=== PATIENT | female | born 1975 | race Caucasian/White ===

== ENCOUNTER 2018-01-08 13:53 | Emergency (ER) | payer BC, SELFPAY ==
[2018-01-08 14:02] VITALS: BP 127/80; PULSE 74; RESP 20; TEMP 36.6; O2SAT 96; BMI 38.2
--- NOTE | 2018-01-08 14:25 | HMH.EDUTC ---
[facility] [place] Impression: Migraine headache without aura Qualifiers: Status migrainosus presence: without status migrainosus Intractability: intractable Qualified Code(s): G43.019 - Migraine without aura, intractable, without status migrainosus Disposition: Home, Self-Care Condition on Discharge: Good Instructions: Migraine -- Adult, DI for Migraine, DI for Chronic Pain -- Adult Additional Instructions: Take over the counter Motrin or Tylenol as needed for pain Go home and lay down and alow medication to help with pain FOllow up with family doctor in 24-48 hours if no improvement or any worsening of symptoms, Straight to ER if any worsening of symptoms or vision disturbances Return if needed Referrals: Romulo Hudson [Primary Care Provider] - Time of Disposition: 14:48 Medical Decision Making - Medical Records Medical records reviewed: Yes: I reviewed the patient's medical records. - Rodríguez Inquiry Pt receiving controlled substance: No Rodríguez was queried for this patient: No Vital Signs: 01/08/18 14:02 01/08/18 15:25 Temperature 98 F 98 F Temperature Source Temporal Artery Scan Pulse Rate 74 Pulse Rate [Right] 74 Respiratory Rate 20 20 Blood Pressure 127/80 Blood Pressure [Right Arm] 127/80 Blood Pressure Mean [Right Arm] 95 Blood Pressure Source [Right Arm] Automatic Cuff Blood Pressure Position [Right Arm] Sitting 02 Sat by Pulse Oximetry 96 Oxygen Delivery Method Room Air Orders (Tests/Meds): ED MEDICATIONS Discontinued Medications Generic Name Dose Route Start Last Admin Trade Name Freq PRN Reason Stop Dose Admin Ketorolac Tromethamine 60 mg 01/08/18 14:38 01/08/18 15:09 Toradol 60mg/2ml Vial IM 01/08/18 14:39 60 mg ONCE ONE Administration Metoclopramide HCl 10 mg 01/08/18 14:38 01/08/18 15:09 Metoclopramide 10mg Tablet PO 01/08/18 14:39 10 mg ONCE ONE Administration [facility] [place] - General Stated complaint: Bad Johnston, Abd Pain Time Seen by Provider: 01/08/18 14:35 Mode of Arrival: Ambulatory Source of Information: Patient Limitations: No Limitations Description of Symptoms (Recalled from Triage Doc. by RN): HEADACHE, NAUSAE TODAY HEENT Symptoms (Recalled from RN notes): Yes Resp Symptoms (Recalled from RN notes): No Skin Symptoms (Recalled from RN notes): No MS Symptoms (Recalled from RN notes): No Functional Status (Recalled from RN notes): N - History of Present Illness Provider Complaint: States that she has a history of migraine headaches State that she hasn't had one since she had her ear piercing done to help control them State that she is having pain behind her eyes and hasn't taken anything for it States that she came in hoping to get an injection that would help with pain - Related Data Home Medications Medication Instructions Recorded Confirmed Lisinopril/Hydrochlorothiazide 20 mg PO DAILY 01/08/18 01/08/18 [Lisinopril-Hctz 20-12.5 mg Tab] Allergies Allergy/AdvReac Type Severity Reaction Status Date / Time medroxyprogesterone Allergy Intermediate I-RASH Verified 01/08/18 14:05 [From PROVERA] [employer] Allergy Mild RASH, Uncoded 10/10/17 14:27 ITCHING - Worker's Comp Is this a Worker's Comp case?: No [facility] History I have reviewed the patient's past medical history: Yes Other Surgeries: Yes: Diagnostic Lap, Hysterectomy-Total, Tubal Ligation Comment: gallbladder, 01/2009 - Social History Smoking Status: Never smoker Alcohol Intake: never - Psychiatric History Expresses thoughts of harming self/others: None Suicide Plan Description: No Plan Family Hx:: Heart Attack, Diabetes, Hypertension ROS Obtained: Yes All systems reviewed & no additional complaints - Constitutional Constitutional: Reports headache(s) Physical Exam - General General appearance: alert, in no apparent distress - Eye Eye exam: Present: normal appearance, PERRL, EOMI - ENT ENT exam: Present: other (De
[2018-01-08 15:25] VITALS: BP 127/80; PULSE 74; RESP 20; TEMP 36.6
== END 2018-01-08 15:38 | disposition home or self-care (01) ==
PROVIDERS: Emergency Provider Nurse Practitioner; Family Provider Internal Medicine; PCP Internal Medicine
DX: G43.019 Migraine without aura, intractable, without status migrainosus (principal); I10 Essential (primary) hypertension
CPT/HCPCS: 96372; 99201

== ENCOUNTER → 2019-03-15 08:57 | Outpatient (CLI) | payer BC, SELFPAY ==
--- NOTE | 2019-03-15 09:01 | MM_ITS ---
MM Dig screening mamm BI w/CAD ORDERING PHYSICIAN : Eyad Cross MD PATIENT AGE: 43 years GENDER: Female COMPARISON: March 22, 2017 bilateral mammogram INDICATION: . Patient takes estradiol 2 mg...: Routine Screening Mammogram no new complaints Family history. Maternal cousin and maternal aunt with breast cancer. TECHNIQUE: Standard CC and MLO images were obtained. R2 CAD reviewed. Additional right axillary cc view included FINDINGS: Low-density breast with generalized fatty replacement. Minimal residual fibroglandular elements. No suspicious nor dominant mass. No suspicious calcifications either breast. No interval change since prior study. There are 2 Small less than 1 cm intramammary nodes at the deep axillary right breast again observed and stable. IMPRESSION: ...... Stable bilateral mammogram. No areas of significant concern. No interval change. Low-density breast Bilateral follow-up in one year. BI-RADS Category: 1 Negative RECOMMENDED FOLLOW-UP: 1YR 1 YEAR FOLLOW-UP (A letter has been sent to the patient regarding results of the study.)
--- NOTE | 2019-03-15 09:01 | US_ITS ---
US transvaginal Ordering Physician: Eyad Cross MD Patient Age: 43 years: Female HISTORY: ITS.REASON: US T/V- F/U on Ovarian Cystfollow-up ovarian cyst MW TECHNIQUE: Transvaginal pelvic ultrasound COMPARISON :Pelvic ultrasound 12/05/2018 FINDINGS Uterus and left ovary have been previously removed. Surgically absent. Overall right ovary appears significantly decreased in size and more normal than previous study. The right ovary appears more normal today:. It measures 2.2 cm maximum length x 1.5 centimeters x 1.3 cm. .(In November it measured over 4 cm length) There is a 1.1 cm hypoechoic area which appears likely residual of previously noted hemorrhagic cyst, debris-filled cyst most likely. .. Significant regression in interval . & At this point not of significant concern. Only One or 2 other small less than 5 mm follicles may be present in the right ovary otherwise . No fluid in cul-de-sac. IMPRESSION Uterus & left ovary have been surgically removed.. . The right ovary has more normal appearance today with marked decrease in overall size since November .. Right ovary now measuring up to 2.2 cm maximally (previously in November over 4 cm size) The previously complex cyst noted in November has decreased significantly size. Only a small residual 1.1 cm debris-filled cyst remains at its inferior pole right ovary seen today.
== END ==
PROVIDERS: PCP Internal Medicine; Visit Provider Nurse Practitioner Obstetrics & Gynecology
DX: Z12.31 Encounter for screening mammogram for malignant neoplasm of breast (principal); N83.209 Unspecified ovarian cyst, unspecified side
CPT/HCPCS: 76830; 77067

== ENCOUNTER → 2020-06-05 17:22 | Outpatient (CLI) | payer BC, SELFPAY | PROVIDERS: PCP Internal Medicine; Visit Provider Internal Medicine | DX: G47.33 Obstructive sleep apnea (adult) (pediatric) (principal); G47.10 Hypersomnia, unspecified; R53.83 Other fatigue; E66.9 Obesity, unspecified; I10 Essential (primary) hypertension | CPT/HCPCS: G0399 ==

== ENCOUNTER 2020-07-26 11:05 | Emergency (ER) | payer BC, SELFPAY ==
[2020-07-26 11:38] VITALS: BP 163/98; PULSE 81; RESP 19; TEMP 37; O2SAT 98; BMI 35.2
--- NOTE | 2020-07-26 11:42 | HMH.EDUTC ---
[facility] [place] Disposition Clinical Impression: URI (upper respiratory infection) Qualifiers: URI type: unspecified URI Qualified Code(s): J06.9 - Acute upper respiratory infection, unspecified Disposition: Home, Self-Care Condition on Discharge: Good Instructions: Sore Throat, DI for Nasal Congestion Additional Instructions: *Monitor Temp, Over the counter Motrin or Tylenol as directed/as needed Tylenol every 4 hours and Motrin every 6 hours (as long as your family doctor has told you that you can take it) for fever or pain. and straight to ER if unable to lower temp less than 101.0 after medication given *Warm salt water gargles may help to soothe the throat *Throat Lozenges *Warm fluids like tea with honey may help to soothe the throat *Sleep elevated *Humidifier/Vaporizer *Flonase 2 sprays in each nostril daily but be aware that it may take 2-3 days before you notice improvement Your throat swab was sent for culture. Those results are typically sent to your primary care. Be sure to follow up in 2-3 days with your family doctor/primary care physician if no improvement so they can review those result and treat if necessary. If you don?t have a primary care doctor, I recommend you get one but in the mean time, you will have to return to a walk in clinic Follow up IMMEDIATELY for new or worsening symptoms or no Noticeable improvement over the next 48-72 hours. 911 for difficulty breathing or swallowing Prescriptions: Fluticasone Propionate [Flonase 50mcg nasal spray 16gm] 1 - 2 spr NS DAILY #1 bottle Transmission Status: Received by [facility] #[id number] Referrals: Romulo Hudson [Primary Care Provider] - As needed Time of Disposition: 11:48 Medical Decision Making - Rodríguez Inquiry Pt receiving controlled substance: No Rodríguez was queried for this patient: No Vital Signs: 07/26/20 11:38 Temperature 98.6 F Temperature Source Oral Pulse Rate [Radial] 81 Respiratory Rate 19 Blood Pressure [Right Arm] 163/98 H Blood Pressure Mean [Right Arm] 119 Blood Pressure Source [Right Arm] Automatic Cuff Blood Pressure Position [Right Arm] Sitting 02 Sat by Pulse Oximetry 98 Oxygen Delivery Method Room Air - Lab Data Lab results reviewed: Yes: I reviewed the patient's lab results. Lab Results 07/26/20 11:20: Strep Scn Rapid Clinic Negative Orders (Tests/Meds): ED MEDICATIONS Discontinued Medications Generic Name Dose Route Start Last Admin Trade Name Heidi VILLEGAS Reason Stop Dose Admin Ceftriaxone Sodium 1 gm 07/26/20 11:45 07/26/20 11:57 Ceftriaxone 1gm Vial IM 07/26/20 11:46 1 gm ONCE ONE Administration Protocol Lidocaine HCl 0 ml 07/26/20 11:45 07/26/20 11:57 Lidocaine 1% 5ml Pf Vial IM 07/26/20 11:46 2.1 ml ONCE ONE Administration Methylprednisolone Sodium Succinate 125 mg 07/26/20 11:45 07/26/20 11:57 Methylprednisolone Sod Succ 125mg Vial IM 07/26/20 11:46 125 mg ONCE ONE Administration ORDERS Category Date Time Status Strep Screen Confirmation Stat Micro 07/26/20 11:20 Received Medical Decision Narrative: Patient reports that she has taken Rocephin and SoluMedrol before without complications and reactions [facility] [place] HPI - General Stated complaint: drainage sinus Time Seen by Provider: 07/26/20 11:15 Mode of Arrival: Ambulatory Source of Information: Patient Limitations: No Limitations Description of Symptoms (Recalled from Triage Doc. by RN): runny nose, sinus pressure, sneezing x 3 days HEENT Symptoms (Recalled from RN notes): Yes Resp Symptoms (Recalled from RN notes): No Skin Symptoms (Recalled from RN notes): No MS Symptoms (Recalled from RN notes): No Functional Status (Recalled from RN notes): wnl - History of Present Illness Provider Complaint: Patient states that she has been having sinus pressure, sneezing and sore throat for several days States that today it was worse and she was worried that she may have strep States that she has been lane
[2020-07-26 11:55] LABS: UTC Strep Screen (Rapid) Negative (Negative)
[2020-07-26 12:15] VITALS: BP 163/98; PULSE 81; RESP 19; TEMP 37; O2SAT 98
== END 2020-07-26 12:16 | disposition home or self-care (01) ==
PROVIDERS: Emergency Provider Nurse Practitioner; PCP Internal Medicine
DX: J06.9 Acute upper respiratory infection, unspecified (principal); E11.9 Type 2 diabetes mellitus without complications; E78.5 Hyperlipidemia, unspecified; I10 Essential (primary) hypertension; Z79.899 Other long term (current) drug therapy; Z88.8 Allergy status to other drugs, medicaments and biological substances; Z90.49 Acquired absence of other specified parts of digestive tract; Z90.710 Acquired absence of both cervix and uterus
CPT/HCPCS: 87880; 96372; 99201

== ENCOUNTER 2020-09-11 11:39 | Emergency (ER) | payer BC, SELFPAY ==
[2020-09-11 12:55] VITALS: BP 133/92; PULSE 84; RESP 18; TEMP 37.1; O2SAT 98; BMI 36.3
--- NOTE | 2020-09-11 13:17 | HMH.EDUTC ---
[facility] [place] Clinical Impression: Viral syndrome, Exposure to COVID-19 virus Disposition: Home, Self-Care Condition on Discharge: Good Instructions: Preventing the Spread of Coronavirus Discharge Instructions Additional Instructions: Drink plenty of fluids. Take tylenol for pain or fever. Return if you begin to have difficulty breathing. Follow up with your regular doctor. GO TO THE ER FOR ANY WORSENING SYMPTOMS Prescriptions: Ondansetron [Zofran 4mg ODT] 4 mg PO Q8HP PRN #12 tab.rapdis PRN Reason: Nausea Transmission Status: Received by [facility] Azithromycin [Z-John 250mg Tab*] 250 mg PO UD DOSE PK #6 tab Transmission Status: Received by [facility] Referrals: Romulo Hudson [Primary Care Provider] - Time of Disposition: 13:21 Medical Decision Making - Medical Records Medical records reviewed: No: I reviewed the patient's medical records. - Rodríguez Inquiry Pt receiving controlled substance: No Vital Signs: 09/11/20 12:55 09/11/20 13:22 Temperature 98.7 F 98.7 F Temperature Source Oral Pulse Rate 84 Pulse Rate [Right Brachial] 84 Respiratory Rate 18 18 Blood Pressure 133/92 H Blood Pressure [Right Arm] 133/92 H Blood Pressure Mean [Right Arm] 105 Blood Pressure Source [Right Arm] Automatic Cuff Blood Pressure Position [Right Arm] Sitting 02 Sat by Pulse Oximetry 98 Oxygen Delivery Method Room Air Orders (Tests/Meds): ORDERS Category Date Time Status Covid-19 Nasal PCR ([facility]) Routine Lab 09/11/20 12:53 Ordered Covid-19 Nasal PCR ([facility]) Routine Lab 09/11/20 12:55 Received [facility] [place]PI - General Stated complaint: Weakness, cough, headache Time Seen by Provider: 09/11/20 13:17 Mode of Arrival: Ambulatory Source of Information: Patient Limitations: No Limitations Description of Symptoms (Recalled from Triage Doc. by RN): PATIENT REQUESTING COVID TEST. C/O COUGH, CONGESTION, AND HEADACHE X 1 WEEK HEENT Symptoms (Recalled from RN notes): Yes Resp Symptoms (Recalled from RN notes): Yes Skin Symptoms (Recalled from RN notes): No MS Symptoms (Recalled from RN notes): No Functional Status (Recalled from RN notes): WNL - History of Present Illness Provider Complaint: She states that she was exposed to covid 19 last week. Over the past 4 days she has had body aches, sore throat, cough, chest congestion. - Related Data Home Medications Medication Instructions Recorded Confirmed atorvastatin 20 mg tablet PO #30 tab 03/30/19 04/09/19 lisinopril 20 PO #30 tab 03/30/19 04/09/19 mg-hydrochlorothiazide 12.5 mg tablet Previous Rx's Medication Instructions Recorded estradiol 2 mg tablet 2 mg PO DAILY #30 tab 02/19/19 Nitrofurantoin Monohyd/M-Cryst 100 mg PO BID 10 Days #20 cap 11/03/19 [Macrobid 100 mg Capsule] Phenazopyridine HCl [Pyridium 200 pow PO TID #6 tab 11/03/19 200mg Tablet] phentermine 37.5 mg tablet 37.5 mg PO DAILY #30 tab 03/04/20 Fluticasone Propionate [Flonase 1 - 2 spr NS DAILY #1 bottle 07/26/20 50mcg nasal spray 16gm] Azithromycin [Z-John 250mg Tab*] 250 mg PO UD DOSE PK #6 tab 09/11/20 Ondansetron [Zofran 4mg ODT] 4 mg PO Q8HP PRN #12 tab.rapdis 09/11/20 Allergies Allergy/AdvReac Type Severity Reaction Status Date / Time medroxyprogesterone Allergy Intermediate I-RASH Verified 04/09/19 17:07 [From PROVERA] hydrocodone Allergy Verified 04/09/19 17:07 [employer] Allergy Mild RASH, Uncoded 04/09/19 17:07 ITCHING - Worker's Comp Is this a Worker's Comp case?: No H History - Hepatitis A Screen Drug use history?: No High risk sexual behaviors?: No History of sexually transmitted infection?: No Currently employed?: No Childcare worker?: No Do you have indoor plumbing?: Yes Do you have electricity?: Yes Attestation statement:: This patient has been screened for Hepatitis A risk factors. I have reviewed the patient's past medical history: Yes Medical His
[2020-09-11 13:22] VITALS: BP 133/92; PULSE 84; RESP 18; TEMP 37.1; O2SAT 98
== END 2020-09-11 13:28 | disposition home or self-care (01) ==
PROVIDERS: Emergency Provider Nurse Practitioner Family; PCP Internal Medicine
DX: Z20.828 Contact with and (suspected) exposure to other viral communicable diseases (principal); B34.9 Viral infection, unspecified; I10 Essential (primary) hypertension; E11.9 Type 2 diabetes mellitus without complications; E78.5 Hyperlipidemia, unspecified; Z79.899 Other long term (current) drug therapy
CPT/HCPCS: 99201; U0003

== ENCOUNTER 2020-09-23 15:08 | Emergency (ER) | payer BC, SELFPAY ==
[2020-09-23 15:35] VITALS: BP 140/89; PULSE 88; RESP 18; TEMP 36.7; O2SAT 95; BMI 36.0
--- NOTE | 2020-09-23 15:45 | HMH.EDUTC ---
[facility] [place] Dis[place] Clinical Impression: Viral upper respiratory infection, Exposure to COVID-19 virus Disposition: Home, Self-Care Condition on Discharge: Good Instructions: Preventing the Spread of Coronavirus Discharge Instructions, Sore Throat, Cough Additional Instructions: *Monitor Temp, Over the counter Motrin or Tylenol as directed/as needed Tylenol every 4 hours and Motrin every 6 hours (as long as your family doctor has told you that you can take it) for fever or pain. and straight to ER if unable to lower temp less than 101.0 after medication given *Warm salt water gargles may help to soothe the throat *Throat Lozenges *Warm fluids like tea with honey may help to soothe the throat *Sleep elevated *Humidifier/Vaporizer Follow up IMMEDIATELY for new or worsening symptoms or no Noticeable improvement over the next 48-72 hours. 911 for difficulty breathing or swallowing You was tested for today for COVID19 your test result should be back in the next 24-48 hours, you may call to the [facility] tomorrow to see if your test results are back however could take up to 48 hours before results are back [phone] [facility] hours are 9am-9pm You was given a handout with instructions for Self Quarantine and Self isolation for while you wait on test results and what to do if they are positive If you are positive the Health Dept will be contacting you also Referrals: Romulo Hudson [Primary Care Provider] - As needed Forms: Work/School Release Time of Disposition: 15:49 Medical Decision Making - Rodríguez Inquiry Pt receiving controlled substance: No Rodríguez was queried for this patient: No Vital Signs: 09/23/20 15:35 Temperature 98.1 F Temperature Source Oral Pulse Rate [Left] 88 Respiratory Rate 18 Blood Pressure [Right Arm] 140/89 Blood Pressure Mean [Right Arm] 106 Blood Pressure Source [Right Arm] Automatic Cuff Blood Pressure Position [Right Arm] Sitting 02 Sat by Pulse Oximetry 95 Oxygen Delivery Method Room Air [facility] [place] HPI - General Stated complaint: Headache, cough, has COVID Time Seen by Provider: 09/23/20 15:45 Mode of Arrival: Ambulatory Source of Information: Patient Limitations: No Limitations Description of Symptoms (Recalled from Triage Doc. by RN): Covid test-symptomatic headache, cough, sore throat x1 week HEENT Symptoms (Recalled from RN notes): Yes Resp Symptoms (Recalled from RN notes): Yes Skin Symptoms (Recalled from RN notes): No MS Symptoms (Recalled from RN notes): No Functional Status (Recalled from RN notes): WNL - History of Present Illness Provider Complaint: Patient state that her recently tested positive for COVID States that for the last week she has been having sore throat, low grade fever, and body aches and worried that she may have it now too States that several other family members recently tested positive also - Related Data Home Medications Medication Instructions Recorded Confirmed atorvastatin 20 mg tablet PO #30 tab 03/30/19 04/09/19 lisinopril 20 PO #30 tab 03/30/19 04/09/19 mg-hydrochlorothiazide 12.5 mg tablet Previous Rx's Medication Instructions Recorded estradiol 2 mg tablet 2 mg PO DAILY #30 tab 02/19/19 Nitrofurantoin Monohyd/M-Cryst 100 mg PO BID 10 Days #20 cap 11/03/19 [Macrobid 100 mg Capsule] Phenazopyridine HCl [Pyridium 200 pow PO TID #6 tab 11/03/19 200mg Tablet] phentermine 37.5 mg tablet 37.5 mg PO DAILY #30 tab 03/04/20 Fluticasone Propionate [Flonase 1 - 2 spr NS DAILY #1 bottle 07/26/20 50mcg nasal spray 16gm] Azithromycin [Z-John 250mg Tab*] 250 mg PO UD DOSE PK #6 tab 09/11/20 Ondansetron [Zofran 4mg ODT] 4 mg PO Q8HP PRN #12 tab.rapdis 09/11/20 Allergies Allergy/AdvReac Type Severity Reaction Status Date / Time medroxyprogesterone Allergy Intermediate I-RASH Verified 04/09/19 17:07 [From PROVERA] hydrocodone Allergy Verified 04/09/19 17:07 [employer] Allergy Mild RASH, Uncoded
[2020-09-23 16:14] VITALS: BP 140/89; PULSE 88; RESP 18; TEMP 36.7; O2SAT 95
[2020-09-25 13:30] LABS: Covid-19 Nasal PCR Sendout Lex NOT DETECTED
== END 2020-09-23 16:18 | disposition home or self-care (01) ==
PROVIDERS: Emergency Provider Nurse Practitioner; PCP Internal Medicine
DX: Z20.828 Contact with and (suspected) exposure to other viral communicable diseases (principal); J06.9 Acute upper respiratory infection, unspecified; I10 Essential (primary) hypertension; E78.5 Hyperlipidemia, unspecified; E11.9 Type 2 diabetes mellitus without complications; Z79.899 Other long term (current) drug therapy
CPT/HCPCS: 99201; U0004

== ENCOUNTER 2020-09-28 15:14 | Emergency (ER) | payer BC, SELFPAY ==
[2020-09-28 15:36] VITALS: BP 140/94; PULSE 98; RESP 19; TEMP 37.1; O2SAT 98; BMI 36.0
--- NOTE | 2020-09-28 15:36 | XR_ITS ---
PROCEDURE: XR CHEST 2V CLINICAL HISTORY: COUGH Fever and cough COMPARISON: No exams were available for comparison FINDINGS: The cardiomediastinal silhouette and pulmonary vascularity are within normal limits. The lungs are clear without infiltrates, suspicious nodules, or pleural effusions. There is a mild lower thoracic curvature convex left. IMPRESSION: No acute findings. Dictated by: Bernardo Harris MD 09/28/2020 16:42 Bernardo Harris MD in [place] 09/28/2020 16:42
[2020-09-28 15:42] VITALS: BP 140/64; PULSE 98; RESP 19; TEMP 37.1; O2SAT 98
--- NOTE | 2020-09-28 15:56 | HMH.EDUTC ---
[facility] [place] Clinical Impression: Bronchitis Sinusitis Qualifiers: Sinusitis location: unspecified location Chronicity: unspecified Qualified Code(s): J32.9 - Chronic sinusitis, unspecified Disposition: Home, Self-Care Condition on Discharge: Good Instructions: Sinusitis, DI for Cough -- Adult, Guaifenesin Additional Instructions: ? Start antibiotic today. Be sure to complete entire prescription even if feeling better ? Monitor temp. Tylenol every 4 hours as needed and / or ibuprofen every 6 hours as needed ( As long as your primary care physician has told you that it ok to take both. For fever/aches/pains ER if no less than 101 despite Tylenol or Motrin ? Humidifier/vaporizer or hot steamy shower ? Inhaler every 4-6 hours as needed like we discussed. If unsure how to use it, ask pharmacist to demonstrate how. Should help open airways and improve cough, wheezing, and shortness of breath ? Mucinex during the day for your cough and cough suppressant only at night. Be sure to drink lots of water. Insurance may not cover a prescriptions for mucinex. Might be cheaper to get 400mg tablets and take 2 tablet in the morning, mid-day and evening with lots of water. *Tessalon Perles will not cause drowsiness but use at bedtime to help stop cough so that you may get some rest. *Start steroid today. Helps with inflammation therefore, cough and wheezing. Follow directions on the package. Reviewed side effects. Patient reports taking them before. Follow up IMMEDIATELY for new or worsening of symptoms OR no noticeable improvement over the next 48-72 hours. 911 immediately for any life threatening symptoms such as chest pain or difficulty breathing Prescriptions: Albuterol Sulfate [Proventil-HFA 90mcg/puff Inh] 1 - 2 puffs IH Q4HP PRN #1 inh PRN Reason: Shortness Of Breath Transmission Status: [facility] Amoxicillin/Potassium Clav [Augmentin 875-125 Tablet] 1 tab PO Q12H 10 Days #20 tab Transmission Status: Re[facility] by [facility] Referrals: Romulo Hudson [Primary Care Provider] - As needed Forms: Work/School Release Time of Disposition: 16:26 Medical Decision Making - Rodríguez Inquiry Pt receiving controlled substance: No Rodríguez was queried for this patient: No Vital Signs: 09/28/20 15:36 09/28/20 15:42 Temperature 98.7 F 98.7 F Temperature Source Oral Pulse Rate 98 H Pulse Rate [Left] 98 H Respiratory Rate 19 19 Blood Pressure 140/64 Blood Pressure [Right Arm] 140/94 H Blood Pressure Mean [Right Arm] 109 Blood Pressure Source [Right Arm] Automatic Cuff Blood Pressure Position [Right Arm] Sitting 02 Sat by Pulse Oximetry 98 Oxygen Delivery Method Room Air Room Air Orders (Tests/Meds): ORDERS Category Date Time Status Covid-19 Nasal PCR [facility] 09/28/20 15:30 Received - Radiology Data #1 Image(s): Chest Image Reviewed: Yes I reviewed the patient's radiology image Preliminary Findings: Normal/NAD Medical Decision Narrative: Patient state that she has taken augmentin before without reactions or complications [facility] [place] - General Stated complaint: wants Covid test,treated for systoms Time Seen by Provider: 09/28/20 15:56 Mode of Arrival: Ambulatory Source of Information: Patient Limitations: No Limitations Description of Symptoms (Recalled from Triage Doc. by RN): Covid test-cough, sore throat, headache, chest discomfort when coughing HEENT Symptoms (Recalled from RN notes): Yes Resp Symptoms (Recalled from RN notes): Yes Skin Symptoms (Recalled from RN notes): No MS Symptoms (Recalled from RN notes): No Functional Status (Recalled from RN notes): wnl - History of Present Illness Provider Complaint: Patient state that her was positive for COVID and she was having symptoms last week and was tested and was negative States that she still isn[t feeling any better and wanted to get a chest xray State that she has pain in her left upper lung
[2020-09-30 14:00] LABS: Covid-19 Nasal PCR Sendout Lex NOT DETECTED
== END 2020-09-28 16:45 | disposition home or self-care (01) ==
PROVIDERS: Emergency Provider Nurse Practitioner; PCP Internal Medicine
DX: Z20.828 Contact with and (suspected) exposure to other viral communicable diseases (principal); J20.9 Acute bronchitis, unspecified; J32.9 Chronic sinusitis, unspecified; I10 Essential (primary) hypertension; Z79.899 Other long term (current) drug therapy
CPT/HCPCS: 71046; 99202; U0004

== ENCOUNTER 2021-01-29 12:59 | Emergency (ER) | payer BC, SELFPAY ==
[2021-01-29 13:10] VITALS: BP 138/116; PULSE 105; RESP 14; TEMP 37.3; O2SAT 96; BMI 36.0
[2021-01-29 13:38] LABS: UTC Influenza A Antigen Negative (Negative)
[2021-01-29 13:39] LABS: UTC Influenza B Antigen Negative (Negative)
--- NOTE | 2021-01-29 13:47 | HMH.EDUTC ---
[facility] [place] Disposition Clinical Impression: Viral syndrome Disposition: Home, Self-Care Condition on Discharge: Good Instructions: DI for Viral Syndrome Additional Instructions: Drink plenty of fluids. Take tylenol for pain or fever. Return if you begin to have difficulty breathing. Follow up with your regular doctor. GO TO THE ER FOR ANY WORSENING SYMPTOMS Take the zofran (ondesetron) for nausea. If your diarrhea continues, please return a sample to the lab for evaluation. Prescriptions: ondansetron HCL [Zofran 4mg Tab*] 4 mg PO Q8HP PRN #20 tab PRN Reason: Nausea Transmission Status: Received by [facility] Referrals: Romulo Hudson [Primary Care Provider] - Time of Disposition: 14:15 Medical Decision Making - Medical Records Medical records reviewed: No: I reviewed the patient's medical records. - Rodríguez Inquiry Pt receiving controlled substance: No Vital Signs: 01/29/21 13:10 01/29/21 14:20 Temperature 99.1 F 99.1 F Temperature Source Oral Oral Pulse Rate 102 H Pulse Rate [Right] 105 H Respiratory Rate 14 18 Blood Pressure 138/116 H Blood Pressure [Right Arm] 138/116 H Blood Pressure Mean [Right Arm] 123 Blood Pressure Source [Right Arm] Automatic Cuff Blood Pressure Position Sitting Blood Pressure Position [Right Arm] Sitting 02 Sat by Pulse Oximetry 96 Oxygen Delivery Method Room Air Room Air - Lab Data Lab results reviewed: Yes: I reviewed the patient's lab results. Lab Results 01/29/21 13:17: Influenza Type A Ag Negative, Influenza Type B Ag Negative [facility] [place] HPI - General Stated complaint: Weakness; diarhea Time Seen by Provider: 01/29/21 13:47 Mode of Arrival: Ambulatory Limitations: No Limitations Description of Symptoms (Recalled from Triage Doc. by RN): pt states she has been feeling bad for a couple of days. she has watery diarhea and states she passed out Wed. pt was exposed directly to the flu. HEENT Symptoms (Recalled from RN notes): No Resp Symptoms (Recalled from RN notes): No Skin Symptoms (Recalled from RN notes): No MS Symptoms (Recalled from RN notes): No Functional Status (Recalled from RN notes): na - History of Present Illness Provider Complaint: She states that for the past 2 days she has felt bad and had a diarrhea. She has not vomited, but she has had nausea. - Related Data Home Medications Medication Instructions Recorded Confirmed atorvastatin 20 mg tablet PO #30 tab 03/30/19 04/09/19 lisinopril 20 PO #30 tab 03/30/19 04/09/19 mg-hydrochlorothiazide 12.5 mg tablet Previous Rx's Medication Instructions Recorded estradiol 2 mg tablet 2 mg PO DAILY #30 tab 02/19/19 Nitrofurantoin Monohyd/M-Cryst 100 mg PO BID 10 Days #20 cap 11/03/19 [Macrobid 100 mg Capsule] Phenazopyridine HCl [Pyridium 200 pow PO TID #6 tab 11/03/19 200mg Tablet] phentermine 37.5 mg tablet 37.5 mg PO DAILY #30 tab 03/04/20 Fluticasone Propionate [Flonase 1 - 2 spr NS DAILY #1 bottle 07/26/20 50mcg nasal spray 16gm] Azithromycin [Z-John 250mg Tab*] 250 mg PO UD DOSE PK #6 tab 09/11/20 Ondansetron [Zofran 4mg ODT] 4 mg PO Q8HP PRN #12 tab.rapdis 09/11/20 Albuterol Sulfate [Proventil-HFA 1 - 2 puffs IH Q4HP PRN #1 inh 09/28/20 90mcg/puff Inh] Amoxicillin/Potassium Clav 1 tab PO Q12H 10 Days #20 tab 09/28/20 [Augmentin 875-125 Tablet] ondansetron HCL [Zofran 4mg Tab*] 4 mg PO Q8HP PRN #20 tab 01/29/21 Allergies Allergy/AdvReac Type Severity Reaction Status Date / Time medroxyprogesterone Allergy Intermediate I-RASH Verified 01/29/21 13:10 [From PROVERA] hydrocodone Allergy Verified 01/29/21 13:10 [employer] SWE[employer]ERS Allergy Mild RASH, Uncoded 04/09/19 17:07 ITCHING - Worker's Comp Is this a Worker's Comp case?: No H History - Hepatitis A Screen Drug use history?: No High risk sexual behaviors?: No History of sexually transmitted infection?: No Currently employed?: No [employer]
[2021-01-29 14:20] VITALS: BP 138/116; PULSE 102; RESP 18; TEMP 37.3; O2SAT 98
== END 2021-01-29 14:22 | disposition home or self-care (01) ==
PROVIDERS: Emergency Provider Nurse Practitioner Family; PCP Internal Medicine
DX: B34.9 Viral infection, unspecified (principal); I10 Essential (primary) hypertension; E78.5 Hyperlipidemia, unspecified; Z79.899 Other long term (current) drug therapy
CPT/HCPCS: 87804; 99202; G0463

== ENCOUNTER → 2021-06-11 10:46 | Outpatient (CLI) | payer BC, SELFPAY | PROVIDERS: PCP Internal Medicine; Visit Provider Internal Medicine | DX: Z20.822 Contact with and (suspected) exposure to COVID-19 (principal) | CPT/HCPCS: U0003 ==

== ENCOUNTER → 2021-08-30 10:48 | Outpatient (CLI) | payer BC, SELFPAY | PROVIDERS: PCP Internal Medicine; Visit Provider Nurse Practitioner | DX: Z20.822 Contact with and (suspected) exposure to COVID-19 (principal) | CPT/HCPCS: C9803; U0003; U0005 ==

== ENCOUNTER 2021-09-03 10:57 | Emergency (ER) | payer BC, SELFPAY ==
[2021-09-03 11:00] VITALS: BP 148/99; PULSE 87; RESP 22; TEMP 36.5; O2SAT 96; BMI 34.9
--- NOTE | 2021-09-03 11:24 | HMH.EDUTC ---
[facility] [place] Clinical Impression: URI (upper respiratory infection) Qualifiers: URI type: unspecified URI Qualified Code(s): J06.9 - Acute upper respiratory infection, unspecified Disposition: Home, Self-Care Condition on Discharge: Good Instructions: DI for Cough -- Adult, Benzonatate Additional Instructions: Continue taking medication as prescribed Follow up with your Family Doctor if no improvement or any worsening of symptoms Return if needed Humidifier/Vaporizer may help with cough and throat irritation Straight to ER if any life threatening symptoms Prescriptions: Benzonatate [Benzonatate 100mg cap] 100 mg PO TID PRN #15 cap PRN Reason: Cough Transmission Status: Received by [facility] Referrals: Romulo Hudson [Primary Care Provider] - As needed Forms: Work/School Release Time of Disposition: 12:10 Medical Decision Making - Rodríguez Inquiry Pt receiving controlled substance: No Rodríguez was queried for this patient: No Vital Signs: 09/03/21 11:00 09/03/21 12:21 Temperature 97.7 F 97.7 F Temperature Source Oral Pulse Rate 87 Pulse Rate [Right Brachial] 87 Respiratory Rate 22 22 Blood Pressure 148/99 H Blood Pressure [Right Arm] 148/99 H Blood Pressure Mean [Right Arm] 115 Blood Pressure Source [Right Arm] Automatic Cuff Blood Pressure Position [Right Arm] Sitting 02 Sat by Pulse Oximetry 96 Oxygen Delivery Method Room Air - Lab Data Lab results reviewed: Yes: I reviewed the patient's lab results. Orders (Tests/Meds): ED MEDICATIONS Discontinued Medications Generic Name Dose Route Start Last Admin Trade Name Freq PRN Reason Stop Dose Admin Ceftriaxone Sodium 1 gm 09/03/21 12:16 09/03/21 12:10 Ceftriaxone 1gm Vial IM 09/03/21 12:17 1 gm ONCE ONE Administration Lidocaine HCl 0 ml 09/03/21 12:16 09/03/21 12:10 Lidocaine 1% 5ml Pf Vial IM 09/03/21 12:17 2.1 ml ONCE ONE Administration - Radiology Data #1 Image(s): Chest Image Reviewed: Yes I have reviewed radiologist's interpretation No acute findings. [facility] [place] - General Stated complaint: possible bronchitis Time Seen by Provider: 09/03/21 11:24 Mode of Arrival: Ambulatory Source of Information: Patient Limitations: No Limitations Description of Symptoms (Recalled from Triage Doc. by RN): PATIENT C/O PRODUCTIVE COUGH WITH GREEN/BROWN SPUTUM, WEAKNESS, AND PAIN TO CHEST AND BACK WITH COUGH. WAS TREATED LAST WEEK WITH PO ANTIBIOTIC AND STEROID SHOT. DOES NOT FEEL BETTER HEENT Symptoms (Recalled from RN notes): No Resp Symptoms (Recalled from RN notes): Yes Skin Symptoms (Recalled from RN notes): No MS Symptoms (Recalled from RN notes): Yes Functional Status (Recalled from RN notes): WNL - History of Present Illness Provider Complaint: Patient states that seen PCP last week and was given a shot in the office States that it was not getting any better so she went back and was tested for COVID on Monday and it was negative and she was still having symptoms and saw him again and he give her another shot of something , cough tablets and a zpack States that she has been taking it but still not feeling like it is working so she came in to get checked again - Related Data Home Medications Medication Instructions Recorded Confirmed Liraglutide [Victoza 2-John] 1.8 mg SQ DAILY 09/03/21 09/03/21 Omeprazole [Omeprazole 40mg 40 mg PO DAILY 09/03/21 09/03/21 Capsule] estradioL [Estradiol] 2 mg PO DAILY 09/03/21 09/03/21 lisinopriL [Lisinopril] 20 mg PO DAILY 09/03/21 09/03/21 Previous Rx's Medication Instructions Recorded Benzonatate [Benzonatate 100mg 100 mg PO TID PRN #15 cap 09/03/21 cap] Allergies Allergy/AdvReac Type Severity Reaction Status Date / Time medroxyprogesterone Allergy Intermediate I-RASH Verified 01/29/21 13:10 [From PROVERA] hydrocodone Allergy Verified 01/29/21 13:10 [employer] SWEET[employer]ERS Allergy Mild RASH, Uncoded 04/09/19 17:07
--- NOTE | 2021-09-03 11:26 | XR_ITS ---
PROCEDURE: XR CHEST 2V CLINICAL HISTORY: cough COMPARISON: CR XR CHEST 2V from 09/28/2020 FINDINGS: The cardiomediastinal silhouette and pulmonary vascularity are within normal limits considering a slightly poor inspiration. The lungs are clear without infiltrates, suspicious nodules, or pleural effusions. No acute bony abnormalities. There is minor serpentine scoliotic curvature of the thoracic and lumbar spine. IMPRESSION: No acute findings. Dictated by: Dr. Bandar Helton MD 09/03/2021 11:49 Dr. Bandar Helton MD in [place] 09/03/2021 11:49
[2021-09-03 12:21] VITALS: BP 148/99; PULSE 87; RESP 22; TEMP 36.5; O2SAT 96
== END 2021-09-03 12:35 | disposition home or self-care (01) ==
PROVIDERS: Emergency Provider Nurse Practitioner; PCP Internal Medicine
DX: J06.9 Acute upper respiratory infection, unspecified (principal); E78.5 Hyperlipidemia, unspecified; I10 Essential (primary) hypertension; Z20.822 Contact with and (suspected) exposure to COVID-19
CPT/HCPCS: 71046; 96372; 99202; C9803; G0463; U0003; U0005

== ENCOUNTER → 2021-11-21 12:01 | Outpatient (CLI) | payer OTHER, SELFPAY | PROVIDERS: Visit Provider Nurse Practitioner | DX: Z20.822 Contact with and (suspected) exposure to COVID-19 (principal) | CPT/HCPCS: C9803; U0003; U0005 ==

== ENCOUNTER 2021-12-12 09:01 | Emergency (ER) | payer BC, SELFPAY ==
[2021-12-12 09:20] VITALS: BP 148/100; PULSE 91; RESP 19; TEMP 37; O2SAT 97; BMI 34.2
[2021-12-12 09:49] LABS: UTC Strep Screen (Rapid) Positive (Negative)
--- NOTE | 2021-12-12 10:01 | HMH.EDUTC ---
[facility] [place] Disposition Clinical Impression: Strep throat Conjunctivitis Qualifiers: Conjunctivitis type: unspecified Laterality: right Qualified Code(s): H10.9 - Unspecified conjunctivitis Disposition: Home, Self-Care Condition on Discharge: Good Instructions: Strep Throat, DI for Strep Throat Additional Instructions: *Monitor Temp, Over the counter Motrin or Tylenol as directed/as needed Tylenol every 4 hours and Motrin every 6 hours (as long as your family doctor has told you that you can take it) for fever or pain. and straight to ER if unable to lower temp less than 101.0 after medication given *Warm salt water gargles may help to soothe the throat *Throat Lozenges *Warm fluids like tea with honey may help to soothe the throat *Sleep elevated *Humidifier/Vaporizer *If you did not take Penicillin shot or was unable to, start taking antibiotic immediately and make sure that you take it for the FULL length of time although you should start to feel better in 24-48 hours *change toothbrush and toothpaste 24-48 hours after starting to take antibiotics so you do not reinfect yourself Monitor Temp. Tylenol and/or Ibuprofen as needed. ER if fever is no less than 101 despite alternating Tylenol and Ibuprofen * Encourage fluids, water, Gatorade, powerade, pedialyte if infant/toddler/or child *Cold fluids, popsicles and ice cream may feel good on his throat Follow up IMMEDIATELY for new or worsening symptoms or no Noticeable improvement over the next 48-72 hours. 911 for difficulty breathing or swallowing Prescriptions: Amoxicillin [Amoxicillin 875MG Tab] 875 mg PO Q12H #20 tab Transmission Status: Sent to [facility] Fluticasone Propionate [Flonase 50mcg nasal spray 16gm] 1 spr NS DAILY #1 each Transmission Status: Sent to [facility] Polymyxin B Sulf/Trimethoprim [Polytrim Ophth Soln 10mL Bottle] 2 drops EYE-RIGHT Q6H 7 Days #10 ml Transmission Status: Sent to [facility] Referrals: Romulo Hudson [Primary Care Provider] - As needed Time of Disposition: 10:10 Medical Decision Making - Rodríguez Inquiry Pt receiving controlled substance: No Rodríguez was queried for this patient: No Vital Signs: 12/12/21 09:20 12/12/21 10:23 Temperature 98.6 F 98.6 F Temperature Source Oral Pulse Rate 91 H Pulse Rate [Right Brachial] 91 H Respiratory Rate 19 19 Blood Pressure 148/100 H Blood Pressure [Right Arm] 148/100 H Blood Pressure Mean [Right Arm] 116 Blood Pressure Source [Right Arm] Automatic Cuff Blood Pressure Position [Right Arm] Sitting 02 Sat by Pulse Oximetry 97 Oxygen Delivery Method Room Air - Lab Data Lab results reviewed: Yes: I reviewed the patient's lab results. Lab Results 12/12/21 09:39: Strep Scn Rapid Clinic Positive A Orders (Tests/Meds): ED MEDICATIONS Discontinued Medications Generic Name Dose Route Start Last Admin Trade Name Freq PRN Reason Stop Dose Admin Methylprednisolone Sodium Succinate 125 mg 12/12/21 10:08 12/12/21 10:15 Methylprednisolone Sod Succ 125mg Vial IM 12/12/21 10:09 125 mg ONCE ONE Administration [facility] [place] HPI - General Stated complaint: fluid on ear,pain,cough Time Seen by Provider: 12/12/21 10:01 Mode of Arrival: Ambulatory Source of Information: Patient Limitations: No Limitations Description of Symptoms (Recalled from Triage Doc. by RN): PATIENT C/O FLUID ON EAR, INFECTED RIGHT EYE, SORE THROAT AND CONGESTION X 3 DAYS HEENT Symptoms (Recalled from RN notes): Yes Resp Symptoms (Recalled from RN notes): No Skin Symptoms (Recalled from RN notes): No MS Symptoms (Recalled from RN notes): No Functional Status (Recalled from RN notes): WNL - History of Present Illness Provider Complaint: Patient state that she has been having pain in her left ear and feeling of fullness like there is fluid in there, States that she has also had matting, redness and drainage in her right eye and sore throat so today she came in to get checke
[2021-12-12 10:23] VITALS: BP 148/100; PULSE 91; RESP 19; TEMP 37; O2SAT 97
== END 2021-12-12 10:30 | disposition home or self-care (01) ==
PROVIDERS: Emergency Provider Nurse Practitioner; PCP Internal Medicine
DX: J02.0 Streptococcal pharyngitis (principal); H10.31 Unspecified acute conjunctivitis, right eye; I10 Essential (primary) hypertension
CPT/HCPCS: 87880; 96372; 99202; 99212; 99213; G0463

== ENCOUNTER → 2021-12-14 10:30 | Outpatient (CLI) | payer BC, SELFPAY ==
--- NOTE | 2021-12-14 10:40 | XR_ITS ---
FINAL REPORT TECHNIQUE: Chest PA & Lateral CLINICAL HISTORY: HTN,TYPE II DIABETIES , upcoming bariatric sx COMPARISON: September 03, 2021 FINDINGS: 2 views of the chest were performed. The heart size is normal. The mediastinum is within normal limits. There is no acute cardiopulmonary process. There are no pleural effusions. There is no pneumothorax. The bony thorax appears intact. IMPRESSION: No acute cardiopulmonary process. Reviewed, Interpreted and Dictated by Keon Goins MD Transcribed by Pablo Vigil Authenticated by Keon Goins MD on 12/14/2021 12:44:53 PM [facility]
--- NOTE | 2021-12-14 10:59 | ECG_ITS ---
APPROVED REPORT Exam: Resting ECG HR:71 bpm ECG Measurements Heart Rate 71 AXES NM 155 P 46 QRSd 106 QRS 44 QT 393 T 14 QTc 416 Conclusion SINUS RHYTHM NORMAL ECG UNCONFIRMED REPORT Electronically signed by : Romulo Hudson MD 12/28/2021 17:17:46
[2021-12-14 12:03] LABS: Basophils # 0.1 K/mm3 (0-0.2); Basophils % 0.8 % (0.1-2.0); Eosinophils # 0.7 K/mm3 (0.0-0.4); Eosinophils % 4.6 % (0.1-12.0); Hematocrit 42.3 % (37.0-47.0); Hemoglobin 14.2 g/dL (12.2-16.2); Lymphocytes # 2.8 K/mm3 (0.7-4.5); Lymphocytes % 17.7 % (10-50); Mean Corpuscular HGB Conc 33.5 g/dL (31.8-35.4); Mean Corpuscular Hemoglobin 32.8 pg (27.0-31.2); Mean Platelet Volume 7.9 fl (7.4-10.4); Monocytes # 0.6 K/mm3 (0.1-1.0); Monocytes % 3.8 % (1.7-9.3); Neutrophils # 11.5 K/mm3 (1.8-7.8); Neutrophils % 73.1 % (37.0-80.0); Platelet Count 386 K/mm3 (142-424); Red Blood Count 4.32 M/mm3 (4.20-5.40); Red Cell Distribution Width 13.6 % (11.5-17.5); White Blood Count 15.7 K/mm3 (4.8-10.8)
[2021-12-14 12:10] LABS: MANUAL DIFFERENTIAL MANUAL DIFFERENTIAL (MANUAL DIFF)
[2021-12-14 12:54] LABS: Chloride 99 mmol/L (98-107); Potassium 3.8 mmoL/L (3.5-5.1); Sodium 135 mmol/L (136-145)
[2021-12-14 12:56] LABS: Alanine Aminotransferase 21 U/L (12-78); Alkaline Phosphatase 78 U/L (38-126); Aspartate Amino Transferase 31 U/L (14-36); Bilirubin,Total 0.5 mg/dl (0.2-1.3); Blood Urea Nitrogen 19 mg/dl (7-17); Estimated Glomerular Filt Rate 77 ml/min (>60); GFR (African American) 93 ML/MIN (>60)
[2021-12-14 12:57] LABS: Albumin Level 3.8 g/dl (3.5-5.0); Anion Gap 10.8 mEq/L (5-15); Calcium 8.4 mg/dl (8.4-10.2); Carbon Dioxide 29 mmol/L (22.0-30.0); Chol/HDL Ratio 2.7 (1-3.5); Cholesterol 142 mg/dl (140-200); Globulin 3.7 g/dL (1.3-3.2); Glucose 78 mg/dl (74-100); HDL Cholesterol 52 mg/dl (40-60); Iron 108 ug/dL (37-170); Magnesium 1.8 mg/dl (1.6-2.3); Phosphorous 4.2 mg/dl (2.5-4.5); Total Protein,Serum 7.5 g/dl (6.3-8.2); Triglycerides 197 mg/dl (30-150); VLDL Cholesterol 39 mg/dL (0-40)
[2021-12-14 13:03] LABS: 25-OH Vitamin D, Total 39.4 ng/mL (30-100)
[2021-12-14 13:07] LABS: Total Iron Binding Capacity 326 ug/dL (265-497)
[2021-12-14 13:08] LABS: Direct LDL Cholesterol 65.97 mg/dL (100-129)
[2021-12-14 13:10] LABS: Hemoglobin A1C 5.2 % (4.0-6.0)
[2021-12-14 13:28] LABS: Thyroid Stimulating Hormone 6.02 uIU/mL (0.465-4.68)
[2021-12-14 13:32] LABS: Ferritin 75.9 ng/ml (6.24-137)
[2021-12-14 13:44] LABS: Intact Parathyroid Hormone 33.2 pg/mL (7.5-53.5)
[2021-12-14 14:42] LABS: Folate 5.92 ng/mL
[2021-12-14 15:37] LABS: Eosinophils % 3 % (0-3); Lymphocytes % 15 % (10-50); Monocytes % 6 % (2-9); Neutrophils % 76 % (42-76); Platelet Estimate Normal; Total Cells Counted 100
[2021-12-15 08:29] LABS: Prealbumin 25 mg/dL (12-34)
[2021-12-21 00:07] LABS: Vitamin B1 175.2 nmol/L (66.5-200.0)
[2021-12-22 13:24] LABS: Vitamin A 59.8 ug/dL (20.1-62.0)
[2021-12-22 13:24] LABS: Vitamin E Alpha Tocopherol 8.3 mg/L (7.0-25.1); Vitamin E Gamma Tocopherol 3.5 mg/L (0.5-5.5)
[2021-12-23 12:19] LABS: Methylmalonic Acid 1582 nmol/L (0-378)
== END ==
LOC: LAB 10:34 → RAD 10:35
PROVIDERS: Physician Assistant; PCP Internal Medicine; Visit Provider Internal Medicine
DX: Z01.810 Encounter for preprocedural cardiovascular examination (principal); Z01.811 Encounter for preprocedural respiratory examination; E11.9 Type 2 diabetes mellitus without complications; I10 Essential (primary) hypertension; E66.01 Morbid (severe) obesity due to excess calories; Z71.3 Dietary counseling and surveillance
CPT/HCPCS: 36415; 71046; 80053; 80061; 82131; 82306; 82728; 82746; 83036; 83540; 83550; 83735; 83970; 84100; 84134; 84425; 84443; 84446; 84590; 85007; 85025; 93005

== ENCOUNTER → 2022-01-31 07:55 | Outpatient (CLI) | payer BC, SELFPAY ==
[2022-01-31 08:35] VITALS: PULSE 92; PULSE 96
== END ==
PROVIDERS: PCP Internal Medicine; Visit Provider Internal Medicine Pulmonary Disease
DX: R06.00 Dyspnea, unspecified (principal)
CPT/HCPCS: 94060; 94618; 94640; 94727; 94729

== ENCOUNTER → 2022-02-01 07:57 | Outpatient (CLI) | payer BC, SELFPAY ==
--- NOTE | 2022-02-01 | CA_ITS ---
APPROVED REPORT Exam: Exercise Treadmill Technologist: Kelin Quick, Ht: 5 ft 4 in Wt: 213 lbs BSA: 2.01 m2 HR: 66 bpm BP: 119/74 mmHg Rhythm: NSR, T wave abn in leads 3 and a VF Medical History Medical History: HTN, Hyperlipidemia Medications: Lisinopril,,,,, Omeprazole,,,,, Levothyroxine,,,,, Estradiol,,,,, AtorvaASTATIN,,,,, Liraglutide,,,,, Cardiac Risk Factors: HTN, Hyperlipidemia, FHX of CAD Stress Test Details Test: Jack HR Resting HR: 94 bpm Max Heart Rate (APMHR): 174.881292 bpm Max HR Achieved: 164 bpm Target HR (85% APMHR): 147.155487 bpm % of APMHR: 94.25 Recovery HR: 144 bpm BP Resting BP: 100/72 mmHg Max BP: 188/80 mmHg Recovery BP: 142.0/78.0 mmHg ECG Resting ECG: NSR, T wave abn in lead 3 and aVF Clinical Exercise duration: 07:01 min Highest Stage Achieved: Exercise capacity: 10.1 METs Stress ECG Conclusion Pt exercised total of 7:00 on jack protocol. No CP noted. Rare PVC noted. No significant changes compared to baseline. Probably normal GXT but with decreased sensitivity due to baseline EKG abns. Myoview images reported separately. Test Summary RECOVERY 05:17 0.0 0.0 112 . 118/ 83 . . REST . . . . . . . Standing REST 04:17 0.0 0.0 94 . 100/ 72 . . Stage 1 01:00 10.0 1.7 120 . . . . Stage 1 02:00 10.0 1.7 136 . . . . Stage 1 03:00 10.0 1.7 140 . 168/ 80 . . Stage 2 01:00 12.0 2.5 142 . . . . Stage 2 02:00 12.0 2.5 153 . . . . Stage 2 03:00 12.0 2.5 157 . 188/ 80 . . Stage 3 01:00 14.0 3.4 164 . . . . Stage 3 01:01 14.0 3.4 164 . . . Stop exercise at 07:01 RECOVERY 01:00 0.0 0.0 145 . 142/ 78 . . RECOVERY 02:00 0.0 0.0 124 . 142/ 78 . . RECOVERY 03:00 0.0 0.0 118 . 122/ 65 . . RECOVERY 04:00 0.0 0.0 110 . 122/ 65 . . RECOVERY 05:00 0.0 0.0 106 . 118/ 83 . . RECOVERY 05:17 0.0 0.0 112 . 118/ 83 . . Electronically signed by : Lei Tejeda MD 02/01/2022 18:32:10
--- NOTE | 2022-02-01 07:58 | CA_ITS ---
APPROVED REPORT EXAM: Comprehensive 2D, Doppler, and color-flow Echocardiogram Construction Engineer: Erin Desir CRT Ht: 5 ft 6 in Wt: 214lbs BSA: 2.06 BP: 112/78 mmHg Indications: Abnormal ECG, Hyperlipidemia, Hypertension/HDD, pre-op gastric bypass 2D Dimensions LVOT 1.82 cm (M/F) 1.5-2.5 LA Volume 26.70 mL LA Volume Index 13.00 mL/m2 (M/F) 16-34 M-Mode Dimensions RVDd 3.29 cm (0.9-2.6) LA Diam 3.63 cm (1.9-4.0) LVDd 4.86 cm (3.5-5.7) Ao Diam 3.83 cm (2.0-3.7) LVDs 2.54 cm (3.5-5.7) IVSd 0.66 cm (0.6-1.1) PWd 0.94 cm (0.6-1.1) EF (Teich) 79.00% FS 47.70% EDV (Teich) 110.70 mL ESV (Teich) 23.20 mL LV Diastology E Decel Time 170.00 (160-240 msec) E/A Ratio 0.86 MED E' 4.90 (< 7 cm/sec) MED A' 7.20 cm/s E'/MED E' Ratio 12.43 (>14) LAT E' 12.40 (<10 cm/sec) LAT A' 10.20 cm/s E/LAT E' Ratio 4.91 (>14) Aortic Valve AO Peak GR. 7.20 mmHg Mitral Valve MV E Max Christofer. 61.00 (40-130 cm/s) MV A Velocity 71.00 (40-130 cm/s) E/A Ratio 0.86 MV Decel. Time 170.00 (160-240 ms) MV PHT 50.00 ms Pulmonary Valve PV Peak Velocity 88.00 (50-150 cm/s) Tricuspid Valve TR P. Velocity 215.00 cm/s RAP Estimate 10.00 mmHg RVSP 28.50 mmHg Left Ventricle Left atrium is mildly enlarged, left ventricle is normal size, mild concentric left ventricular hypertrophy, estimated ejection fraction 55% with no regional wall motion abnormality, grade 1 diastolic dysfunction seen without tissue Doppler evidence of raise left atrial pressure. Right Ventricle Right atrium and right ventricle are mildly noted with normal contractility. Aortic Valve Aortic valve is minimally thickened and fibrosed there is no aortic stenosis or aortic insufficiency. Mitral Valve Mitral valve grossly normal, there is trace mitral regurgitation. Tricuspid Valve Tricuspid grossly normal, there is trace tricuspid regurgitation, tricuspid regurgitation jet velocity is inadequate for calculation of the right ventricular systolic pressure. Pulmonic Valve Pulmonic valve is poorly visualized. Great Vessels Aortic root is normal size. Inferior vena cava is poorly visualized. Pericardium No significant pericardial effusion noted. Conclusion 1. Mild biatrial enlargement, normal left ventricular size, mild concentric left ventricular hypertrophy, estimated ejection fraction 55% with no regional wall motion abnormality, grade 1 diastolic dysfunction seen without tissue Doppler evidence of raise left atrial pressure. 2. Mildly enlarged right ventricle with normal contractility. 3. Trace mitral and tricuspid regurgitation. 4. No significant pericardial effusion noted. 5. Inferior vena cava is poorly visualized. Electronically signed by : Lei Tejeda MD 02/01/2022 20:11:30
--- NOTE | 2022-02-01 08:04 | NM_ITS ---
APPROVED REPORT Exam: Nuclear Stress Test Indication: Abnormal EKG, HTN, DM, High cholesterol, Family history Patient Location: Outpatient Stress Tech: Kelin SCHMIDT Tech:Ya Easley, ARRT, RT (R)(N) Ht: 5 ft 4 in Wt: 213 lbs Bra Size: 42C HR: 94 bpm BP: 100/72 mmHg BSA: 2.01 m2 BMI: 36.5 History: Abnormal EKG, HTN, DM, High cholesterol, Family history Procedure: Patient exercised on Jake protocol 7:01 minutes and sec, resting heart rate 94 bpm, resting blood pressure 100/72 mmHg, with exercise maximum heart rate achived was 164 bpm which is 94 % of the maximum predicted heart rate and blood pressure was 188/80 mmHg. Test was stopped due to SOA. Patient denied any complaint of chest pain. Patient has good exercise capacity, achieved 10.1 METs of workload on treadmill, the blood pressure response to exercise was Adequate. Electrocardiogram Resting electrocardiogram shows sinus rhythm, with exercise there is less than 1.[address] segment depression noted from the baseline EKG. The EKG portion of the exercise Myoview is negative for ischemia. Cardiac Stress and Resting SPECT Images: Gated SPECT for analysis of segmental wall motion and calculation of the ejection fraction also done. Cardiac stress and resting SPECT images show uniform myocardial activity without segmental perfusion abnormality, computer derived ejection fraction is 50% with no regional wall motion abnormality, right ventricle is normal size and contractility. Conclusion: 1. The EKG portion of the exercise Myoview is negative for ischemia, patient has good exercise capacity achieved 10.1 METs of workload on treadmill, the blood pressure response to exercise was adequate, there was no exercise-induced chest discomfort. 2. No scintigraphic evidence of reversible ischemia seen, computer derived ejection fraction is 50% with no regional wall motion abnormality, right ventricle is normal size and contractility. 3. Normal exercise Myoview study. Electronically signed by : Lei Tejeda MD 02/01/2022 19:02:48
--- NOTE | 2022-02-01 09:21 | HMH.ITSHM ---
Current Home Medications as stated by this patient Marti Hutson or field service representative. []LISINOPRIL LIRAGLUTIDE LEVOTHYROXINE ESTRADIOL BUDESONIDE ATORVASTATIN OMEPRAZOLE
== END ==
PROVIDERS: PCP Internal Medicine; Visit Provider Physician Assistant
DX: Z01.810 Encounter for preprocedural cardiovascular examination (principal); R94.31 Abnormal electrocardiogram [ECG] [EKG]
CPT/HCPCS: 78452; 93017; 93306; A9502

== ENCOUNTER 2022-05-12 12:13 | Emergency (ER) | payer BC, SELFPAY ==
[2022-05-12 12:14] VITALS: BP 110/78; PULSE 83; RESP 18; TEMP 36.6; O2SAT 98; BMI 29.2
--- NOTE | 2022-05-12 12:34 | HMH.EDUTC ---
[facility] [place] Disposition Clinical Impression: Viral syndrome, Status post gastric bypass for obesity, Exposure to COVID-19 virus Disposition: Home, Self-Care Condition on Discharge: Good Instructions: Viral Gastroenteritis, DI for Viral Gastroenteritis -- Adult, DI for Viral Syndrome Additional Instructions: Drink plenty of fluids. Take tylenol or ibuprofen for pain or fever. Take the medications as directed. Follow up with your regular doctor. GO TO THE ER FOR ANY WORSENING SYMPTOMS Quarantine until you know the results of your covid-19 test. Notify your school or workplace of your results and follow their instructions regarding return to work/school. Prescriptions: Promethazine HCl [Phenergan 25mg tab] 25 mg PO Q6H PRN #20 tab PRN Reason: Nausea And Vomiting Transmission Status: Pending to [facility] Referrals: Romulo Hudson MD [Primary Care Provider] - Time of Disposition: 13:38 Medical Decision Making - Medical Records Medical records reviewed: No: I reviewed the patient's medical records. - Rodríguez Inquiry Pt receiving controlled substance: No Vital Signs: 05/12/22 12:14 Temperature 97.9 F Temperature Source Oral Pulse Rate [Radial] 83 Respiratory Rate 18 Blood Pressure [Right Arm] 110/78 Blood Pressure Mean [Right Arm] 88 Blood Pressure Source [Right Arm] Automatic Cuff Blood Pressure Position [Right Arm] Sitting 02 Sat by Pulse Oximetry 98 - Lab Data Lab Results 05/12/22 12:50: WBC 11.3 H, RBC 4.66, Hgb 14.7, Hct 43.5, MCV 93.4, MCH 31.6 H, MCHC 33.9, RDW 13.2, Plt Count 267, MPV 7.7, Neut % (Auto) 83.4 H, Lymph % (Auto) 11.9, Kimball % (Auto) 3.4, Eos % (Auto) 0.7, Baso % (Auto) 0.7, Neut # (Auto) 9.4 H, Lymph # (Auto) 1.3, Kimball # (Auto) 0.4, Eos # (Auto) 0.1, Baso # (Auto) 0.1 05/12/22 12:50: Sodium 136, Potassium 3.7, Chloride 98, Carbon Dioxide 28, Anion Gap 13.7, BUN 14, Creatinine 0.80, Estimated Creat Clear 106, Estimated GFR 77, Est GFR ( Amer) 93, Glucose 137 H, Calcium 10.1 Result diagrams: 05/12/22 12:50 05/12/22 12:50 Orders (Tests/Meds): ED MEDICATIONS Generic Name Dose Route Start Last Admin Trade Name Freq PRN Reason Stop Dose Admin Sodium Chloride 500 mls @ 999 mls/hr 05/12/22 12:45 05/12/22 13:02 Sod Chlor 0.9% 1000ml Bag IV 05/12/22 13:15 999 mls/hr .Q31M STUART Administration ORDERS Category Date Time Status Covid-19 Nasal PCR ([facility]) Routine Lab 05/12/22 12:25 Received [facility] [place] HPI - General Stated complaint: GUEVARA, nausea, diarrhea Time Seen by Provider: 05/12/22 12:36 Mode of Arrival: Ambulatory Source of Information: Patient Limitations: No Limitations Description of Symptoms (Recalled from Triage Doc. by RN): pt with headache, n/d since monday HEENT Symptoms (Recalled from RN notes): Yes Resp Symptoms (Recalled from RN notes): No Skin Symptoms (Recalled from RN notes): No MS Symptoms (Recalled from RN notes): No Functional Status (Recalled from RN notes): n/a - History of Present Illness Provider Complaint: She states that for the past 3 days she has had diarrhea, nausea, chills, chest congestion. - Related Data Home Medications Medication Instructions Recorded Confirmed Omeprazole [Omeprazole 40mg 40 mg PO DAILY 09/03/21 02/04/22 Capsule] estradioL [Estradiol] 2 mg PO DAILY 09/03/21 02/04/22 atorvastatin 20 mg tablet 20 mg PO HS 01/17/22 02/04/22 levothyroxine 50 mcg tablet 50 mcg PO DAILY tab 01/17/22 02/04/22 liraglutide 0.6 mg/0.1 mL (18 mg/3 1.8 mg SQ DAILY ml 01/17/22 02/04/22 mL) subcutaneous pen injector lisinopril 20 mg tablet 20 mg PO DAILY 01/17/22 02/04/22 Previous Rx's Medication Instructions Recorded budesonide-formoterol HFA 80 1 inh INHALATION QID PRN 90 Days 01/20/22 mcg-4.5 mcg/actuation aerosol #10.2 g inhaler Promethazine HCl [Phenergan 25mg 25 mg PO Q6H PRN #20 tab 05/12/22 tab] Allergies Allergy/AdvReac Type Severity Reaction Status Zachariah
[2022-05-12 13:15] LABS: Basophils # 0.1 K/mm3 (0-0.2); Basophils % 0.7 % (0.1-2.0); Eosinophils # 0.1 K/mm3 (0.0-0.4); Eosinophils % 0.7 % (0.1-12.0); Hematocrit 43.5 % (37.0-47.0); Hemoglobin 14.7 g/dL (12.2-16.2); Lymphocytes # 1.3 K/mm3 (0.7-4.5); Lymphocytes % 11.9 % (10-50); Mean Corpuscular HGB Conc 33.9 g/dL (31.8-35.4); Mean Corpuscular Hemoglobin 31.6 pg (27.0-31.2); Mean Corpuscular Volume 93.4 fl (81-99); Mean Platelet Volume 7.7 fl (7.4-10.4); Monocytes # 0.4 K/mm3 (0.1-1.0); Monocytes % 3.4 % (1.7-9.3); Neutrophils # 9.4 K/mm3 (1.8-7.8); Neutrophils % 83.4 % (37.0-80.0); Platelet Count 267 K/mm3 (142-424); Red Blood Count 4.66 M/mm3 (4.20-5.40); Red Cell Distribution Width 13.2 % (11.5-17.5); White Blood Count 11.3 K/mm3 (4.8-10.8)
[2022-05-12 13:26] LABS: Chloride 98 mmol/L (98-107); Potassium 3.7 mmoL/L (3.5-5.1); Sodium 136 mmol/L (136-145)
[2022-05-12 13:29] LABS: Blood Urea Nitrogen 14 mg/dl (7-17); Creatinine Clearance Estimated 106 mL/min (50-200); Estimated Glomerular Filt Rate 77 ml/min (>60); GFR (African American) 93 ML/MIN (>60)
[2022-05-12 13:30] LABS: Calcium 10.1 mg/dl (8.4-10.2); Glucose 137 mg/dl (74-100)
[2022-05-12 13:39] LABS: Anion Gap 13.7 mEq/L (5-15); Carbon Dioxide 28 mmol/L (22.0-30.0)
[2022-05-12 13:41] VITALS: BP 106/76; PULSE 85; RESP 18; TEMP 36.7; O2SAT 98
== END 2022-05-12 13:45 | disposition home or self-care (01) ==
PROVIDERS: Emergency Provider Nurse Practitioner Family; PCP Internal Medicine
DX: B34.9 Viral infection, unspecified (principal); R51.9 Headache, unspecified; R11.0 Nausea; R19.7 Diarrhea, unspecified; R09.89 Other specified symptoms and signs involving the circulatory and respiratory systems; Z20.822 Contact with and (suspected) exposure to COVID-19; Z98.84 Bariatric surgery status
CPT/HCPCS: 80048; 85025; 99212; C9803; G0463; U0003; U0005

== ENCOUNTER → 2022-05-16 10:28 | Outpatient (CLI) | payer BC, SELFPAY ==
--- NOTE | 2022-05-16 10:32 | MM_ITS ---
PROCEDURE INFORMATION: Exam: MG Bilateral Screening 3D Mammography Exam date and time: 05/16/2022 10:32 AM Age: 47 years old Clinical indication: Screening examination TECHNIQUE: Imaging protocol: Bilateral Screening tomosynthesis and 2D mammography including computer-aided detection (CAD) when performed. COMPARISON: 1. MG DIG MAMM-SCREEN BORIS 03/15/2019 9:13 AM 2. MG DMSB DIG MAMM-SCREEN BORIS W/CAD 03/22/2017 4:03 PM FINDINGS: MAMMOGRAPHY: Breast composition: There are scattered areas of fibroglandular density. Mass: None. Architectural distortion: None. Calcifications: No suspicious calcifications. Asymmetric density: None. Skin thickening: None. Axillary adenopathy: None. IMPRESSION: No mammographic evidence of malignancy. Annual screening is recommended unless otherwise clinically indicated. ASSESSMENT: BI-RADS Category 1: Negative
== END ==
PROVIDERS: PCP Internal Medicine; Visit Provider Internal Medicine
DX: Z12.31 Encounter for screening mammogram for malignant neoplasm of breast (principal)
CPT/HCPCS: 77063; 77067

== ENCOUNTER → 2022-07-21 09:21 | Outpatient (CLI) | payer BC, SELFPAY ==
[2022-07-21 10:04] LABS: Hemoglobin A1C 5.2 % (4.0-6.0)
[2022-07-21 10:27] LABS: Chloride 99 mmol/L (98-107); Potassium 4.5 mmoL/L (3.5-5.1); Sodium 139 mmol/L (136-145)
[2022-07-21 10:29] LABS: Blood Urea Nitrogen 15 mg/dl (7-17); Estimated Glomerular Filt Rate 107 ml/min (>60); GFR (African American) 130 ML/MIN (>60)
[2022-07-21 10:30] LABS: Alanine Aminotransferase 30 U/L (12-78); Albumin/Globulin Ratio 1.3 (1.1-1.8); Alkaline Phosphatase 73 U/L (38-126); Anion Gap 13.5 mEq/L (5-15); Aspartate Amino Transferase 45 U/L (14-36); Bilirubin,Total 0.6 mg/dl (0.2-1.3); Calcium 9.2 mg/dl (8.4-10.2); Carbon Dioxide 31 mmol/L (22.0-30.0); Chol/HDL Ratio 3.8 (1-3.5); Cholesterol 169 mg/dl (140-200); Globulin 3.1 g/dL (1.3-3.2); Glucose 86 mg/dl (74-100); HDL Cholesterol 45 mg/dl (40-60); Iron 79 ug/dL (37-170); Total Protein,Serum 7.1 g/dl (6.3-8.2); Triglycerides 113 mg/dl (30-150); VLDL Cholesterol 23 mg/dL (0-40)
[2022-07-21 10:41] LABS: Direct LDL Cholesterol 85.76 mg/dL (100-129)
[2022-07-21 11:00] LABS: Thyroid Stimulating Hormone 1.61 uIU/mL (0.465-4.68)
[2022-07-21 11:04] LABS: Ferritin 85.3 ng/ml (6.24-137)
[2022-07-21 11:06] LABS: Hematocrit 41.1 % (37.0-47.0); Hemoglobin 13.3 g/dL (12.2-16.2); Mean Corpuscular HGB Conc 32.5 g/dL (31.8-35.4); Mean Corpuscular Hemoglobin 31.5 pg (27.0-31.2); Mean Corpuscular Volume 97.1 fl (81-99); Platelet Count 323 K/mm3 (142-424); Red Blood Count 4.24 M/mm3 (4.20-5.40); White Blood Count 6.4 K/mm3 (4.8-10.8)
[2022-07-21 11:46] LABS: Folate > 20.00 ng/mL
[2022-07-22 12:44] LABS: Prealbumin 19 mg/dL (12-34)
[2022-07-25 21:10] LABS: Vitamin B1 131.6 nmol/L (66.5-200.0)
[2022-07-27 01:07] LABS: Methylmalonic Acid 191 nmol/L (0-378); Vitamin E Alpha Tocopherol 8.2 mg/L (7.0-25.1); Vitamin E Gamma Tocopherol 1.3 mg/L (0.5-5.5)
== END ==
PROVIDERS: PCP Internal Medicine; Visit Provider Physician Assistant
DX: E11.9 Type 2 diabetes mellitus without complications (principal); I10 Essential (primary) hypertension; Z13.21 Encounter for screening for nutritional disorder; Z98.84 Bariatric surgery status; Z79.84 Long term (current) use of oral hypoglycemic drugs
CPT/HCPCS: 36415; 80053; 80061; 82131; 82306; 82728; 82746; 83036; 83540; 84134; 84425; 84443; 84446; 84590; 85014; 85018; 85048; 85049

== ENCOUNTER → 2022-12-31 10:40 | Outpatient (CLI) | payer BC, SELFPAY ==
[2022-12-31 11:12] LABS: Basophils # 0.1 K/mm3 (0-0.2); Basophils % 1.3 % (0.1-2.0); Eosinophils # 0.1 K/mm3 (0.0-0.4); Eosinophils % 2.3 % (0.1-12.0); Hemoglobin 13.4 g/dL (12.2-16.2); Lymphocytes # 1.3 K/mm3 (0.7-4.5); Lymphocytes % 20.3 % (10-50); Mean Corpuscular HGB Conc 32.7 g/dL (31.8-35.4); Mean Corpuscular Hemoglobin 32.1 pg (27.0-31.2); Mean Corpuscular Volume 98.1 fl (81-99); Monocytes # 0.2 K/mm3 (0.1-1.0); Monocytes % 2.5 % (1.7-9.3); Neutrophils # 4.6 K/mm3 (1.8-7.8); Neutrophils % 73.6 % (37.0-80.0); Platelet Count 310 K/mm3 (142-424); Red Blood Count 4.18 M/mm3 (4.20-5.40); Red Cell Distribution Width 14.1 % (11.5-17.5); White Blood Count 6.2 K/mm3 (4.8-10.8)
[2022-12-31 11:32] LABS: Chloride 103 mmol/L (98-107); Potassium 3.8 mmoL/L (3.5-5.1); Sodium 138 mmol/L (136-145)
[2022-12-31 11:34] LABS: Blood Urea Nitrogen 16 mg/dl (7-17); Estimated Glomerular Filt Rate 90 ml/min (>60); GFR (African American) 109 ML/MIN (>60)
[2022-12-31 11:35] LABS: Alanine Aminotransferase 30 U/L (12-78); Albumin Level 3.8 g/dl (3.5-5.0); Albumin/Globulin Ratio 1.4 (1.1-1.8); Alkaline Phosphatase 59 U/L (38-126); Anion Gap 7.8 mEq/L (5-15); Aspartate Amino Transferase 35 U/L (14-36); Bilirubin,Total 0.7 mg/dl (0.2-1.3); Calcium 8.5 mg/dl (8.4-10.2); Carbon Dioxide 31 mmol/L (22.0-30.0); Cholesterol 146 mg/dl (140-200); Globulin 2.8 g/dL (1.3-3.2); Glucose 80 mg/dl (74-100); HDL Cholesterol 49 mg/dl (40-60); Iron 128 ug/dL (37-170); Total Protein,Serum 6.6 g/dl (6.3-8.2); Triglycerides 156 mg/dl (30-150); VLDL Cholesterol 31 mg/dL (0-40)
[2022-12-31 11:41] LABS: Hemoglobin A1C 4.8 % (4.0-6.0)
[2022-12-31 11:46] LABS: Total Iron Binding Capacity 322 ug/dL (265-497)
[2022-12-31 11:47] LABS: Direct LDL Cholesterol 75.38 mg/dL (100-129)
[2022-12-31 11:51] LABS: 25-OH Vitamin D, Total 51.9 ng/mL (30-100); Free T4 (Free Thyroxine) 0.94 ng/dl (0.78-2.19)
[2022-12-31 12:06] LABS: Thyroid Stimulating Hormone 0.93 uIU/mL (0.465-4.68)
[2022-12-31 12:44] LABS: Folate > 20.00 ng/mL
[2023-01-03 03:44] LABS: Zinc 64 ug/dL (44-115)
[2023-01-03 15:52] LABS: Selenium 178 ug/L (100-340)
[2023-01-04 06:12] LABS: Vitamin B1 138.1 nmol/L (66.5-200.0)
[2023-01-06 13:50] LABS: Methylmalonic Acid 399 nmol/L (0-378)
[2023-01-11 12:14] LABS: Vitamin A 42.8 ug/dL (20.1-62.0)
[2023-01-11 17:21] LABS: Vitamin E Alpha Tocopherol 8.7 mg/L (7.0-25.1); Vitamin E Gamma Tocopherol 1.3 mg/L (0.5-5.5)
== END ==
LOC: LAB 10:40
PROVIDERS: PCP Internal Medicine; Visit Provider Physician Assistant
DX: Z90.3 Acquired absence of stomach [part of] (principal); E66.9 Obesity, unspecified; Z68.36 Body mass index [BMI] 36.0-36.9, adult
CPT/HCPCS: 36415; 80053; 80061; 82131; 82306; 82525; 82728; 82746; 83036; 83540; 83550; 84255; 84425; 84439; 84443; 84446; 84590; 84630; 85025

== ENCOUNTER 2023-02-04 20:10 | Emergency (ER) | payer BC, SELFPAY ==
[2023-02-04 20:11] VITALS: BP 127/89; PULSE 83; RESP 19; TEMP 36.7; O2SAT 99; BMI 24.2
--- NOTE | 2023-02-04 20:13 | PC.NURSE ---
Dr. Stafford at
--- NOTE | 2023-02-04 20:18 | XR_ITS ---
PROCEDURE INFORMATION: Exam: XR Chest Exam date and time: 02/04/2023 8:17 PM Age: 47 years old Clinical indication: Cough and dyspnea; Patient HX: Tightness, congestion, chest discomfort just officer captain. Nonsmoker TECHNIQUE: Imaging protocol: Radiologic exam of the chest. Views: 2 views. COMPARISON: CR XR CHEST 2V 12/14/2021 10:51 AM FINDINGS: Lungs: Unremarkable. No consolidation. Pleural spaces: Unremarkable. No pleural effusion. No pneumothorax. Heart/Mediastinum: Unremarkable. No cardiomegaly. Bones/joints: Unremarkable. IMPRESSION: No acute findings.
--- NOTE | 2023-02-04 20:20 | HMH.EDURI ---
Discharge Plan Disposition Patient Disposition: Home, Self-Care Prescriptions Prescriptions: New benzonatate 200 mg capsule 200 mg PO TID PRN (Reason: cough) Qty: 20 0RF No Action lisinopril 20 mg tablet 20 mg PO DAILY levothyroxine 50 mcg tablet 50 mcg PO DAILY Victoza 2-John 0.6 mg/0.1 mL (18 mg/3 mL) pen injector 1.8 mg SQ DAILY atorvastatin 20 mg tablet 20 mg PO HS budesonide-formoterol [Symbicort] 80-4.5 mcg/actuation HFA aerosol inhaler 1 inh INHALATION QID PRN (Reason: shortness of breath or wheezing) 90 Days Qty: 10.2 2RF promethazine 25 MG tablet 25 mg PO Q6H PRN (Reason: Nausea And Vomiting) Qty: 20 0RF omeprazole 40 MG capsule,delayed release(DR/EC) 40 mg PO DAILY estradiol 2 MG tablet 2 mg PO DAILY Referrals Follow up/Referrals: Romulo Hudson MD [Primary Care Provider] - See instructions Activity Restrictions/Add. Instructions Additional Instructions/Restrictions: Your chest x-ray and rapid tests today are normal. There is no evidence of COVID, strep throat, influenza. I think that you have a viral illness. There are no medications to cure that kind of condition. I have prescribed you some Tessalon Perles which help with the urge of coughing. Please follow-up with your primary care doctor in about 3 days if you do not feel any improvement. Return to the emergency department immediately if you feel worse in any way. Clinical Impressions Clinical Impression: Upper respiratory infection, Viral upper respiratory infection Instructions Patient Instructions: DI for Acute Bronchitis Discharge ED Provider: Catrina Stafford URI/Sore Throat HPI General Chief Complaint: Upper Respiratory Infection Stated Complaint: Sore throat,cough,runny nose,weakness Time Seen by Provider: 02/04/23 20:18 Mode of Arrival: Family Vehicle History of Present Illness Complaint: cough and sore throat Onset (ago): day(s) (2) Able to tolerate fluids by mouth: Yes Related Data Home Medications Medication Instructions Recorded Confirmed estradiol 2 mg tablet 2 mg PO DAILY HORMONE 09/03/21 02/04/22 omeprazole 40 mg capsule,delayed 40 mg PO DAILY GERD 09/03/21 02/04/22 release atorvastatin 20 mg tablet 20 mg PO HS 01/17/22 02/04/22 levothyroxine 50 mcg tablet 50 mcg PO DAILY 01/17/22 02/04/22 liraglutide 0.6 mg/0.1 mL (18 mg/3 1.8 mg SQ DAILY 01/17/22 02/04/22 mL) subcutaneous pen injector (Victoza 2-John) lisinopril 20 mg tablet 20 mg PO DAILY 01/17/22 02/04/22 Previous Rx's Medication Instructions Recorded budesonide-formoterol HFA 80 1 inh inhalation QID PRN shortness 01/20/22 mcg-4.5 mcg/actuation aerosol of breath or wheezing 90 days inhaler (Symbicort) #10.2 grams promethazine 25 mg tablet 25 mg PO Q6H PRN Nausea And 05/12/22 Vomiting #20 tabs benzonatate 200 mg capsule 200 mg PO TID PRN cough #20 caps 02/04/23 Allergies Allergy/AdvReac Type Severity Reaction Status Date / Time medroxyprogesterone Allergy Intermediate I-RASH Verified 02/04/22 11:33 [From PROVERA] hydrocodone Allergy Verified 02/04/22 11:33 ondansetron [From Zofran] Allergy Verified 05/12/22 13:48 ARTIFICIAL SWE[employer]ERS Allergy Mild RASH, Uncoded 02/04/22 11:33 ITCHING PFSH PFSH Disclaimer: The information contained in this section may have been updated after the patient was seen, as this information can be updated by other users. Social History Smoking Status: Never smoker second hand exposure: No alcohol intake: never substance use type: denies use current occupational status: other Travel in the last 8 weeks: None household members: spouse and family housing: house current occupational exposures/hazards: No caffeine: Yes ROS Obtained: Yes All systems reviewed & no additional complaints except as documented Physical Exam General General appearance: alert Head Head exam: atraumatic Eye Eye exam: Present normal appea
[2023-02-04 20:27] LABS: Coronavirus 19, PCR Not Detected (NotDetected); Influenza A, PCR Not Detected (NotDetected); Influenza B, PCR Not Detected (NotDetected)
[2023-02-04 20:37] LABS: Strep Scrn Group A (Rapid) Negative (Negative)
[2023-02-04 21:02] VITALS: BP 125/88; PULSE 75; RESP 18; TEMP 36.7; O2SAT 97
== END 2023-02-04 21:04 | disposition home or self-care (01) ==
PROVIDERS: Emergency Provider Emergency Medicine; PCP Internal Medicine
DX: J06.9 Acute upper respiratory infection, unspecified (principal)
CPT/HCPCS: 71046; 87430; 99284; C9803; U0003; U0005

== ENCOUNTER 2023-07-09 11:20 | Emergency (ER) | payer BC, SELFPAY ==
[2023-07-09 11:50] VITALS: BP 121/83; PULSE 56; RESP 19; TEMP 37; O2SAT 99; BMI 25.2
--- NOTE | 2023-07-09 12:18 | EXP.UTC ---
Discharge Plan Disposition Patient Disposition: Home, Self-Care Condition: Good Prescriptions Prescriptions: New benzonatate 100 mg capsule 100 mg PO TID PRN (Reason: cough) Qty: 30 0RF guaifenesin [Mucinex] 600 mg tablet extended release 12hr 600 mg PO BID PRN (Reason: cough) Qty: 20 0RF azithromycin [Zithromax Z-John] 250 mg tablet See Rx Instructions .ROUTE .COMPLEX 5 Days Qty: 6 0RF Rx Instructions: For 250 mg dose pack: take 500 mg today (day 1), then 250 mg for 4 days (days 2-5) No Action lisinopril 20 mg tablet 20 mg PO DAILY levothyroxine 50 mcg tablet 50 mcg PO DAILY Victoza 2-John 0.6 mg/0.1 mL (18 mg/3 mL) pen injector 1.8 mg SQ DAILY budesonide-formoterol [Symbicort] 80-4.5 mcg/actuation HFA aerosol inhaler 1 inh INHALATION QID PRN (Reason: shortness of breath or wheezing) 90 Days Qty: 10.2 2RF omeprazole 40 MG capsule,delayed release(DR/EC) 40 mg PO DAILY estradiol 2 MG tablet 2 mg PO DAILY Referrals Follow up/Referrals: Romulo Hudson MD [Primary Care Provider] - See instructions Activity Restrictions/Add. Instructions Additional Instructions/Restrictions: Start antibiotic today. Be sure to complete entire prescription even if feeling better Monitor temp. Tylenol every 4 hours as needed and / or ibuprofen every 6 hours as needed ( As long as your primary care physician has told you that it ok to take both. For fever/aches/pains ER if no less than 101 despite Tylenol or Motrin Humidifier/vaporizer or hot steamy shower Mucinex during the day for your cough and cough suppressant only at night. Be sure to drink lots of water. *Tessalon Perles will not cause drowsiness but use at bedtime to help stop cough so that you may get some rest. Follow up IMMEDIATELY for new or worsening of symptoms OR no noticeable improvement over the next 48-72 hours. 911 immediately for any life threatening symptoms such as chest pain or difficulty breathing Clinical Impressions Clinical Impression: Bronchitis Sinusitis Qualifiers: Sinusitis location: unspecified location Chronicity: unspecified Qualified Code(s): J32.9 - Chronic sinusitis, unspecified Instructions Patient Instructions: DI for Sinusitis, Sinusitis, Acute Bronchitis Discharge ED Provider: Mary Valera [facility] General Stated complaint: chest congestion, cough, sore throat Mode of Arrival: Ambulatory Source of Information: Patient Limitations: No Limitations Time Seen by Provider: 07/09/23 12:24 Description of Symptoms (Recalled from Triage Doc. by RN): scratchy throat, cough, and chest congestion HEENT Symptoms (Recalled from RN notes): Yes Resp Symptoms (Recalled from RN notes): No Skin Symptoms (Recalled from RN notes): No MS Symptoms (Recalled from RN notes): No Functional Status (Recalled from RN notes): n/a History of Present Illness Provider Complaint: Patient states that she has been having sinus congsetion, cough, sore scratchy throat and feels like it is trying to move into her chest States that at times she will cough up some mucous so today when she wasnt feeling any better she came in Related Data Home Medications Medication Instructions Recorded Confirmed estradiol 2 mg tablet 2 mg PO DAILY HORMONE 09/03/21 07/09/23 omeprazole 40 mg capsule,delayed 40 mg PO DAILY GERD 09/03/21 02/04/22 release levothyroxine 50 mcg tablet 50 mcg PO DAILY thyroid 01/17/22 07/09/23 liraglutide 0.6 mg/0.1 mL (18 mg/3 1.8 mg SQ DAILY 01/17/22 02/04/22 mL) subcutaneous pen injector (Victoza 2-John) lisinopril 20 mg tablet 20 mg PO DAILY 01/17/22 02/04/22 Previous Rx's Medication Instructions Recorded budesonide-formoterol HFA 80 1 inh inhalation QID PRN shortness 01/20/22 mcg-4.5 mcg/actuation aerosol of breath or wheezing 90 days inhaler (Symbicort) #10.2 grams azithromycin 250 mg tablet See Rx Instructions PO .COMPLEX
[2023-07-09 12:39] VITALS: BP 121/83; PULSE 56; RESP 18; TEMP 37; O2SAT 99
== END 2023-07-09 12:39 | disposition home or self-care (01) ==
PROVIDERS: Emergency Provider Nurse Practitioner; PCP Internal Medicine
DX: J01.90 Acute sinusitis, unspecified (principal); R05.9 Cough, unspecified
CPT/HCPCS: 99212; 99214; G0463

== ENCOUNTER → 2023-07-11 12:18 | Outpatient (CLI) | payer BC, SELFPAY ==
[2023-07-11 13:54] LABS: Hemoglobin A1C 4.9 % (4.0-6.0)
[2023-07-11 14:12] LABS: Free T4 (Free Thyroxine) 1.14 ng/dl (0.78-2.19)
[2023-07-11 14:25] LABS: Thyroid Stimulating Hormone 0.68 uIU/mL (0.465-4.68)
== END ==
PROVIDERS: PCP Internal Medicine; Visit Provider Internal Medicine
DX: E03.9 Hypothyroidism, unspecified (principal); E11.9 Type 2 diabetes mellitus without complications; I10 Essential (primary) hypertension
CPT/HCPCS: 83036; 84439; 84443

== ENCOUNTER → 2023-07-31 09:53 | Outpatient (CLI) | payer BC, SELFPAY ==
--- NOTE | 2023-07-31 09:56 | MM_ITS ---
PROCEDURE INFORMATION: Exam: MG Bilateral Screening 3D Mammography Exam date and time: 07/31/2023 9:49 AM Age: 48 years old Clinical indication: Screening examination. Maternal aunt and maternal cousins had breast cancer. TECHNIQUE: Imaging protocol: Bilateral Screening tomosynthesis and 2D mammography including computer-aided detection (CAD) when performed. COMPARISON: 1. MG MM DIG SCREENING MAMM BI W/CAD 05/16/2022 10:32 AM 2. MG DIG MAMM-SCREEN BORIS 03/15/2019 9:13 AM 3. MG DMSB DIG MAMM-SCREEN BORIS W/CAD 03/22/2017 4:03 PM FINDINGS: MAMMOGRAPHY: Breast composition: There are scattered areas of fibroglandular density. Mass: None. Architectural distortion: None. Calcifications: No suspicious calcifications. Asymmetric density: No developing asymmetry. Skin thickening: None. Axillary adenopathy: None. IMPRESSION: No mammographic evidence of malignancy. Annual screening is recommended unless otherwise clinically indicated. ASSESSMENT: BI-RADS Category 1: Negative
== END ==
PROVIDERS: PCP Internal Medicine; Visit Provider Internal Medicine
DX: Z12.31 Encounter for screening mammogram for malignant neoplasm of breast (principal)
CPT/HCPCS: 77063; 77067

== ENCOUNTER → 2023-09-27 17:36 | Outpatient (CLI) | payer BC, SELFPAY | PROVIDERS: PCP Internal Medicine; Visit Provider Physician Assistant | DX: R79.0 Abnormal level of blood mineral (principal) | CPT/HCPCS: 36415; 82525 ==

== ENCOUNTER 2024-05-03 13:22 | Outpatient (CLI) | payer BC, SELFPAY | END 2024-05-03 23:59 | disposition home or self-care (01) | LOC: LAB 13:23 | PROVIDERS: PCP Internal Medicine; Visit Provider Physician Assistant | DX: R79.0 Abnormal level of blood mineral (principal) | CPT/HCPCS: 36415; 82525 ==

== ENCOUNTER 2024-08-01 09:53 | Outpatient (CLI) | payer BC, SELFPAY ==
--- NOTE | 2024-08-01 09:53 | MM_ITS ---
PROCEDURE INFORMATION: Exam: MG Bilateral Screening 3D Mammography Exam date and time: 08/01/2024 9:46 AM Age: 49 years old Clinical indication: Screening examination TECHNIQUE: Imaging protocol: Bilateral Screening tomosynthesis and 2D mammography including computer-aided detection (CAD) when performed. COMPARISON: 1. MG MM DIG SCREENING MAMM BI W/CAD 07/31/2023 9:49 AM 2. MG MM DIG SCREENING MAMM BI W/CAD 05/16/2022 10:32 AM FINDINGS: MAMMOGRAPHY: Breast composition: There are scattered areas of fibroglandular density. Mass: None. Architectural distortion: None. Calcifications: No suspicious calcifications. Asymmetric density: None. Skin thickening: None. Axillary adenopathy: None. IMPRESSION: No mammographic evidence of malignancy. Annual screening is recommended unless otherwise clinically indicated. ASSESSMENT: BI-RADS Category 1: Negative.
== END 2024-08-01 23:59 | disposition home or self-care (01) ==
LOC: RAD 09:53
PROVIDERS: PCP Internal Medicine; Visit Provider Internal Medicine
DX: Z12.31 Encounter for screening mammogram for malignant neoplasm of breast (principal)
CPT/HCPCS: 77063; 77067

== ENCOUNTER 2024-11-28 15:46 | Outpatient (CLI) | payer BC, SELFPAY ==
[2024-11-28 15:54] LABS: Basophils % 0.6 % (0.1-2.0); Eosinophils # 0.1 K/mm3 (0.0-0.4); Eosinophils % 1.4 % (0.1-12.0); Hematocrit 42.9 % (37.0-47.0); Hemoglobin 14.3 g/dL (12.2-16.2); Lymphocytes # 0.6 K/mm3 (0.7-4.5); Lymphocytes % 7.9 % (10-50); Mean Corpuscular HGB Conc 33.3 g/dL (31.8-35.4); Mean Corpuscular Hemoglobin 32.1 pg (27.0-31.2); Mean Corpuscular Volume 96.4 fl (81-99); Mean Platelet Volume 10.5 fl (7.4-10.4); Monocytes # 0.3 K/mm3 (0.1-1.0); Monocytes % 4.4 % (1.7-9.3); Neutrophils # 6.1 K/mm3 (1.8-7.8); Neutrophils % 85.6 % (37.0-80.0); Platelet Count 270 K/mm3 (142-424); Red Blood Count 4.45 M/mm3 (4.20-5.40); Red Cell Distribution Width 12.3 % (11.5-17.5); White Blood Count 7.1 K/mm3 (4.8-10.8)
[2024-11-28 16:18] LABS: Albumin Level 4.4 g/dl (3.5-5.0); Chloride 98 mmol/L (98-107); Sodium 136 mmol/L (136-145)
[2024-11-28 16:21] LABS: Alanine Aminotransferase 29 U/L (12-78); Albumin/Globulin Ratio 1.5 (1.1-1.8); Alkaline Phosphatase 80 U/L (38-126); Aspartate Amino Transferase 40 U/L (14-36); Bilirubin,Total 0.9 mg/dl (0.2-1.3); Blood Urea Nitrogen 16 mg/dl (7-17); Calcium 9.3 mg/dl (8.4-10.2); Carbon Dioxide 31 mmol/L (22.0-30.0); Chol/HDL Ratio 2.4 (1-3.5); Cholesterol 196 mg/dl (140-200); Estimated Glomerular Filt Rate 106 ml/min (>60); GFR (African American) 129 ML/MIN (>60); Globulin 2.9 g/dL (1.3-3.2); Glucose 62 mg/dl (74-100); HDL Cholesterol 82 mg/dl (40-60); Total Protein,Serum 7.3 g/dl (6.3-8.2); Triglycerides 131 mg/dl (30-150); VLDL Cholesterol 26 mg/dL (0-40)
[2024-11-28 16:51] LABS: Thyroid Stimulating Hormone 0.98 uIU/mL (0.465-4.68)
[2024-11-28 17:03] LABS: Hemoglobin A1C 4.9 % (4.0-6.0)
[2024-11-28 17:22] LABS: Vitamin B12 496 pg/mL (239-931)
[2024-12-02 18:25] LABS: 1,25 Dihydroxy Vitamin D 127 pg/mL (.); 1,25-Dihydroxy, Vitamin D-2 <10 pg/mL (.); 1,25-Dihydroxy, Vitamin D-3 127 pg/mL (.)
== END 2024-11-28 23:59 | disposition home or self-care (01) ==
LOC: LAB.DROPOF 15:46
PROVIDERS: PCP Internal Medicine; Visit Provider Internal Medicine
DX: E78.5 Hyperlipidemia, unspecified (principal); R53.83 Other fatigue; E03.9 Hypothyroidism, unspecified; J02.9 Acute pharyngitis, unspecified; I10 Essential (primary) hypertension; E11.9 Type 2 diabetes mellitus without complications; Z98.84 Bariatric surgery status
CPT/HCPCS: 80053; 80061; 82533; 82607; 82652; 83036; 84443; 85025

== ENCOUNTER 2024-12-01 09:27 | Emergency (ER) | payer BC, SELFPAY ==
[2024-12-01 10:39] VITALS: BP 118/89; PULSE 77; RESP 18; TEMP 36.8; O2SAT 98; BMI 25.6
--- NOTE | 2024-12-01 10:45 | ED_ITS ---
Discharge Plan Disposition Patient Disposition: Home, Self-Care Condition: Good Prescriptions Prescriptions: New azithromycin [Zithromax] 250 mg tablet 250 mg PO UD DOSE PK Qty: 6 0RF Rx Instructions: Take two (2) tablets today, then one (1) tablet days #2 thru #5 benzonatate 100 mg capsule 100 mg PO TIDP PRN (Reason: Cough) Qty: 30 0RF Stahist AD 25-60 mg tablet 1 tab PO Q8HP PRN (Reason: congestion) Qty: 20 0RF No Action levothyroxine 50 mcg tablet 50 mcg PO DAILY triamcinolone acetonide 0.1 % cream 1 applic topical TID PRN (Reason: rash) Qty: 80 1RF phentermine 37.5 mg tablet 37.5 mg PO DAILY Qty: 30 0RF Rx Instructions: Take one half a tablet in the morning and one half a tablet in early afternoon estradiol 2 mg tablet See Rx Instructions .ROUTE .COMPLEX Qty: 90 1RF Dose Instruction: TAKE ONE TABLET BY MOUTH EVERY DAY Rx Instructions: TAKE ONE TABLET BY MOUTH EVERY DAY Referrals Follow up/Referrals: Romulo Hudson MD [Primary Care Provider] - See instructions Activity Restrictions/Add. Instructions Additional Instructions/Restrictions: Drink plenty of fluids. Take tylenol or ibuprofen for pain or fever. Take the medications as directed. Follow up with your regular doctor. GO TO THE ER FOR ANY WORSENING SYMPTOMS Clinical Impressions Clinical Impression: Sinusitis Qualifiers: Sinusitis location: unspecified location Chronicity: unspecified Qualified Code(s): J32.9 - Chronic sinusitis, unspecified Stand Alone Forms Stand Alone Forms: Work/School Release Instructions Patient Instructions: Sinusitis, DI for Sinusitis Print Language Print Language: Nepali Discharge ED Provider: Fredy Mata [facility] [place] HPI General Stated complaint: sore throat, cough, drainage Mode of Arrival: Ambulatory Source of Information: Patient Time Seen by Provider: 12/01/24 10:45 Description of Symptoms (Recalled from Triage Doc. by RN): CONGESTION, COUGH, SORE THROAT, DRAINAGE HEENT Symptoms (Recalled from RN notes): Yes Resp Symptoms (Recalled from RN notes): Yes Skin Symptoms (Recalled from RN notes): No MS Symptoms (Recalled from RN notes): No Functional Status (Recalled from RN notes): WNL Related Data Home Medications ?Medication ?Instructions ?Recorded ?Confirmed levothyroxine 50 mcg tablet 50 mcg PO DAILY thyroid 01/17/22 12/01/24 Previous Rx's ?Medication ?Instructions ?Recorded triamcinolone acetonide 0.1 % 1 applic topical TID PRN rash #80 05/29/24 topical cream grams estradiol 2 mg tablet See Rx Instructions .Route 08/16/24 .COMPLEX #90 tabs phentermine 37.5 mg tablet 37.5 mg PO DAILY #30 tabs 11/28/24 azithromycin 250 mg tablet 250 mg PO UD DOSE PK #6 tabs 12/01/24 (Zithromax) benzonatate 100 mg capsule 100 mg PO TIDP PRN Cough #30 caps 12/01/24 chlorcyclizine-pseudoephedrine 25 1 tab PO Q8HP PRN congestion #20 12/01/24 mg-60 mg tablet (Stahist AD) tabs Allergies Allergy/AdvReac Type Severity Reaction Status Date / Time medroxyprogesterone (From Allergy Intermediate I-RASH Verified 11/28/24 09:55 PROVERA) hydrocodone Allergy Verified 11/28/24 09:55 ondansetron (From Zofran) Allergy Verified 11/28/24 09:55 [employer] SWE[employer] Allergy Mild RASH, Uncoded 07/29/24 11:30 ITCHING Worker's Comp Is this a Worker's Comp case?: No [facility] Disclaimer: The information contained in this section may have been updated after the patient was seen, as this information can be updated by other users. Social History Smoking Status: Never smoker second hand exposure: No alcohol intake: never substance use type: denies use current occupational status: other Travel in the last 8 weeks: None household members: spouse and family housing: house current occupational exposures/hazards: No caffeine: Yes Have you lived/traveled outside [place] in past 30 days?: No Contact w/someone who lives/traveled outside US past 30 days?: No Exposure to someone with infectious disease in past 14 days?: No Do you have a fever (greater than 100.4 F or 38 C)?: No Have you tested positive for COVID-19: No Exposed to someone with COVID-19 in past 14 days?: No Do you have a sore throat?: Yes Do you have a cough?: Yes Do you have any weakness?: No Do you have any diarrhea?: No Are you experiencing any unusual bleeding?: No Do you have any muscle aches/pain?: No Do you have any abdominal pain?: No Are you experiencing loss of taste or smell?: No ROS Obtained: Yes All systems reviewed & no additional complaints except as documented Constitutional Constitutional: Reports poor appetite Eyes Eyes: Reports system reviewed and no additional complaints, except as documented ENT Ears, Nose, Mouth, and Throat: Reports as per HPI Cardiovascular Cardiovascular: Reports system reviewed and no additional complaints, except as documented and Denies chest pain Respiratory Respiratory: Denies shortness of breath, Reports chest congestion, Reports cough, Denies stridor and Denies wheezing Gastrointestinal Gastrointestingal: Reports system reviewed and no additional complaints, except as documented; Denies abdominal pain, diarrhea or vomiting Musculoskeletal Musculoskeletal: Reports system reviewed and no additional complaints, except as documented and Denies arthralgias Integumentary/Breasts Skin/Breast: Reports system reviewed and no additional complaints, except as documented and Denies rash Neurologic Neurologic: Denies paresthesias Allergic/Immunologic Allergic/Immunologic: Denies wheezing Physical Exam General General appearance: alert and in no apparent distress Eye Eye exam: Present normal appearance, PERRL and EOMI ENT ENT exam: Present mucous membranes moist and normal external ear exam Expanded ENT Exam External ear exam: Present normal external inspection TM/Canal exam: Bilateral TM: erythema and bulging Nose exam: Absent sinus tenderness Nasal speculum exam: Bilateral: normal Mouth exam: Present normal external inspection; Absent drooling Teeth exam: Present normal inspection Throat exam: Present tonsillar erythema and tonsillomegaly Neck Neck exam: Present normal inspection, full ROM and trachea midline; Absent tenderness, lymphadenopathy or thyromegaly Chest Chest inspection: Present normal inspection and symmetric chest wall rise; Absent tenderness or rash Respiratory Respiratory exam: Present normal lung sounds bilaterally; Absent respiratory distress, wheezes, stridor or accessory muscle use Cardiovascular Cardiovascular exam: Present regular rate, normal rhythm and normal heart sounds Abdominal Exam Abdominal exam: Present soft; Absent distention, tenderness, guarding, rebound or rigidity Extremities Exam Extremities exam: Present normal inspection, full ROM and normal capillary refill; Absent tenderness or calf tenderness Back Exam Back exam: Present normal inspection and full ROM; Absent tenderness Neurological Exam Neurological exam: Present alert and oriented X3 Psychiatric Psychiatric exam: Present normal affect and normal mood Skin Skin exam: Present warm, dry, intact and normal color Lymphatic Lymphatic Findings: no adenopathy Medical Decision Making Medical Records Medical records reviewed: No I reviewed the patient's medical records. Screening: Per USPSTF and CDC recommendations, given the prevalence of disease in our region, it is our hospital?s policy to screen for HIV and viral Hepatitis for all patients aged 18 and over and those with ongoing risk factors. Rodríguez Inquiry Pt receiving controlled substance: No Vital Signs: 12/01/24 10:39 Temperature 98.2 F Temperature Source Oral Pulse Rate [Left Radial] 77 Respiratory Rate 18 Blood Pressure [Left Arm] 118/89 Blood Pressure Mean [Left Arm] 98 02 Sat by Pulse Oximetry 98 Lab Data Lab results reviewed: Yes I reviewed the patient's lab results.
[2024-12-01 10:50] LABS: UTC Strep Screen (Rapid) Negative (Negative)
[2024-12-01 10:51] LABS: UTC Influenza A Antigen Negative (Negative); UTC Influenza B Antigen Negative (Negative)
[2024-12-01 11:16] VITALS: BP 118/69; PULSE 77; RESP 18; TEMP 36.8
[2024-12-01 11:49] LABS: Coronavirus 19, PCR Not Detected (NotDetected); Human Rhinovirus Not Detected (NotDetected); Influenza B, PCR Not Detected (NotDetected); Respiratory Syncytial Virus Not Detected (NotDetected)
[2024-12-01 13:20] LABS: Influenza A, PCR Detected (NotDetected)
== END 2024-12-01 11:17 | disposition home or self-care (01) ==
PROVIDERS: Emergency Provider Nurse Practitioner Family; PCP Internal Medicine
DX: J32.9 Chronic sinusitis, unspecified (principal)
CPT/HCPCS: 87631; 87804; 87880; 99212; G0381

== ENCOUNTER 2025-08-07 15:32 | Outpatient (CLI) | payer BC, SELFPAY ==
--- OUTSIDE RECORDS SUMMARY | 2025-08-07 15:35 | XMS_ITS | Data Portability ---
Author Organization [place] - [facility] ADMIN Address [address] [place] [id number] Care Team Providers Care Laundry Folder Name Role Phone NICOLLE RESENDEZ Primary Care Provider [phone] Assessment No assessment recorded. Plan of Treatment Reminders Order Date Submit Date Provider Last Modified By Organization Details Last Modified Time Details Appointments None recorded. Lab zinc, serum or plasma [facility], [address], [address], [place], [address], 4 20:36:21 folate, serum [facility], [address], [address], [place], [address], 4 20:36:16 thiamine, QN, blood [facility], [address], [address], [place], [address], 4 20:36:19 lipid panel, serum [facility], [address], [address], [place], [address], 4 20:36:14 CBC w/ auto diff [address], [address], [place], [address], 4 20:36:11 CMP, serum or plasma [facility], [address], [address], [place], [address], 4 20:36:13 copper, serum or plasma [facility], [address], [address], [place], [address], 4 20:36:20 selenium, quantitat osmar, blood [facility], [address], [address], [place], [address], 4 20:36:23 HbA1c (hemoglob in A1c), blood [facility], [address], [address], [place], [address], 4 20:36:15 iron + TIBC + ferritin, serum [facility], [address], [address], [place], [address], 4 20:36:10 vitamin D, 25-hydrox y, total, serum [facility], [address], [address], [place], [address], 4 20:36:18 vitamin E, serum [facility], [address], [address], [place], [address], 4 20:36:14 vitamin A (retinol) , serum 10/07/2 024 10/07/2 024 [facility], [address], [address], [place], [address], 4 20:36:17 TSH + free T4, serum 024 [facility], [address], [address], [place], [address], 4 20:36:11 prealbumi n, serum 024 [facility], [address], [address], [place], [address], 4 20:36:22 methylmal reena, QN, serum or plasma 024 024 [facility], [address], [address], [place], [address], 4 20:36:20 copper, serum or plasma 024 [facility], [address], [address], [place], [address], 4 03:36:34 vitamin D, 25-hydrox y, total, serum 024 [facility], [address], [address], [place], [address], 4 10:38:34 prealbumi n, serum 024 [facility], [address], [address], [place], [address], 4 03:36:36 thiamine, QN, blood 024 024 [facility], [address], [address], [place], [address], 4 03:36:33 CBC w/ auto diff 024 024 [facility], [address], [address], [place], [address], 4 03:36:27 CMP, serum or plasma 024 024 [facility], [address], [address], [place], [address], 4 10:38:28 selenium, quantitat osmar, blood 024 024 [facility], [address], [address], [place], [address], 4 03:36:37 zinc, serum or plasma 024 024 [facility], [address], [address], [place], [address], 4 03:36:35 HbA1c (hemoglob in A1c), blood 024 [facility], [address], [address], [place], [address], 4 03:36:30 iron + TIBC + ferritin, serum 024 [facility], [address], [address], [place], [address], 4 03:36:26 folate, serum 024 024 [facility], [address], [address], [place], [address], 4 03:36:31 vitamin E, serum 024 024 [facility], [address], [address], [place], [address], 4 03:36:29 vitamin A (retinol) , serum 024 024 [facility], [address], [address], [place], [address], 4 03:36:32 TSH + free T4, serum 024 024 [facility], [address], [address], [place], [address], 4 10:38:26 lipid panel, serum 024 024 [facility], [address], [address], [place], [address], 4 03:36:28 methylmal reena, QN, serum or plasma 024 024 [facility], [address], [address], [place], [address], 4 03:36:33 copper, serum or plasma 023 023 [facility], [address], [address], [place], [address], 3 16:12:55 selenium, quantitat osmar, blood 023 023 [facility], [address], [address], [place], [address], 3 16:12:59 zinc, serum or plasma 023 023 [facility], [address], [address], [place], [address], 3 16:12:56 CBC w/ auto diff 023 023 [facility], [address], [address], [place], [address], 3 16:12:44 CMP, serum or plasma 023 023 [facility], [address], [address], [place], [address], 3 16:12:45 HbA1c (hemoglob in A1c), blood 023 023 [facility], [address], [address], [place], [address], 3 16:12:49 iron + TIBC + ferritin, serum 023 023 [facility], [address], [address], [place], [address], 3 16:12:41 folate, serum 023 023 [facility], [address], [address], [place], [address], 3 16:12:50 vitamin D, 25-hydrox y, total, serum 023 023 [facility], [address], [address], [place], [address], 3 16:12:52 vitamin E, serum 023 023 [facility], [address], [address], [place], [address], 3 16:12:48 vitamin A (retinol) , serum 023 023 [facility], [address], [address], [place], [address], 3 16:12:51 TSH + free T4, serum 023 [facility], [address], [address], [place], [address], 3 16:12:43 prealbumi n, serum [facility], [address], [address], [place], [address], 3 16:12:58 thiamine, QN, blood [facility], [address], [address], [place], [address], 3 16:12:53 methylmal reena, QN, serum or plasma [facility], [address], [address], [place], [address], 3 16:12:54 lipid panel, serum [facility], [address], [address], [place], [address], 3 16:12:46 Referral None recorded. Procedures None recorded. Surgeries None recorded. Imaging None recorded. Medication Orders None recorded. Patient TargetsNo targets recorded. Patient InstructionsNo instructions recorded. Reason for Referral None Reported. Results Created Date Observation Date Name Description Value Unit Range Abnormal Flag Note LastModifiedBy Organization Detail LastModifiedTime 08/04/2008/05/2023 FE+TI BC+FE R iron bind.cap.(TI BC) 383 ug/dL 250-45 0 Not Available [facility] ([facility]) [address] [facility], [place], [address], 08/15/2023 16:12:41 08/04/2008/05/2023 FE+TI BC+FE R UIBC 291 ug/dL 131-42 5 Not Available [facility] ([facility]) [address] [place], [address], 08/15/2023 16:12:41 08/04/2008/05/2023 FE+TI BC+FE R iron 92 ug/dL 27-159 Not Available [facility] ([facility]) [address] [facility], [place], [address], 08/15/2023 16:12:41 08/04/2008/05/2023 FE+TI BC+FE R iron saturation 24 % 15-55 Not Available [facility] ([facility]) [address] [place], [address], 08/15/2023 16:12:41 08/04/2008/05/2023 FE+TI BC+FE R ferritin 79 NG/mL 15-150 Not Available [facility] ([facility]) [address] [place], [address], 08/15/2023 16:12:41 08/04/2008/05/2023 TSH+F REE T4 TSH 1.610 uIU/m L 0.450- 4.500 Not Available [facility] ([facility]) [address] [place], [address], 08/15/2023 16:12:42 08/04/2008/05/2023 TSH+F REE T4 T4,free(dire ct) 1.28 NG/dL 0.82-1 .77 Not Available [facility] ([facility]) [address] [place], [address], 08/15/2023 16:12:42 08/04/2008/05/2023 CBC WITH DIFFE RENTI AL/PL ATELE T WBC 6.2 x10e3 /uL 3.4-10 .8 Not Available [facility] ([facility]) [address] [place], [address], 08/15/2023 16:12:44 08/04/2008/05/2023 CBC WITH DIFFE RENTI AL/PL ATELE T RBC 4.63 x10e6 /uL 3.77-5 .28 Not Available [facility] ([facility]) [address] [place], [address], 08/15/2023 16:12:44 08/04/2008/05/2023 CBC WITH DIFFE RENTI AL/PL ATELE T hemoglobin 15.1 g/dL 11.1-1 5.9 Not Available [facility] ([facility]) [address] [facility], [place], [address], 08/15/2023 16:12:44 08/04/2008/05/2023 CBC WITH DIFFE RENTI AL/PL ATELE T hematocrit 43.7 % 34.0-4 6.6 Not Available [facility] ([facility]) [address] [facility], [place], [address], 08/15/2023 16:12:44 08/04/2008/05/2023 CBC WITH DIFFE RENTI AL/PL ATELE T MCV 94 fL 79-97 Not Available [facility] ([facility]) [address] [place], [address], 08/15/2023 16:12:44 08/04/2008/05/2023 CBC WITH DIFFE RENTI AL/PL ATELE T MCH 32.6 pg 26.6-3 3.0 Not Available [facility] ([facility]) [address] [place], [address], 08/15/2023 16:12:44 08/04/2008/05/2023 CBC WITH DIFFE RENTI AL/PL ATELE T MCHC 34.6 g/dL 31.5-3 5.7 Not Available [facility] ([facility]) [address] [place], [address], 08/15/2023 16:12:44 08/04/2008/05/2023 CBC WITH DIFFE RENTI AL/PL ATELE T RDW 11.8 % 11.7-1 5.4 Not Available [facility] ([facility]) [address] [facility], [place], [address], 08/15/2023 16:12:44 08/04/2008/05/2023 CBC WITH DIFFE RENTI AL/PL ATELE T platelets 274 x10e3 /uL 150-45 0 Not Available [facility] ([facility]) [address] [facility], [place], [address], 08/15/2023 16:12:44 08/04/2008/05/2023 CBC WITH DIFFE RENTI AL/PL ATELE T neutrophils 73 % not estab. Not Available [facility] ([facility]) [address] [facility], [place], [address], 08/15/2023 16:12:44 08/04/2008/05/2023 CBC WITH DIFFE RENTI AL/PL ATELE T lymphs 20 % not estab. Not Available [facility] ([facility]) [address] [facility], [place], [address], 08/15/2023 16:12:44 08/04/2008/05/2023 CBC WITH DIFFE RENTI AL/PL ATELE T monocytes 4 % not estab. Not Available [facility] ([facility]) [address] [facility], [place], [address], 08/15/2023 16:12:44 08/04/2008/05/2023 CBC WITH DIFFE RENTI AL/PL ATELE T eos 2 % not estab. Not Available [facility] ([facility]) [address] [facility], [place], [address], 08/15/2023 16:12:44 08/04/2008/05/2023 CBC WITH DIFFE RENTI AL/PL ATELE T basos 1 % not estab. Not Available [facility] ([facility]) [address] [facility], [place], [address], 08/15/2023 16:12:44 08/04/2008/05/2023 CBC WITH DIFFE RENTI AL/PL ATELE T immature cells COOPERATIVE EDUCATION COORDINATOR Not Available [facility] ([facility]) [address] [place], [address], 08/15/2023 16:12:44 08/04/2008/05/2023 CBC WITH DIFFE RENTI AL/PL ATELE T neutrophils (absolute) 4.5 x10e3 /uL 1.4-7. 0 Not Available [facility] ([facility]) [address] [facility], [place], [address], 08/15/2023 16:12:44 08/04/2008/05/2023 CBC WITH DIFFE RENTI AL/PL ATELE T lymphs (absolute) 1.2 x10e3 /uL 0.7-3. 1 Not Available [facility] ([facility]) [address] [place], [address], 08/15/2023 16:12:44 08/04/2008/05/2023 CBC WITH DIFFE RENTI AL/PL ATELE T monocytes(ab solute) 0.3 x10e3 /uL 0.1-0. 9 Not Available [facility] ([facility]) [address] [place], [address], 08/15/2023 16:12:44 08/04/2008/05/2023 CBC WITH DIFFE RENTI AL/PL ATELE T eos (absolute) 0.2 x10e3 /uL 0.0-0. 4 Not Available [facility] ([facility]) [address] [place], [address], 08/15/2023 16:12:44 08/04/2008/05/2023 CBC WITH DIFFE RENTI AL/PL ATELE T baso (absolute) 0.0 x10e3 /uL 0.0-0. 2 Not Available [facility] ([facility]) [address] [facility], [place], [address], 08/15/2023 16:12:44 08/04/2008/05/2023 CBC WITH DIFFE RENTI AL/PL ATELE T immature granulocytes 0 % not estab. Not Available [facility] ([facility]) [address] [facility], [place], [address], 08/15/2023 16:12:44 08/04/2008/05/2023 CBC WITH DIFFE RENTI AL/PL ATELE T immature grans (abs) 0.0 x10e3 /uL 0.0-0. 1 Not Available [facility] ([facility]) [address] [facility], [place], [address], 08/15/2023 16:12:44 08/04/2008/05/2023 CBC WITH DIFFE RENTI AL/PL ATELE T NRBC COOPERATIVE EDUCATION COORDINATOR Not Available [facility] ([facility]) [address] [facility], [place], [address], 08/15/2023 16:12:44 08/04/2008/05/2023 CBC WITH DIFFE RENTI AL/PL ATELE T hematology comments: COOPERATIVE EDUCATION COORDINATOR Not Available [facility] ([facility]) [address] [facility], [place], [address], 08/15/2023 16:12:44 08/04/2008/05/2023 COMP. METAB OLIC PANEL (14) glucose 96 mg/dL 70-99 Not Available [facility] ([facility]) [address] [facility], [place], [address], 08/15/2023 16:12:45 10/13/20 23 08/05/2023 COMP. METAB OLIC PANEL (14) BUN 21 mg/dL 6-24 Not Available [facility] ([facility]) [address] [facility] [place], [address], 08/15/2023 16:12:45 08/04/20 23 08/05/2023 COMP. METAB OLIC PANEL (14) creatinine 0.81 mg/dL 0.57-1 .00 Not Available [facility] ([facility]) [address] [facility] [place], [address], 08/15/2023 16:12:45 08/04/20 23 08/05/2023 COMP. METAB OLIC PANEL (14) eGFR 89 mL/mi n/1.7 3 >59 Not Available [facility] ([facility]) [address] [facility], [place], [address], 08/15/2023 16:12:45 08/04/20 23 08/05/2023 COMP. METAB OLIC PANEL (14) BUN/creatini ne ratio 26 9-23 above high normal Not Available [facility] ([facility]) [address] [facility], [place], [address], 08/15/2023 16:12:45 08/04/20 23 08/05/2023 COMP. METAB OLIC PANEL (14) sodium 138 mmol/ L 134-14 4 Not Available [facility] ([facility]) [address] [place], [address], 08/15/2023 16:12:45 08/04/2008/05/2023 COMP. METAB OLIC PANEL (14) potassium 4.0 mmol/ L 3.5-5. 2 Not Available [facility] ([facility]) [address] [place], [address], 08/15/2023 16:12:45 08/04/20 23 08/05/2023 COMP. METAB OLIC PANEL (14) chloride 96 mmol/ L 96-106 Not Available [facility] ([facility]) [address] [place] [place], [address], 08/15/2023 16:12:45 08/04/2008/05/2023 COMP. METAB OLIC PANEL (14) carbon dioxide, total 29 mmol/ L 20-29 Not Available [facility] ([facility]) [address] [facility], [place], [address], 08/15/2023 16:12:45 08/04/2008/05/2023 COMP. METAB OLIC PANEL (14) calcium 9.9 mg/dL 8.7-10 .2 Not Available [facility] ([facility]) [address] [facility], [place], [address], 08/15/2023 16:12:45 08/04/2008/05/2023 COMP. METAB OLIC PANEL (14) protein, total 7.7 g/dL 6.0-8. 5 Not Available [facility] ([facility]) [address] [facility], [place], [address], 08/15/2023 16:12:45 08/04/2008/05/2023 COMP. METAB OLIC PANEL (14) albumin 4.6 g/dL 3.9-4. 9 Not Available [facility] ([facility]) [address] [facility] [place], [address], 08/15/2023 16:12:45 08/04/2008/05/2023 COMP. METAB OLIC PANEL (14) globulin, total 3.1 g/dL 1.5-4. 5 Not Available [facility] ([facility]) [address] [facility] [place], [address], 08/15/2023 16:12:45 08/04/2008/05/2023 COMP. METAB OLIC PANEL (14) A/G ratio 1.5 1.2-2. 2 Not Available [facility] ([facility]) [address] [facility] [place], [address], 08/15/2023 16:12:45 08/04/2008/05/2023 COMP. METAB OLIC PANEL (14) bilirubin, total 1.0 mg/dL 0.0-1. 2 Not Available [facility] ([facility]) [address] [place], [address], 08/15/2023 16:12:45 08/04/2008/05/2023 COMP. METAB OLIC PANEL (14) alkaline phosphatase 69 IU/L 44-121 Not Available [facility] ([facility]) [address] [place], [address], 08/15/2023 16:12:45 08/04/2008/05/2023 COMP. METAB OLIC PANEL (14) AST (SGOT) 34 IU/L 0-40 Not Available [facility] ([facility]) [address] [place], [address], 08/15/2023 16:12:45 08/04/2008/05/2023 COMP. METAB OLIC PANEL (14) ALT (SGPT) 28 IU/L 0-32 Not Available [facility] ([facility]) [address] [place], [address], 08/15/2023 16:12:45 08/04/2008/05/2023 LIPID PANEL cholesterol, total 184 mg/dL 100-19 9 Not Available [facility] ([facility]) [address] [place], [address], 08/15/2023 16:12:46 08/04/2008/05/2023 LIPID PANEL triglyceride s 120 mg/dL 0-149 Not Available [facility] ([facility]) [address] [place], [address], 08/15/2023 16:12:46 08/04/2008/05/2023 LIPID PANEL HDL cholesterol 67 mg/dL >39 Not Available [facility] ([facility]) [address] [facility], [place], [address], 08/15/2023 16:12:46 08/04/2008/05/2023 LIPID PANEL VLDL cholesterol ken 21 mg/dL 5-40 Not Available [facility] ([facility]) [address] [facility], [place], [address], 08/15/2023 16:12:46 08/04/2008/05/2023 LIPID PANEL LDL chol calc ([facility]) 96 mg/dL 0-99 Not Available [facility] ([facility]) [address] [facility], [place], [address], 08/15/2023 16:12:46 08/04/2008/05/2023 LIPID PANEL comment: COOPERATIVE EDUCATION COORDINATOR Not Available [facility] ([facility]) [address] [facility], [place], [address], 08/15/2023 16:12:46 08/04/2008/10/2023 VITAM IN E vitamin E(alpha tocopherol) 11.1 mg/L 7.0-25 .1 Not Available [facility] ([facility]) [address] [facility], [place], [address], 08/15/2023 16:12:47 08/04/2008/10/2023 VITAM IN E vitamin E(gamma tocopherol) 1.1 mg/L 0.5-5. 5 Refer ence inter vals for alpha and gamma -toco phero l deter mined from [facility]ami [facility]io n Surve y, 2004- 2005. Indiv idual s with alpha -toco phero l level s less than 5.0 mg/L are consi dered vitam in E defic ient. Not Available [facility] ([facility]) [address] [facility], [place], [address], 08/15/2023 16:12:47 08/04/2008/05/2023 HEMOG LOBIN A1C hemoglobin A1C 5.2 % 4.8-5. 6 Predi abete s: 5.7 - 6.4 Diabe ellie: >6.4 Glyce rashmi contr ol for adult s with diabe ellie: <7.0 Not Available [facility] ([facility]) [address] [facility], [place], [address], 08/15/2023 16:12:49 08/04/2008/05/2023 FOLAT E (FOLI C ACID) , SERUM folate (folic acid), serum >20.0 NG/mL >3.0 A serum folat e italia ntrat ion of less than 3.1 ng/mL is consi dered to repre sent clini ken defic iency . Not Available [facility] ([facility]) [address] [facility], [place], [address], 08/15/2023 16:12:50 08/04/2008/10/2023 VITAM IN A, SERUM vitamin A 54.5 ug/dL 20.1-6 2.0 Refer ence inter vals for vitam in A deter mined from [facility] inter nal studi es. Indiv idual s with vitam in A less than 20 ug/dL are consi dered vitam in A defic ient and those with serum italia ntrat ions less than 10 ug/dL are consi dered sever eric defic ient. This test was devel oped and its perfo rmanc e sharon cteri stics deter mined by [facility]. It has not been clear ed or appro maximo by the Food and Drug Admin istra tion. Not Available [facility] ([facility]) [address] [facility], [place], [address], 08/15/2023 16:12:51 08/04/2008/05/2023 VITAM IN D, 25-HY DROXY vitamin D, 25-hydroxy 82.2 NG/mL 30.0-1 00.0 Vitam in D defic iency has been defin ed by the Insti tute of Medic ine and an Endoc rine Socie ty pract ice guide line as a level of serum 25-OH vitam in D less than 20 ng/mL (1,2) . The Endoc rine Socie ty went on to furth er defin e vitam in D insuf ficie ncy as a level betwe en 21 and 29 ng/mL (2). 1. IOM (Inst itute of Medic ine). 2010. Dieta ry refer ence intak es for calci um and D. Michael capone [place]: [facility], [facility] . 2. Napoleonic [place], [place], Bisch off-F errar i GUEVARA, et al. Evalu ation , treat ment, and preve ntion of vitam in D defic iency : an Endoc rine Socie ty clini ken pract ice guide line. JCEM. 2010; 96(7) :1911 -30. Not Available [facility] ([facility]) [address] [place], [address], 08/15/2023 16:12:52 08/04/2008/08/2023 VITAM IN B1 (THIA MINE) , BLOOD vit. B1, whole blood 163.3 nmol/ L 66.5-2 00.0 Not Available [facility] ([facility]) [address] [place], [address], 08/15/2023 16:12:53 08/04/2008/08/2023 METHY LMALO LULY ACID, SERUM methylmaloni c acid, serum 150 nmol/ L 0-378 Not Available [facility] ([facility]) [address] [place], [address], 08/15/2023 16:12:54 08/04/2008/15/2023 COPPE R, SERUM OR PLASM A copper, serum or plasma 223 ug/dL 80-158 above high normal Detec tion Limit = 5 Not Available [facility] ([facility]) [address] [place], [address], 08/15/2023 16:12:55 08/04/2008/15/2023 ZINC, PLASM A OR SERUM zinc, plasma or serum 83 ug/dL 44-115 Detec tion Limit = 5 Not Available [facility] ([facility]) [address] [facility] [place], [address], 08/15/2023 16:12:56 08/04/2008/05/2023 PREAL BUMIN prealbumin 23 mg/dL 12-34 Not Available [facility] ([facility]) [address] [facility], [place], [address], 08/15/2023 16:12:58 08/04/2008/08/2023 SELEN IUM, BLOOD selenium, blood 215 ug/L 100-34 0 Detec tion Limit = 10 Not Available [facility] ([facility]) [address] [facility], [place], [address], 08/15/2023 16:12:59 03/20/20 24 03/21/2024 FE+TI BC+FE R iron bind.cap.(TI BC) COOPERATIVE EDUCATION COORDINATOR Not Available [facility] ([facility]) [address] [facility], [place], [address], 03/23/2024 03:36:26 03/20/20 24 03/21/2024 FE+TI BC+FE R UIBC COMMEN T ug/dL Pleas e refer to the follo wing speci men for addit ional lab resul ts. 150-2 19-06 65-0 Not Available [facility] ([facility]) [address] [facility], [place], [address], 03/23/2024 03:36:26 03/20/2003/21/2024 FE+TI BC+FE R iron TNP Test not perfo rmed Not Available [facility] ([facility]) [address] [facility], [place], [address], 03/23/2024 03:36:26 03/20/20 24 03/21/2024 FE+TI BC+FE R iron saturation COOPERATIVE EDUCATION COORDINATOR Not Available [facility] ([facility]) [address] [place], [address], 03/23/2024 03:36:26 03/20/20 24 03/21/2024 FE+TI BC+FE R ferritin TNP Test not perfo rmed Not Available [facility] ([facility]) [address] [facility], [place], [place], [address], 03/23/2024 03:36:26 03/20/20 24 03/21/2024 CBC WITH DIFFE RENTI AL/PL ATELE T WBC COMMEN T x10e3 /uL Pleas e refer to the follo wing speci men for addit ional lab resul ts. 150-2 65-0 Not Available [facility] ([facility]) [address] [place], [address], 03/23/2024 03:36:27 03/20/20 24 03/21/2024 CBC WITH DIFFE RENTI AL/PL ATELE T RBC TNP Test not perfo rmed Not Available [facility] ([facility]) [address] [place], [address], 03/23/2024 03:36:27 03/20/20 24 03/21/2024 CBC WITH DIFFE RENTI AL/PL ATELE T hemoglobin TNP Test not perfo rmed Not Available [facility] ([facility]) [address] [place], [address], 03/23/2024 03:36:27 03/20/20 24 03/21/2024 CBC WITH DIFFE RENTI AL/PL ATELE T hematocrit TNP Test not perfo rmed Not Available [facility] ([facility]) [address] [place], [address], 03/23/2024 03:36:27 03/20/20 24 03/21/2024 CBC WITH DIFFE RENTI AL/PL ATELE T MCV COOPERATIVE EDUCATION COORDINATOR Not Available [facility] ([facility]) [address], [place], [address], 03/23/2024 03:36:27 03/20/20 24 03/21/2024 CBC WITH DIFFE RENTI AL/PL ATELE T MCH COOPERATIVE EDUCATION COORDINATOR Not Available [facility] ([facility]) [address] [facility], [place], [address], 03/23/2024 03:36:27 03/20/20 24 03/21/2024 CBC WITH DIFFE RENTI AL/PL ATELE T MCHC COOPERATIVE EDUCATION COORDINATOR Not Available [facility] ([facility]) [address] [facility], [place], [address], 03/23/2024 03:36:27 03/20/20 24 03/21/2024 CBC WITH DIFFE RENTI AL/PL ATELE T RDW COOPERATIVE EDUCATION COORDINATOR Not Available [facility] ([facility]) [address] [facility], [place], [address], 03/23/2024 03:36:27 03/20/20 24 03/21/2024 CBC WITH DIFFE RENTI AL/PL ATELE T platelets TNP Test not perfo rmed Not Available [facility] ([facility]) [address] [facility], [place], [address], 03/23/2024 03:36:27 03/20/20 24 03/21/2024 CBC WITH DIFFE RENTI AL/PL ATELE T neutrophils TNP Test not perfo rmed Not Available [facility] ([facility]) [address] [facility], [place], [address], 03/23/2024 03:36:27 03/20/20 24 03/21/2024 CBC WITH DIFFE RENTI AL/PL ATELE T lymphs TNP Test not perfo rmed Not Available [facility] ([facility]) [address] [facility], [place], [address], 03/23/2024 03:36:27 03/20/20 24 03/21/2024 CBC WITH DIFFE RENTI AL/PL ATELE T monocytes TNP Test not perfo rmed Not Available [facility] ([facility]) [address] [place], [address], 03/23/2024 03:36:27 03/20/20 24 03/21/2024 CBC WITH DIFFE RENTI AL/PL ATELE T eos TNP Test not perfo rmed Not Available [facility] ([facility]) [address] [place], [address], 03/23/2024 03:36:27 03/20/20 24 03/21/2024 CBC WITH DIFFE RENTI AL/PL ATELE T basos COOPERATIVE EDUCATION COORDINATOR Not Available [facility] ([facility]) [address] [place], [address], 03/23/2024 03:36:27 03/20/20 24 03/21/2024 CBC WITH DIFFE RENTI AL/PL ATELE T immature cells COOPERATIVE EDUCATION COORDINATOR Not Available [facility] ([facility]) [address] [place], [address], 03/23/2024 03:36:27 03/20/20 24 03/21/2024 CBC WITH DIFFE RENTI AL/PL ATELE T neutrophils (absolute) COOPERATIVE EDUCATION COORDINATOR Not Available [facility] ([facility]) [address] [place], [address], 03/23/2024 03:36:27 03/20/20 24 03/21/2024 CBC WITH DIFFE RENTI AL/PL ATELE T lymphs (absolute) TNP Test not perfo rmed Not Available [facility] ([facility]) [address] [place], [address], 03/23/2024 03:36:27 03/20/20 24 03/21/2024 CBC WITH DIFFE RENTI AL/PL ATELE T monocytes(ab solute) COOPERATIVE EDUCATION COORDINATOR Not Available [facility] ([facility]) [address] [facility], [place], [address], 03/23/2024 03:36:27 03/20/20 24 03/21/2024 CBC WITH DIFFE RENTI AL/PL ATELE T eos (absolute) TNP Test not perfo rmed Not Available [facility] ([facility]) [address] [facility], [place], [address], 03/23/2024 03:36:27 03/20/20 24 03/21/2024 CBC WITH DIFFE RENTI AL/PL ATELE T baso (absolute) TNP Test not perfo rmed Not Available [facility] ([facility]) [address] [facility], [place], [address], 03/23/2024 03:36:27 03/20/20 24 03/21/2024 CBC WITH DIFFE RENTI AL/PL ATELE T immature granulocytes COOPERATIVE EDUCATION COORDINATOR Not Available [facility] ([facility]) [address] [facility], [place], [address], 03/23/2024 03:36:27 03/20/20 24 03/21/2024 CBC WITH DIFFE RENTI AL/PL ATELE T immature grans (abs) COOPERATIVE EDUCATION COORDINATOR Not Available [facility] ([facility]) [address] [facility], [place], [address], 03/23/2024 03:36:27 03/20/20 24 03/21/2024 CBC WITH DIFFE RENTI AL/PL ATELE T NRBC COOPERATIVE EDUCATION COORDINATOR Not Available [facility] ([facility]) [address] [facility], [place], [address], 03/23/2024 03:36:27 03/20/20 24 03/21/2024 CBC WITH DIFFE RENTI AL/PL ATELE T hematology comments: COOPERATIVE EDUCATION COORDINATOR Not Available [facility] ([facility]) [address] [place], [address], 03/23/2024 03:36:27 03/20/20 24 03/21/2024 LIPID PANEL cholesterol, total TNP Test not perfo rmed Not Available [facility] ([facility]) [address] [place], [address], 03/23/2024 03:36:28 03/20/20 24 03/21/2024 LIPID PANEL triglyceride s TNP Test not perfo rmed Not Available [facility] ([facility]) [address] [place], [address], 03/23/2024 03:36:28 03/20/20 24 03/21/2024 LIPID PANEL HDL cholesterol TNP Test not perfo rmed Not Available [facility] ([facility]) [address] [place], [address], 03/23/2024 03:36:28 03/20/20 24 03/21/2024 LIPID PANEL VLDL cholesterol ken COMMEN T mg/dL Unabl e to calcu late resul t since non-n umeri c resul t obtai kaushal for compo nent test. Not Available [facility] ([facility]) [address] [facility], [place], [address], 03/23/2024 03:36:28 03/20/20 24 03/21/2024 LIPID PANEL LDL chol calc ([facility]) COOPERATIVE EDUCATION COORDINATOR Not Available [facility] ([facility]) [address] [facility], [place], [address], 03/23/2024 03:36:28 03/20/20 24 03/21/2024 LIPID PANEL comment: COOPERATIVE EDUCATION COORDINATOR Not Available [facility] ([facility]) [address] [place], [address], 03/23/2024 03:36:28 03/20/20 24 03/21/2024 VITAM IN E vitamin E(alpha tocopherol) COMMEN T mg/L Pleas e refer to the follo wing speci men for addit ional lab resul ts. 150-2 19-06 65-0 Not Available [facility] ([facility]) [address] [facility], [place], [address], 03/23/2024 03:36:29 03/20/20 24 03/21/2024 VITAM IN E vitamin E(gamma tocopherol) COOPERATIVE EDUCATION COORDINATOR Not Available [facility] ([facility]) [address] [facility], [place], [address], 03/23/2024 03:36:29 03/20/20 24 03/21/2024 HEMOG LOBIN A1C hemoglobin A1C COMMEN T % Pleas e refer to the [facility] speci men for addit ional lab resul ts. 150-2 65-0 Predi abete s: 5.7 - 6.4 Diabe ellie: >6.4 Glyce rashmi contr ol for adult s with diabe ellie: <7.0 Not Available [facility] ([facility]) [address] [facility], [place], [address], 03/23/2024 03:36:30 03/20/20 24 03/21/2024 FOLAT E (FOLI C ACID) , SERUM folate (folic acid), serum COMMEN T NG/mL Pleas e refer to the [facility] speci men for addit ional lab resul ts. 150-2 65-0 A serum folat e italia ntrat ion of less than 3.1 ng/mL is consi dered to repre sent clini ken defic iency . Not Available [facility] ([facility]) [address] [facility], [place], [address], 03/23/2024 03:36:31 03/20/20 24 03/21/2024 VITAM IN A, SERUM vitamin A COMMEN T ug/dL Pleas e refer to the [facility] speci men for addit ional lab resul ts. 150-2 65-0 Refer ence inter vals for vitam in A deter mined from [facility] inter nal studi es. Indiv idual s with vitam in A less than 20 ug/dL are consi dered vitam in A defic ient and those with serum italia ntrat ions less than 10 ug/dL are consi dered sever eric defic ient. This test was carlos juares and its perfo rmanc e sharon huari stics deter mined by [facility]. It has not been clear ed or appro maximo by the Food and Drug Admin istra tion. Not Available [facility] ([facility]) [address] [place], [address], 03/23/2024 03:36:32 03/20/20 24 03/23/2024 VITAM IN B1 (THIA MINE) , BLOOD vit. B1, whole blood 184.4 nmol/ L 66.5-2 00.0 Not Available [facility] ([facility]) [address] [place], [address], 03/23/2024 03:36:32 03/20/20 24 03/21/2024 METHY LMALO LULY ACID, SERUM methylmaloni c acid, serum COMMEN T nmol/ L Pleas e refer to the [facility] speci men for addit ional lab resul ts. 150-2 65-0 Not Available [facility] ([facility]) [address] [place], [address], 03/23/2024 03:36:33 03/20/20 24 03/21/2024 COPPE R, SERUM OR PLASM A copper, serum or plasma COMMEN T ug/dL Pleas e refer to the [facility] speci men for addit ional lab resul ts. 150-2 65-0 Detec tion Limit = 5 Not Available [facility] ([facility]) [address] [place], [address], 03/23/2024 03:36:34 03/20/20 24 03/21/2024 ZINC, PLASM A OR SERUM zinc, plasma or serum COMMEN T ug/dL Pleas e refer to the [facility] speci men for addit ional lab resul ts. 150-2 65-0 Detec tion Limit = 5 Not Available [facility] ([facility]) [address] [facility], [place], [address], 03/23/2024 03:36:35 03/20/20 24 03/21/2024 PREAL BUMIN prealbumin COMMEN T mg/dL Pleas e refer to the [facility] speci men for addit ional lab resul ts. 150-2 65-0 Not Available [facility] ([facility]) [address] [facility], [place], [address], 03/23/2024 03:36:36 03/20/20 24 03/21/2024 SELEN IUM, BLOOD selenium, blood COMMEN T ug/L Pleas e refer to the [facility] speci men for addit ional lab resul ts. 150-2 65-0 Detec tion Limit = 10 Not Available [facility] ([facility]) [address] [facility], [place], [address], 03/23/2024 03:36:37 03/20/20 24 03/21/2024 SPECI MEN STATU S REPOR T specimen status report COMMEN T Pleas e refer to the [facility] speci men for addit ional lab resul ts. TEST: 68330 5 Fe+TI BC+Fe r 89448 6 TSH+F ree T4 84330 9 CBC With Diffe renti al/Pl atele t 37148 0 Comp. Metab olic Panel (14) 32540 6 Lipid Panel 38158 0 [place]am [place] E 97727 3 Hemog lobin A1c 64183 4 Folat e (Foli c Acid) , Serum 08812 9 Vitam in A, Serum 35120 0 Vitam in D, 25-Hy droxy 24045 1 Methy lmalo luly Acid, Serum 56841 6 Coppe r, Serum or Plasm a 78321 0 Zinc, Plasm a or Serum 14646 1 Preal bumin 41869 4 Selen ium, Blood 150-2 65-0 Not Available [facility] ([facility]) [address] [facility], [place], [address], 03/23/2024 03:36:38 03/20/20 24 03/21/2024 FE+TI BC+FE R iron bind.cap.(TI BC) 290 ug/dL 250-45 0 Not Available [facility] ([facility]) [address] [place], [address], 03/29/2024 10:38:25 03/20/20 24 03/21/2024 FE+TI BC+FE R UIBC 200 ug/dL 131-42 5 Not Available [facility] ([facility]) [address] [place], [address], 03/29/2024 10:38:25 03/20/20 24 03/21/2024 FE+TI BC+FE R iron 90 ug/dL 27-159 Not Available [facility] ([facility]) [address] [place], [address], 03/29/2024 10:38:25 03/20/20 24 03/21/2024 FE+TI BC+FE R iron saturation 31 % 15-55 Not Available [facility] ([facility]) [address] [place], [address], 03/29/2024 10:38:25 03/20/20 24 03/21/2024 FE+TI BC+FE R ferritin 85 NG/mL 15-150 Not Available [facility] ([facility]) [address] [place], [address], 03/29/2024 10:38:25 03/20/20 24 03/21/2024 TSH+F REE T4 TSH 1.160 uIU/m L 0.450- 4.500 Not Available [facility] ([facility]) [address] [place], [address], 03/29/2024 10:38:26 03/20/20 24 03/21/2024 TSH+F REE T4 T4,free(dire ct) 1.37 NG/dL 0.82-1 .77 Not Available [facility] ([facility]) [address] [place], [address], 03/29/2024 10:38:26 03/20/20 24 03/21/2024 CBC WITH DIFFE RENTI AL/PL ATELE T WBC 7.8 x10e3 /uL 3.4-10 .8 Not Available [facility] ([facility]) [address] [place], [address], 03/29/2024 10:38:27 03/20/20 24 03/21/2024 CBC WITH DIFFE RENTI AL/PL ATELE T RBC 4.14 x10e6 /uL 3.77-5 .28 Not Available [facility] ([facility]) [address] [facility] [place], [address], 03/29/2024 10:38:27 03/20/20 24 03/21/2024 CBC WITH DIFFE RENTI AL/PL ATELE T hemoglobin 13.3 g/dL 11.1-1 5.9 Not Available [facility] ([facility]) [address] [place], [address], 03/29/2024 10:38:27 03/20/20 24 03/21/2024 CBC WITH DIFFE RENTI AL/PL ATELE T hematocrit 40.3 % 34.0-4 6.6 Not Available [facility] ([facility]) [address] [place], [address], 03/29/2024 10:38:27 03/20/20 24 03/21/2024 CBC WITH DIFFE RENTI AL/PL ATELE T MCV 97 fL 79-97 Not Available [facility] ([facility]) [address] [place], [address], 03/29/2024 10:38:27 03/20/20 24 03/21/2024 CBC WITH DIFFE RENTI AL/PL ATELE T MCH 32.1 pg 26.6-3 3.0 Not Available [facility] ([facility]) [address] [facility], [place], [address], 03/29/2024 10:38:27 03/20/20 24 03/21/2024 CBC WITH DIFFE RENTI AL/PL ATELE T MCHC 33.0 g/dL 31.5-3 5.7 Not Available [facility] ([facility]) [address] [facility], [place], [address], 03/29/2024 10:38:27 03/20/20 24 03/21/2024 CBC WITH DIFFE RENTI AL/PL ATELE T RDW 12.4 % 11.7-1 5.4 Not Available [facility] ([facility]) [address] [facility], [place], [address], 03/29/2024 10:38:27 03/20/20 24 03/21/2024 CBC WITH DIFFE RENTI AL/PL ATELE T platelets 260 x10e3 /uL 150-45 0 Not Available [facility] ([facility]) [address] [facility], [place], [address], 03/29/2024 10:38:27 03/20/20 24 03/21/2024 CBC WITH DIFFE RENTI AL/PL ATELE T neutrophils 76 % not estab. Not Available [facility] ([facility]) [address] [facility], [place], [address], 03/29/2024 10:38:27 03/20/20 24 03/21/2024 CBC WITH DIFFE RENTI AL/PL ATELE T lymphs 16 % not estab. Not Available [facility] ([facility]) [address] [facility], [place], [address], 03/29/2024 10:38:27 03/20/20 24 03/21/2024 CBC WITH DIFFE RENTI AL/PL ATELE T monocytes 4 % not estab. Not Available [facility] ([facility]) [address] [facility], [place], [address], 03/29/2024 10:38:27 03/20/20 24 03/21/2024 CBC WITH DIFFE RENTI AL/PL ATELE T eos 3 % not estab. Not Available [facility] ([facility]) [address] [facility], [place], [address], 03/29/2024 10:38:27 03/20/20 24 03/21/2024 CBC WITH DIFFE RENTI AL/PL ATELE T basos 1 % not estab. Not Available [facility] ([facility]) [address] [facility], [place], [address], 03/29/2024 10:38:27 03/20/20 24 03/21/2024 CBC WITH DIFFE RENTI AL/PL ATELE T immature cells COOPERATIVE EDUCATION COORDINATOR Not Available [facility] ([facility]) [address] [facility], [place], [address], 03/29/2024 10:38:27 03/20/20 24 03/21/2024 CBC WITH DIFFE RENTI AL/PL ATELE T neutrophils (absolute) 6.0 x10e3 /uL 1.4-7. 0 Not Available [facility] ([facility]) [address] [facility], [place], [address], 03/29/2024 10:38:27 03/20/20 24 03/21/2024 CBC WITH DIFFE RENTI AL/PL ATELE T lymphs (absolute) 1.3 x10e3 /uL 0.7-3. 1 Not Available [facility] ([facility]) [address] [place], [address], 03/29/2024 10:38:27 03/20/20 24 03/21/2024 CBC WITH DIFFE RENTI AL/PL ATELE T monocytes(ab solute) 0.3 x10e3 /uL 0.1-0. 9 Not Available [facility] ([facility]) [address] [facility], [place], [address], 03/29/2024 10:38:27 03/20/20 24 03/21/2024 CBC WITH DIFFE RENTI AL/PL ATELE T eos (absolute) 0.2 x10e3 /uL 0.0-0. 4 Not Available [facility] ([facility]) [address] [facility], [place], [address], 03/29/2024 10:38:27 03/20/20 24 03/21/2024 CBC WITH DIFFE RENTI AL/PL ATELE T baso (absolute) 0.0 x10e3 /uL 0.0-0. 2 Not Available [facility] ([facility]) [address] [facility], [place], [address], 03/29/2024 10:38:27 03/20/20 24 03/21/2024 CBC WITH DIFFE RENTI AL/PL ATELE T immature granulocytes 0 % not estab. Not Available [facility] ([facility]) [address] [facility], [place], [address], 03/29/2024 10:38:27 03/20/20 24 03/21/2024 CBC WITH DIFFE RENTI AL/PL ATELE T immature grans (abs) 0.0 x10e3 /uL 0.0-0. 1 Not Available [facility] ([facility]) [address] [facility], [place], [address], 03/29/2024 10:38:27 03/20/20 24 03/21/2024 CBC WITH DIFFE RENTI AL/PL ATELE T NRBC COOPERATIVE EDUCATION COORDINATOR Not Available [facility] ([facility]) [address] [place], [address], 03/29/2024 10:38:27 03/20/20 24 03/21/2024 CBC WITH DIFFE RENTI AL/PL ATELE T hematology comments: COOPERATIVE EDUCATION COORDINATOR Not Available [facility] ([facility]) [address] [place], [address], 03/29/2024 10:38:27 03/20/20 24 03/21/2024 COMP. METAB OLIC PANEL (14) glucose 85 mg/dL 70-99 Not Available [facility] ([facility]) [address] [facility], [place], [address], 03/29/2024 10:38:28 03/20/20 24 03/21/2024 COMP. METAB OLIC PANEL (14) BUN 12 mg/dL 6-24 Not Available [facility] ([facility]) [address] [facility] [place], [address], 03/29/2024 10:38:28 03/20/20 24 03/21/2024 COMP. METAB OLIC PANEL (14) creatinine 0.61 mg/dL 0.57-1 .00 Not Available [facility] ([facility]) [address] [facility] [place], [address], 03/29/2024 10:38:28 03/20/20 24 03/21/2024 COMP. METAB OLIC PANEL (14) eGFR 110 mL/mi n/1.7 3 >59 Not Available [facility] ([facility]) [address] [facility], [place], [address], 03/29/2024 10:38:28 03/20/20 24 03/21/2024 COMP. METAB OLIC PANEL (14) BUN/creatini ne ratio 20 9-23 Not Available [facility] ([facility]) [address] [facility] [place], [address], 03/29/2024 10:38:28 03/20/20 24 03/21/2024 COMP. METAB OLIC PANEL (14) sodium 139 mmol/ L 134-14 4 Not Available [facility] ([facility]) [address] [facility] [place], [address], 03/29/2024 10:38:28 03/20/20 24 03/21/2024 COMP. METAB OLIC PANEL (14) potassium 4.2 mmol/ L 3.5-5. 2 Not Available [facility] ([facility]) [address] [facility] [place], [address], 03/29/2024 10:38:28 03/20/20 24 03/21/2024 COMP. METAB OLIC PANEL (14) chloride 102 mmol/ L 96-106 Not Available [facility] ([facility]) [address] [facility] [place], [address], 03/29/2024 10:38:28 03/20/20 24 03/21/2024 COMP. METAB OLIC PANEL (14) carbon dioxide, total 25 mmol/ L 20-29 Not Available [facility] ([facility]) [address] [facility] [place], [address], 03/29/2024 10:38:28 03/20/20 24 03/21/2024 COMP. METAB OLIC PANEL (14) calcium 9.3 mg/dL 8.7-10 .2 Not Available [facility] ([facility]) [address] [place], [address], 03/29/2024 10:38:28 03/20/20 24 03/21/2024 COMP. METAB OLIC PANEL (14) protein, total 6.8 g/dL 6.0-8. 5 Not Available [facility] ([facility]) [address] [place], [address], 03/29/2024 10:38:28 03/20/20 24 03/21/2024 COMP. METAB OLIC PANEL (14) albumin 4.0 g/dL 3.9-4. 9 Not Available [facility] ([facility]) [address] [place], [address], 03/29/2024 10:38:28 03/20/20 24 03/21/2024 COMP. METAB OLIC PANEL (14) globulin, total 2.8 g/dL 1.5-4. 5 Not Available [facility] ([facility]) [address] [facility] [place], [address], 03/29/2024 10:38:28 03/20/20 24 03/21/2024 COMP. METAB OLIC PANEL (14) A/G ratio 1.4 1.2-2. 2 Not Available [facility] ([facility]) [address] [facility] [place], [address], 03/29/2024 10:38:28 03/20/20 24 03/21/2024 COMP. METAB OLIC PANEL (14) bilirubin, total 0.5 mg/dL 0.0-1. 2 Not Available [facility] ([facility]) [address] [facility] [place], [address], 03/29/2024 10:38:28 03/20/20 24 03/21/2024 COMP. METAB OLIC PANEL (14) alkaline phosphatase 71 IU/L 44-121 Not Available [facility] ([facility]) [address] [facility] [place], [address], 03/29/2024 10:38:28 03/20/20 24 03/21/2024 COMP. METAB OLIC PANEL (14) AST (SGOT) 24 IU/L 0-40 Not Available [facility] ([facility]) [address] [facility] [place], [address], 03/29/2024 10:38:28 03/20/20 24 03/21/2024 COMP. METAB OLIC PANEL (14) ALT (SGPT) 23 IU/L 0-32 Not Available [facility] ([facility]) [address] [facility] [place], [address], 03/29/2024 10:38:28 03/20/20 24 03/21/2024 LIPID PANEL cholesterol, total 144 mg/dL 100-19 9 Not Available [facility] ([facility]) [address] [place], [address], 03/29/2024 10:38:29 03/20/20 24 03/21/2024 LIPID PANEL triglyceride s 122 mg/dL 0-149 Not Available [facility] ([facility]) [address] [place], [address], 03/29/2024 10:38:29 03/20/20 24 03/21/2024 LIPID PANEL HDL cholesterol 51 mg/dL >39 Not Available [facility] ([facility]) [address] [place], [address], 03/29/2024 10:38:29 03/20/20 24 03/21/2024 LIPID PANEL VLDL cholesterol ken 22 mg/dL 5-40 Not Available [facility] ([facility]) [address] [facility] [place], [address], 03/29/2024 10:38:29 03/20/20 24 03/21/2024 LIPID PANEL LDL [facility] center) 71 mg/dL 0-99 Not Available [facility] ([facility]) [address] [place], [address], 03/29/2024 10:38:29 03/20/20 24 03/21/2024 LIPID PANEL comment: COOPERATIVE EDUCATION COORDINATOR Not Available [facility] ([facility]) [address] [facility] [place], [address], 03/29/2024 10:38:29 03/20/20 24 03/23/2024 VITAM IN E vitamin E(alpha tocopherol) 8.8 mg/L 7.0-25 .1 Not Available [facility] ([facility]) [address] [facility] [place], [address], 03/29/2024 10:38:30 03/20/20 24 03/23/2024 VITAM IN E vitamin E(gamma tocopherol) 1.2 mg/L 0.5-5. 5 Refer ence inter vals for alpha and gamma -toco phero l deter mined from [facility] and Nutri tion Exami natio n Surve y, 2004- 2005. Indiv idual s with alpha -toco phero l level s less than 5.0 mg/L are consi dered vitam in E defic ient. Not Available [facility] ([facility]) [address] [facility], [place], [address], 03/29/2024 10:38:30 03/20/20 24 03/21/2024 HEMOG LOBIN A1C hemoglobin A1C 5.1 % 4.8-5. 6 Predi abete s: 5.7 - 6.4 Diabe ellie: >6.4 Glyce rashmi contr ol for adult s with diabe ellie: <7.0 Not Available [facility] ([facility]) [address] [facility], [place], [address], 03/29/2024 10:38:31 03/20/20 24 03/21/2024 FOLAT E (FOLI C ACID) , SERUM folate (folic acid), serum >20.0 NG/mL >3.0 A serum folat e italia ntrat ion of less than 3.1 ng/mL is consi dered to repre sent clini ken defic iency . Not Available [facility] ([facility]) [address] [facility], [place], [address], 03/29/2024 10:38:32 03/20/20 24 03/23/2024 VITAM IN A, SERUM vitamin A 47.2 ug/dL 20.1-6 2.0 Refer ence inter vals for vitam in A deter mined from [facility] inter nal studi es. Indiv idual s with vitam in A less than 20 ug/dL are consi dered vitam in A defic ient and those with serum italia ntrat ions less than 10 ug/dL are consi dered sever eric defic ient. This test was devel oped and its perfo rmanc e sharon cteri stics deter mined by [facility]. It has not been clear ed or appro maximo by the Food and Drug Admin istra tion. Not Available [facility] ([facility]) [address] [facility], [place], [address], 03/29/2024 10:38:33 03/20/20 24 03/21/2024 VITAM IN D, 25-HY DROXY vitamin D, 25-hydroxy 63.3 NG/mL 30.0-1 00.0 Vitam in D defic iency has been defin ed by the Insti tute of Medic ine and an Endoc rine Socie ty pract ice guide line as a level of serum 25-OH vitam in D less than 20 ng/mL (1,2) . The Endoc rine Socie ty went on to furth er defin e vitam in D insuf ficie ncy as a level betwe en 21 and 29 ng/mL (2). 1. IOM (Inst itute of Medic ine). 2010. Cecelia ry refer ence chris es for calci um and D. Michael capone [place]: The [facility] Press . 2. Larry nicholas MF, Humera bowling [place], Emelyn off-F errar i GUEVARA, et al. Evalu ation , treat ment, and preve ntion of vitam in D defic iency : an Endoc rine Socie ty clini ekn pract ice guide line. EM. 2010; 96(7) :1911 -30. Not Available [facility] ([facility]) [address] [facility], [place], [address], 03/29/2024 10:38:34 03/20/20 24 03/21/2024 VITAM IN B1 (THIA MINE) , BLOOD vit. B1, whole blood COMMEN T nmol/ L Pleas e refer to the follo wing speci men for addit ional lab resul ts. 150-6 04-11 52-0 Not Available [facility] ([facility]) [address] [facility], [place], [address], 03/29/2024 10:38:35 03/20/20 24 03/25/2024 METHY LMALO LULY ACID, SERUM methylmaloni c acid, serum 220 nmol/ L 0-378 Not Available [facility] ([facility]) [address] [facility], [place], [address], 03/29/2024 10:38:36 03/20/20 24 03/23/2024 COPPE R, SERUM OR PLASM A copper, serum or plasma 196 ug/dL 80-158 above high normal Detec tion Limit = 5 Not Available [facility] ([facility]) [address] [facility], [place], [address], 03/29/2024 10:38:37 03/20/20 24 03/23/2024 ZINC, PLASM A OR SERUM zinc, plasma or serum 84 ug/dL 44-115 Detec tion Limit = 5 Not Available [facility] ([facility]) [address] [facility], [place], [address], 03/29/2024 10:38:38 03/20/20 24 03/21/2024 PREAL BUMIN prealbumin 20 mg/dL 12-34 Not Available [facility] ([facility]) [address] [facility], [place], [address], 03/29/2024 10:38:39 03/20/20 24 03/29/2024 SELEN IUM, BLOOD selenium, blood 108 ug/L 100-34 0 Detec tion Limit = 10 Not Available [facility] ([facility]) [address] [facility], [place], [address], 03/29/2024 10:38:40 03/20/20 24 03/21/2024 SPECI MEN STATU S REPOR T specimen status report COMMEN T Ros e refer to the follo wing speci men for addit ional lab resul ts. TEST: [id number] Vitam in B1 (Thia mine) , Blood 150-6 -20 52-0 Not Available [facility] ([facility]) [address] [facility], [place], [address], 03/29/2024 10:38:41 07/29/2007/30/2024 FE+TI BC+FE R iron bind.cap.(TI BC) 360 ug/dL 250-45 0 normal Not Available [facility] ([facility]) [address] [place], [address], 08/04/2024 20:36:10 07/29/20 24 07/30/2024 FE+TI BC+FE R UIBC 266 ug/dL 131-42 5 normal Not Available [facility] ([facility]) [address] [place], [address], 08/04/2024 20:36:10 07/29/2007/30/2024 FE+TI BC+FE R iron 94 ug/dL 27-159 normal Not Available [facility] ([facility]) [address] [place], [address], 08/04/2024 20:36:10 07/29/20 24 07/30/2024 FE+TI BC+FE R iron saturation 26 % 15-55 normal Not Available [facility] ([facility]) [address] [place], [address], 08/04/2024 20:36:10 07/29/20 24 07/30/2024 FE+TI BC+FE R ferritin 78 NG/mL 15-150 normal Not Available [facility] ([facility]) [address] [place], [address], 08/04/2024 20:36:10 07/29/20 24 07/30/2024 TSH+F REE T4 TSH 0.710 uIU/m L 0.450- 4.500 normal Not Available [facility] ([facility]) [address] [place], [address], 08/04/2024 20:36:11 07/29/20 24 07/30/2024 TSH+F REE T4 T4,free(dire ct) 1.46 NG/dL 0.82-1 .77 normal Not Available [facility] ([facility]) [address] [facility], [place], [address], 08/04/2024 20:36:11 07/29/2007/30/2024 CBC WITH DIFFE RENTI AL/PL ATELE T WBC 7.5 x10e3 /uL 3.4-10 .8 normal Not Available [facility] ([facility]) [address] [facility], [place], [address], 08/04/2024 20:36:11 07/29/2007/30/2024 CBC WITH DIFFE RENTI AL/PL ATELE T RBC 4.52 x10e6 /uL 3.77-5 .28 normal Not Available [facility] ([facility]) [address] [facility], [place], [address], 08/04/2024 20:36:11 07/29/20 24 07/30/2024 CBC WITH DIFFE RENTI AL/PL ATELE T hemoglobin 14.6 g/dL 11.1-1 5.9 normal Not Available [facility] ([facility]) [address] [place], [address], 08/04/2024 20:36:11 07/29/20 24 07/30/2024 CBC WITH DIFFE RENTI AL/PL ATELE T hematocrit 44.2 % 34.0-4 6.6 normal Not Available [facility] ([facility]) [address] [place], [address], 08/04/2024 20:36:11 07/29/20 24 07/30/2024 CBC WITH DIFFE RENTI AL/PL ATELE T MCV 98 fL 79-97 above high normal Not Available [facility] ([facility]) [address] [place], [address], 08/04/2024 20:36:11 07/29/20 24 07/30/2024 CBC WITH DIFFE RENTI AL/PL ATELE T MCH 32.3 pg 26.6-3 3.0 normal Not Available [facility] ([facility]) [address] [facility] [place], [address], 08/04/2024 20:36:11 07/29/20 24 07/30/2024 CBC WITH DIFFE RENTI AL/PL ATELE T MCHC 33.0 g/dL 31.5-3 5.7 normal Not Available [facility] ([facility]) [address] [facility], [place], [address], 08/04/2024 20:36:11 07/29/20 24 07/30/2024 CBC WITH DIFFE RENTI AL/PL ATELE T RDW 12.1 % 11.7-1 5.4 Not Available [facility] ([facility]) [address] [facility], [place], [address], 08/04/2024 20:36:11 07/29/20 24 07/30/2024 CBC WITH DIFFE RENTI AL/PL ATELE T platelets 321 x10e3 /uL 150-45 0 normal Not Available [facility] ([facility]) [address] [facility], [place], [address], 08/04/2024 20:36:11 07/29/20 24 07/30/2024 CBC WITH DIFFE RENTI AL/PL ATELE T neutrophils 79 % not estab. normal Not Available [facility] ([facility]) [address] [facility], [place], [address], 08/04/2024 20:36:11 07/29/20 24 07/30/2024 CBC WITH DIFFE RENTI AL/PL ATELE T lymphs 15 % not estab. normal Not Available [facility] ([facility]) [address] [facility], [place], [address], 08/04/2024 20:36:11 07/29/20 24 07/30/2024 CBC WITH DIFFE RENTI AL/PL ATELE T monocytes 3 % not estab. normal Not Available [facility] ([facility]) [address] [facility], [place], [address], 08/04/2024 20:36:11 07/29/20 24 07/30/2024 CBC WITH DIFFE RENTI AL/PL ATELE T eos 2 % not estab. normal Not Available [facility] ([facility]) [address] [facility], [place], [address], 08/04/2024 20:36:11 07/29/20 24 07/30/2024 CBC WITH DIFFE RENTI AL/PL ATELE T basos 1 % not estab. normal Not Available [facility] ([facility]) [address] [facility], [place], [address], 08/04/2024 20:36:11 07/29/20 24 07/30/2024 CBC WITH DIFFE RENTI AL/PL ATELE T immature cells COOPERATIVE EDUCATION COORDINATOR Not Available [facility] ([facility]) [address] [facility], [place], [address], 08/04/2024 20:36:11 07/29/20 24 07/30/2024 CBC WITH DIFFE RENTI AL/PL ATELE T neutrophils (absolute) 5.9 x10e3 /uL 1.4-7. 0 normal Not Available [facility] ([facility]) [address] [place], [address], 08/04/2024 20:36:11 07/29/20 24 07/30/2024 CBC WITH DIFFE RENTI AL/PL ATELE T lymphs (absolute) 1.1 x10e3 /uL 0.7-3. 1 normal Not Available [facility] ([facility]) [address] [place], [address], 08/04/2024 20:36:11 07/29/20 24 07/30/2024 CBC WITH DIFFE RENTI AL/PL ATELE T monocytes(ab solute) 0.3 x10e3 /uL 0.1-0. 9 normal Not Available [facility] ([facility]) [address] [facility], [place], [address], 08/04/2024 20:36:11 07/29/20 24 07/30/2024 CBC WITH DIFFE RENTI AL/PL ATELE T eos (absolute) 0.1 x10e3 /uL 0.0-0. 4 normal Not Available [facility] ([facility]) [address] [facility], [place], [address], 08/04/2024 20:36:11 07/29/20 24 07/30/2024 CBC WITH DIFFE RENTI AL/PL ATELE T baso (absolute) 0.0 x10e3 /uL 0.0-0. 2 normal Not Available [facility] ([facility]) [address] [facility], [place], [address], 08/04/2024 20:36:11 07/29/20 24 07/30/2024 CBC WITH DIFFE RENTI AL/PL ATELE T immature granulocytes 0 % not estab. Not Available [facility] ([facility]) [address] [facility], [place], [address], 08/04/2024 20:36:11 07/29/20 24 07/30/2024 CBC WITH DIFFE RENTI AL/PL ATELE T immature grans (abs) 0.0 x10e3 /uL 0.0-0. 1 Not Available [facility] ([facility]) [address] [facility], [place], [address], 08/04/2024 20:36:11 07/29/20 24 07/30/2024 CBC WITH DIFFE RENTI AL/PL ATELE T NRBC COOPERATIVE EDUCATION COORDINATOR Not Available [facility] ([facility]) [address] [facility], [place], [address], 08/04/2024 20:36:11 07/29/20 24 07/30/2024 CBC WITH DIFFE RENTI AL/PL ATELE T hematology comments: COOPERATIVE EDUCATION COORDINATOR Not Available [facility] ([facility]) [address] [facility], [place], [address], 08/04/2024 20:36:11 07/29/20 24 07/30/2024 COMP. METAB OLIC PANEL (14) glucose 85 mg/dL 70-99 normal Not Available [facility] ([facility]) [address] [facility], [place], [address], 08/04/2024 20:36:12 07/29/20 24 07/30/2024 COMP. METAB OLIC PANEL (14) BUN 15 mg/dL 6-24 normal Not Available [facility] ([facility]) [address] [facility], [place], [address], 08/04/2024 20:36:12 07/29/20 24 07/30/2024 COMP. METAB OLIC PANEL (14) creatinine 0.83 mg/dL 0.57-1 .00 normal Not Available [facility] ([facility]) [address] [facility], [place], [address], 08/04/2024 20:36:12 07/29/20 24 07/30/2024 COMP. METAB OLIC PANEL (14) eGFR 86 mL/mi n/1.7 3 >59 normal Not Available [facility] ([facility]) [address] [facility], [place], [address], 08/04/2024 20:36:12 07/29/20 24 07/30/2024 COMP. METAB OLIC PANEL (14) BUN/creatini ne ratio 18 9-23 normal Not Available [facility] ([facility]) [address] [facility] [place], [address], 08/04/2024 20:36:12 07/29/20 24 07/30/2024 COMP. METAB OLIC PANEL (14) sodium 138 mmol/ L 134-14 4 normal Not Available [facility] ([facility]) [address] [facility] [place], [address], 08/04/2024 20:36:12 07/29/20 24 07/30/2024 COMP. METAB OLIC PANEL (14) potassium 4.0 mmol/ L 3.5-5. 2 normal Not Available [facility] ([facility]) [address] [facility] [place], [address], 08/04/2024 20:36:12 07/29/20 24 07/30/2024 COMP. METAB OLIC PANEL (14) chloride 98 mmol/ L 96-106 normal Not Available [facility] ([facility]) [address] [facility], [place], [address], 08/04/2024 20:36:12 07/29/20 24 07/30/2024 COMP. METAB OLIC PANEL (14) carbon dioxide, total 26 mmol/ L 20-29 normal Not Available [facility] ([facility]) [address] [facility] [place], [address], 08/04/2024 20:36:12 07/29/20 24 07/30/2024 COMP. METAB OLIC PANEL (14) calcium 9.7 mg/dL 8.7-10 .2 normal Not Available [facility] ([facility]) [address] [facility] [place], [address], 08/04/2024 20:36:12 07/29/20 24 07/30/2024 COMP. METAB OLIC PANEL (14) protein, total 7.5 g/dL 6.0-8. 5 normal Not Available [facility] ([facility]) [address] [facility] [place], [address], 08/04/2024 20:36:12 07/29/20 24 07/30/2024 COMP. METAB OLIC PANEL (14) albumin 4.1 g/dL 3.9-4. 9 normal Not Available [facility] ([facility]) [address] [facility] [place], [address], 08/04/2024 20:36:12 07/29/20 24 07/30/2024 COMP. METAB OLIC PANEL (14) globulin, total 3.4 g/dL 1.5-4. 5 Not Available [facility] ([facility]) [address] [place], [address], 08/04/2024 20:36:12 07/29/20 24 07/30/2024 COMP. METAB OLIC PANEL (14) bilirubin, total 0.8 mg/dL 0.0-1. 2 normal Not Available [facility] ([facility]) [address] [place], [address], 08/04/2024 20:36:12 07/29/20 24 07/30/2024 COMP. METAB OLIC PANEL (14) alkaline phosphatase 75 IU/L 44-121 normal Not Available [facility] ([facility]) [address] [place], [address], 08/04/2024 20:36:12 07/29/20 24 07/30/2024 COMP. METAB OLIC PANEL (14) AST (SGOT) 26 IU/L 0-40 normal Not Available [facility] ([facility]) [address] [place], [address], 08/04/2024 20:36:12 07/29/20 24 07/30/2024 COMP. METAB OLIC PANEL (14) ALT (SGPT) 23 IU/L 0-32 normal Not Available [facility] ([facility]) [address] [place], [address], 08/04/2024 20:36:12 07/29/20 24 07/30/2024 LIPID PANEL cholesterol, total 192 mg/dL 100-19 9 normal Not Available [facility] ([facility]) [address] [place], [address], 08/04/2024 20:36:13 07/29/20 24 07/30/2024 LIPID PANEL triglyceride s 112 mg/dL 0-149 normal Not Available [facility] ([facility]) [address] [place], [address], 08/04/2024 20:36:13 07/29/20 24 07/30/2024 LIPID PANEL HDL cholesterol 72 mg/dL >39 normal Not Available [facility] ([facility]) [address] [facility] [place], [address], 08/04/2024 20:36:13 07/29/20 24 07/30/2024 LIPID PANEL VLDL cholesterol ken 20 mg/dL 5-40 Not Available [facility] ([facility]) [address] [place], [address], 08/04/2024 20:36:13 07/29/20 24 07/30/2024 LIPID PANEL LDL chol calc ([facility]) 100 mg/dL 0-99 above high normal Not Available [facility] ([facility]) [address] [facility] [place], [address], 08/04/2024 20:36:13 07/29/20 24 07/30/2024 LIPID PANEL LDL calc comment: COOPERATIVE EDUCATION COORDINATOR Not Available [facility] ([facility]) [address] [facility] [place], [address], 08/04/2024 20:36:13 07/29/20 24 08/01/2024 VITAM IN E vitamin E(alpha tocopherol) 12.7 mg/L 7.0-25 .1 Not Available [facility] ([facility]) [address] [place], [address], 08/04/2024 20:36:14 07/29/20 24 08/01/2024 VITAM IN E vitamin E(gamma tocopherol) 1.2 mg/L 0.5-5. 5 Refer ence inter vals for alpha and gamma -toco phero l deter mined from Natio nal Healt h and Nutri tion Exami natio n Surve y, 2004- 2005. Indiv idual s with alpha -toco phero l level s less than 5.0 mg/L are consi dered vitam in E defic ient. Not Available [facility] ([facility]) [address] [facility] [place], [address], 08/04/2024 20:36:14 07/29/20 24 07/30/2024 HEMOG LOBIN A1C hemoglobin A1C 5.3 % 4.8-5. 6 normal Predi abete s: 5.7 - 6.4 Diabe ellie: >6.4 Glyce rashmi contr ol for adult s with diabe ellie: <7.0 Not Available [facility] ([facility]) [address] [facility], [place], [address], 08/04/2024 20:36:15 07/29/20 24 07/30/2024 FOLAT E (FOLI C ACID) , SERUM folate (folic acid), serum >20.0 NG/mL >3.0 A serum folat e italia ntrat ion of less than 3.1 ng/mL is consi dered to repre sent clini ken defic iency . Not Available [facility] ([facility]) [address] [facility], [place], [address], 08/04/2024 20:36:16 07/29/20 24 08/01/2024 VITAM IN A, SERUM vitamin A 51.6 ug/dL 20.1-6 2.0 Refer ence inter vals for vitam in A deter mined from [facility] inter nal studi es. Indiv idual s with vitam in A less than 20 ug/dL are consi dered vitam in A defic ient and those with serum italia ntrat ions less than 10 ug/dL are consi dered sever eric defic ient. This test was devel oped and its perfo rmanc e sharon cteri stics deter mined by [employer] [facility]. It has not been clear ed or appro maximo by the Food and Drug Admin istra tion. Not Available [facility] ([facility]) [address] [facility] [place], [address], 08/04/2024 20:36:17 07/29/20 24 07/31/2024 VITAM IN D, 25-HY DROXY vitamin D, 25-hydroxy 143.0 NG/mL 30.0-1 00.0 above high normal Vitam in D defic iency has been defin ed by the Insti tute of Medic ine and an Endoc rine Socie ty pract ice guide line as a level of serum 25-OH vitam in D less than 20 ng/mL (1,2) . The Endoc rine Socie ty went on to furth er defin e vitam in D insuf ficie ncy as a level betwe en 21 and 29 ng/mL (2). 1. IOM (Inst itute of Medic ine). 2009. Dieta ry refer ence chris es for calci um and D. Michael capone [place]: The [facility] . 2. Larry nicholas MF, Humera bowling [place], Emelyn off-F errar i GUEVARA, et al. Evalu ation , treat ment, and preve ntion of vitam in D defic iency : an Endoc rine Socie ty clini ken pract ice guide line. JCEM. 2010; 96(7) :1911 -30. Not Available [facility] ([facility]) [address] [place], [address], 08/04/2024 20:36:18 07/29/20 24 08/01/2024 VITAM IN B1 (THIA MINE) , BLOOD vit. B1, whole blood 198.7 nmol/ L 66.5-2 00.0 Not Available [facility] ([facility]) [address] [place], [address], 08/04/2024 20:36:19 07/29/20 24 08/04/2024 METHY LMALO LULY ACID, SERUM methylmaloni c acid, serum 232 nmol/ L 0-378 Not Available [facility] ([facility]) [address] [place], [address], 08/04/2024 20:36:20 07/29/20 24 07/31/2024 COPPE R, SERUM OR PLASM A copper, serum or plasma 179 ug/dL 80-158 above high normal Detec tion Limit = 5 Not Available [facility] ([facility]) [address] [facility] [place], [address], 08/04/2024 20:36:20 07/29/20 24 07/31/2024 ZINC, PLASM A OR SERUM zinc, plasma or serum 59 ug/dL 44-115 normal Detec tion Limit = 5 Not Available [facility] ([facility]) [address] [facility] [place], [address], 08/04/2024 20:36:21 07/29/20 24 07/30/2024 PREAL BUMIN prealbumin 22 mg/dL 12-34 Not Available [facility] ([facility]) [address] [facility] [place], [address], 08/04/2024 20:36:22 07/29/20 24 07/30/2024 SELEN IUM, BLOOD selenium, blood 156 ug/L 100-34 0 Detec tion Limit = 10 Not Available [facility] ([facility]) [address] [facility] [place], [address], 08/04/2024 20:36:23 Result Notes None recorded. Problems Name Problem SNOMED Code Status Onset Date Resolution Date Notes Provider Name and Address Organization Details Recorded Time Cobalamin deficiency 984470905 Active 20[address] , [place], [address] , [facility] [place] 3 09:24:44 Essential hypertension 18636897 Active [address], [place], [address] , [place] - [facility] [place] 3 09:24:47 Intentional weight loss 078440884 Active [address], [place], [address] , [place] - [facility] [place] 4 10:22:46 Problem Notes None recorded. Procedures Surgical History Date Name Laterality Status Provider Name and Address Organization Details Recorded Time Naldo-en-Y gastrojejunostomy completed Lakeisha Bray [facility] [place] 10/13/2022 10:22:22 EGD completed Lakeisha Bray [facility] [place] 10/13/2022 10:22:26 Partial Hysterectomy completed Bibi cca Prahbu Bray [facility] [place] 10/13/2022 10:22:32 Tubal Ligation completed Lakeisha Bray [facility] [place] 10/13/2022 10:22:40 laparoscopy completed Lakeisha CLAYTON [facility] [place] 10/13/2022 10:22:46 Cholecystectomy completed Lakeisha Bray [facility] [place] 10/13/2022 10:22:53 Imaging Results None recorded. Procedure Notes None recorded. Medical Equipment None Reported. Allergies Allergen ID Allergen Name Allergen Category Reaction Reaction Severity Criticality Documentation Date Start Date Code Code System Note Provider Name and Address Organization Details Recorded Time 40608 Rybelsus medicatio n Not available Not available Not available 10/13/2022 93462 45 RxNorm Lakeisha celeste, BLADIMIR Bray [facility]NT [facility] & [place] 2 10:18:43 29793 metformin medicatio n Not available Not available Not available 10/13/2022 6809 RxNorm Lakeisha Prabhu celeste, BLADIMIR Bray LPNT [facility] & [place] 2 10:18:49 70093 Provera medicatio n Not available Not available Not available 10/13/2022 91218 8 RxNorm Lakeisha Prabhu celeste, BLADIMIR - LPNT [facility] & [place] 2 10:18:55 57425 aspartame food,medi cation Not available Not available Not available 10/13/2022 60769 24 RxNorm Lakeisha Prabhu celeste, BLADIMIR - LPNT [facility] & [place] 2 10:19:01 Medications Name Sig Start Date Stop Date Status Note LastModified by Organization Details LastModified Time amoxicillin 500 mg capsule TAKE TWO CAPSULES BY MOUTH TWICE DAILY -- FINISH ALL MEDICINE -- active Not Available Not Available No t Available fluconazole 100 mg tablet TAKE ONE TABLET BY MOUTH EVERY DAY active Not Available Not Available No t Available lisinopril 20 mg-hydrochl orothiazide 12.5 mg tablet TAKE ONE TABLET BY MOUTH EVERY DAY 10/13 completed Not Available Not Available Not Available azithromyci n 250 mg tablet TAKE 2 TABLETS BY MOUTH ON DAY 1, AND THEN TAKE 1 TABLET BY MOUTH ONCE A DAY ON DAY 2 THROUGH DAY 5 active Not Available Not Available No t Available ibuprofen 800 mg tablet TAKE ONE TABLET BY MOUTH THREE TIMES DAILY NEEDED FOR PAIN --TAKE WITH FOOD-- 10/13 completed Not Available Not Available Not Available fluconazole 150 mg tablet TAKE ONE TABLET BY MOUTH A ONE-TIME DOSE active Not Available Not Available No t Available benzonatate 200 mg capsule TAKE 1 CAPSULE BY MOUTH THREE TIMES DAILY NEEDED FOR COUGH 08/04 completed Not Available Not Available Not Available Nystop 100,000 unit/gram topical powder APPLY TOPICALLY TO THE AFFECTED AREA(S) FOUR TIMES DAILY NEEDED -- FOR EXTERNAL USE ONLY-- active Not Available Not Available No t Available phentermine 37.5 mg tablet TAKE 1/2 TABLET BY MOUTH EVERY MORNING AND TAKE 1/2 TABLET in THE early afternoon . active Not Available Not Available No t Available omeprazole 40 mg capsule,del ayed release TAKE ONE CAPSULE BY MOUTH EVERY DAY IN THE MORNING FOR gerd 01/23 completed Not Available Not Available Not Available triamcinolo ne acetonide 0.1 % topical cream APPLY TOPICALLY TO THE AFFECTED AREA(S) THREE TIMES DAILY NEEDED FOR RASH active Not Available Not Available No t Available Guaiatussin AC 10 mg-100 mg/5 mL oral liquid take 10 ML (2 teaspoons ) BY MOUTH EVERY 4 TO 6 HOURS NEEDED FOR cough MAY CAUSE DROWSINES S 10/13 completed Not Available Not Available Not Available amoxicillin 875 mg tablet TAKE 1 TABLET BY MOUTH EVERY 12 HOURS UNTIL GONE 10/13 completed Not Available Not Available Not Available benzonatate 100 mg capsule TAKE 1 CAPSULE BY MOUTH THREE TIMES DAILY NEEDED FOR COUGH active Not Available Not Available No t Available levothyroxi ne 50 mcg tablet TAKE ONE TABLET BY MOUTH EVERY DAY IN THE MORNING active Not Available Not Available No t Available nystatin 100,000 unit/gram topical cream APPLY TOPICALLY TO THE AFFECTED AREA(S) THREE TIMES DAILY -- FOR EXTERNAL USE ONLY-- active Not Available Not Available No t Available promethazin e 25 mg tablet TAKE ONE TABLET BY MOUTH EVERY 6 HOURS NEEDED FOR NAUSEA AND VOMITING 10/13 completed Not Available Not Available Not Available polymyxin B sulfate 10,000 unit-trimet hoprim 1 mg/mL eye drops PLACE 2 DROPS RIGHT EYE EVERY SIX HOURS FOR 7 DAYS 10/13 completed Not Available Not Available Not Available gabapentin 300 mg capsule TAKE ONE CAPSULE BY MOUTH THREE TIMES DAILY NEEDED MAY CAUSE DROWSINES S 10/13 completed Not Available Not Available Not Available estradiol 2 mg tablet TAKE ONE TABLET BY MOUTH EVERY DAY active Not Available Not Available No t Available lisinopril 5 mg tablet TAKE ONE TABLET BY MOUTH EVERY DAY FOR BLOOD PRESSURE AND kidneys 01/23 completed Not Available Not Available Not Available hydrochloro thiazide 25 mg tablet TAKE 1/2 TO 1 TABLET BY MOUTH ONCE daily active Not Available Not Available No t Available celecoxib 100 mg capsule TAKE ONE CAPSULE BY MOUTH TWICE DAILY FOR 7 DAYS --TAKE WITH FOOD-- 10/13 completed Not Available Not Available Not Available cefdinir 300 mg capsule TAKE ONE CAPSULE BY MOUTH EVERY TWELVE HOURS FOR 10 DAYS -- FINISH ALL MEDICINE -- 03/20 completed Not Available Not Available Not Available fluticasone propionate 50 mcg/actuati on nasal spray,suspe nsion USE ONE SPRAY IN EACH NOSTRIL DAILY 10/13 completed Not Available Not Available Not Available Lexapro 10 mg tablet Take 1 tablet every day by oral route. 03/20 completed Not Available Not Available Not Available escitalopra m 5 mg tablet TAKE ONE TABLET BY MOUTH EVERY DAY FOR ANXIETY 03/20 completed Not Available Not Available Not Available BD Ultra-Fine Mini Pen Needle 31 gauge x 3/16 USE with victoza pen EVERY DAY DIRECTED 08/04 completed Not Available Not Available Not Available magnesium with zinc 08/04 completed Not Available Not Available Not Available calcium active Not Available Not Avail able Not Available biotin 03/20 completed Not Available Not Available Not Available multivitami n active Not Available Not Available Not Available collagen (bovine) 03/20 completed Not Available Not Available Not Available BD Ultra-Fine Short Pen Needle 31 gauge x 5/16 USE EVERY DAY with victoza INJECTION S 08/04 completed Not Available Not Available Not Available Symbicort 80 mcg-4.5 mcg/actuati on HFA aerosol inhaler INHALE 1 PUFF BY MOUTH FOUR TIMES DAILY NEEDED FOR SHORTNESS OF BREATH OR WHEEZING 10/13 completed Not Available Not Available Not Available cholecalcif anabel (vitamin D3) 1,250 mcg (50,000 unit) capsule TAKE ONE CAPSULE BY MOUTH ONCE A WEEK FOR 8 WEEKS 08/04 completed Not Available Not Available Not Available levothyroxi ne 100 mcg capsule Take 1 capsule every day by oral route. 11/17 completed Not Available Not Available Not Available Stahist AD 25 mg-60 mg tablet TAKE 1 TABLET BY MOUTH EVERY 8 HOURS NEEDED FOR CONGESTIO N active Not Available Not Available No t Available Victoza 3-John 0.6 mg/0.1 mL (18 mg/3 mL) subcutaneou s pen injector INJECT 1.8 MG SUBCUTANE OUSLY EVERY DAY 10/13 completed Not Available Not Available Not Available Vitals Date Recorded Body height Body mass index (BMI) Body weight Heart rate Body temperature Systolic And Diastolic Provider Name and Address Organization Details Last Updated DateTime 4 162.56 cm 25.5 kg/m2 67823.4 7 g 62 /min 98.5 [degF] 116/81 mm[Hg] Carolyn Madrigal [facility] & [place] 4 10:49:31 Date Recorded Body height Body mass index (BMI) Body weight Body temperature Heart rate Systolic And Diastolic Provider Name and Address Organization Details Last Updated DateTime 3 162.56 cm 24.6 kg/m2 59525.7 9 g 97.1 [degF] 55 /min 125/82 mm[Hg] Lakeisha Pelletier [facility] & [place] 3 10:03:34 Date Recorded Body height Heart rate Body temperature Body mass index (BMI) Body weight Systolic And Diastolic Provider Name and Address Organization Details Last Updated DateTime 4 162.56 cm 65 /min 98.5 [degF] 24 kg/m2 03124.2 1 g 106/72 mm[Hg] [facility] [place] 4 10:09:44 Date Recorded Body height Heart rate Body temperature Body mass index (BMI) Body weight Systolic And Diastolic Provider Name and Address Organization Details Last Updated DateTime 4 162.56 cm 83 /min 97.3 [degF] 23.7 kg/m2 80365.3 9 g 115/95 mm[Hg] [facility] [place] 4 10:03:56 Date Recorded Body height Body mass index (BMI) Body weight Heart rate Body temperature Heart rate Systolic And Diastolic Systolic And Diastolic Provider Name and Address Organization Details Last Updated DateTime 3 162.56 cm 24.8 kg/m2 47949.3 8 g 64 /min 97.1 [degF] 61 /min 120/90 mm[Hg] 122/86 mm[Hg] [facility] [place] 3 10:26:11 Social History None recorded. Functional Status Question Answer Note LastModified by Organizat ion Details LastModified Time Do you use any illicit or recreational drugs? No [email or web address] Information not available 10/13/2022 What is your level of alcohol consumption? None [email or web address] Information not available 10/13/2022 Mental Status None recorded. Family History Nothing Reported. Medical History Condition Response Diabetes Y Reflux/GERD Y High Cholesterol Y Bronchitis Y Headaches Y Hypertension Y Asthma Y Hypothyroidism Y Gynecological HistoryNo gynecological history recorded. Obstetrics History GPAL:G 0 P 0 0 0 0 Immunizations Vaccine Type Date Status Note Provider Nam e and Address Organization Details Recorded Time influenza, unspecified formulation 08/02/2023 completed Carolyn Madrigla null, BLADIMIR - LPNT [facility] [place] 11/17/2023 10:48:41 influenza, unspecified formulation 07/26/2024 completed Carolyn Godwine null, BLADIMIR - LPNT [facility] & [place] 07/29/2024 10:03:05 Past Encounters Encounter ID Performer Location Encounter Start Date Encounter Closed Date Diagnosis/Indication Diagnosis SNOMED-CT Code Diagnosis ICD10 Code Diagnosis IMO Codes Diagnosis Note [id number] KRISTEN Masters n [facility] [address] [facility] [address] [place] [address] 10/13/2022 10:07:51 10/13/2022 11:23:28 Type 2 diabetes mellitus without complication 336348077 E11.9 improvemen t status post weight loss Hypertensive disorder 38 435909 I10 improvemen t status post weight loss Intentiona l weight loss 214444392 R63.8 6mths s/p RNY History of gastrectomy 906375704 Z90.3 Advised qid intake 50% protein 0228-9288 calories/d y less than 100 carbs/dy. patient met with dietitian for typical six-month dietary follow-up diet/suppo rtLong discussion today of InBody results including PBF(percen t body fat) SMM (skeletal muscle mass) Visceral fat level level BMR Segmental Fat Analysis and Segmental Lean Analysis.E ncouraged pt to take minimal calories as per BMR and to anticipate changes in SMM and PBF values not just total weight.Fol low-up with Repeat SHEKHAR in 3mth suggested Patient is status post bariatric surgery and at increased risk for vitamin deficienci es and malnutriti on. Bariatric vitamin panel ordered today. Patient will be contacted to correct any vitamin deficienci es. [id number] KRISTEN Masters [facility] [address] [place] [address] [address] [place] [address] 01/23/2023 09:44:20 01/23/2023 10:22:53 History of gastrectomy 083888107 Z90.3 Advised qid intake 50% protein 5209-8817 calories/d y less than 100 carbs/dy. patient met with dietitian for typical six-month dietary follow-up diet/suppo rtLong discussion today of InBody results including PBF(percen t body fat) SMM (skeletal muscle mass) Visceral fat level level BMR Segmental Fat Analysis and Segmental Lean Analysis.E ncouraged pt to take minimal calories as per BMR and to anticipate changes in SMM and PBF values not just total weight.Fol low-up with Repeat SHEKHAR in 3mth suggested Patient is status post bariatric surgery and at increased risk for vitamin deficienci es and malnutriti on. Bariatric vitamin panel ordered today. Patient will be contacted to correct any vitamin deficienci es. Intentiona l weight loss 172365615 R63.8 9 mths s/p RNY. Pt is doing well. Followup advised 3/4mth [id number] KRISTEN Masters n [facility] [address] [facility] [address] [place] [address] 08/04/2023 10:07:37 08/04/2023 10:44:30 Cobalamin deficiency 951533849 E53.8 Intentiona l weight loss 795232392 R63.8 s/p RNY. Pt is doing well. Discussed panniculec damaris/skin removal surgery and patient given informatio n for [facility] plastics. History of gastrectomy 325613194 Z90.3 Advised qid intake 50% protein 2177-8264 calories/d y less than 100 carbs/dyLo ng discussion today of InBody results including PBF(percen t body fat) SMM (skeletal muscle mass) Visceral fat level level BMR Segmental Fat Analysis and Segmental Lean Analysis.E ncouraged pt to focus on weight loss maintenanc e at this point. Do not feel she has additional weight needs to be lost. Excess fat mass on in body is likely excess skin.Follo w-up with Repeat SHEKHAR in 3mth suggested Patient is status post bariatric surgery and at increased risk for vitamin deficienci es and malnutriti on. Bariatric vitamin panel ordered today. Patient will be contacted to correct any vitamin deficienci es. Essential hypertension 78887102 I10 [id number] KRISTEN Masters n [facility] [address] [facility] [address] [place] [address] 11/17/2023 10:33:36 11/17/2023 11:46:58 Cobalamin deficiency 166437867 E53.8 Patient is to continue vitamin supplement at. July labs within normal limits. We will recheck full bariatric panel at next office visit February 2024 Essential hypertension 27451557 I10 Intentiona l weight loss 965752488 R63.8 s/p RNY. Pt is doing well. Discussed panniculec damaris/skin removal surgery and patient given informatio n for [facility] plastics. History of gastrectomy 484027724 Z90.3 Advised qid intake 50% protein 1000calori es/dy less than 100 carbs/dyLo ng discussion today of InBody results including PBF(percen t body fat) SMM (skeletal muscle mass) Visceral fat level level BMR Segmental Fat Analysis and Segmental Lean Analysis.E ncouraged pt to take minimal calories as per BMR and to anticipate changes in SMM and PBF values not just total weight.Fol low-up with Repeat SHEKHAR in 3mth suggestedP atient is to continue vitamin supplement ation.Aminata ent is status post bariatric surgery and at increased risk for vitamin deficienci es and malnutriti on. Bariatric vitamin panel will be due next February 2024 Blood heidy er level above reference range 612631219 R79.0 This has been rechecked in September by patient's PCP and was found to be within normal range. We will recheck again in February 2024 [id number] KRISTEN Masters [facility] [address] [facility] [address] [place] [address] 03/20/2024 10:00:49 03/20/2024 13:35:14 Essential hypertension 56771214 I10 Normal blood pressure reading in office today. Patient encouraged to continue management with PCP Cobalamin deficiency 190 850744 E53.8 Patient is to continue vitamin supplement ation. We are rechecking bariatric vitamin panel today and will contact patient to continue to manage deficiency Intentiona l weight loss 084983847 R63.8 s/p RNY. Pt is doing well. Encouraged patient to continue focus on bariatric lifestyle. Advised she continues 12 1300 calories daily 70+ g of protein daily. Patient declines dietitian visit today History of gastrectomy 605764564 Z90.3 Advised qid intake 50% protein 1200 calories/d y less than 100 carbs/dyLo ng discussion today of InBody results including PBF(percen t body fat) SMM (skeletal muscle mass) Visceral fat level level BMR Segmental Fat Analysis and Segmental Lean Analysis.E ncouraged pt to take minimal calories as per BMR and to anticipate changes in SMM and PBF values not just total weight.Fol low-up with Repeat SHEKHAR in 3mth suggested Patient is status post bariatric surgery and at increased risk for vitamin deficienci es and malnutriti on. Bariatric vitamin panel ordered today. Patient will be contacted to correct any vitamin deficienci es. At increas ed risk of nutritional deficit 808494613 Z91.89 [id number] KRISTEN Masters [facility] [address] [place] [address] 07/29/2024 09:45:04 07/29/2024 12:14:40 Essential hypertension 60279672 I10 Normal blood pressure reading in office today. Patient encouraged to continue management with PCP Cobalamin deficiency 190 516921 E53.8 Patient is to continue vitamin supplement ation.We are rechecking bariatric vitamin panel today and will contact patient to continue to manage deficiency Intentiona l weight loss 931842316 R63.8 s/p RNY. Pt is doing well. Encouraged patient to continue focus on bariatric lifestyle. Advised she continues 12 -1300 calories daily 70+ g of protein daily.Aminata ent advised she is access to dietitian as neededEnco uraged continued follow up for lilly rasheed. Patient wishes to be seen January 2025 History of gastrectomy 335783647 Z90.3 Advised qid intake 50% protein 1200 calories/d y less than 100 carbs/dyLo ng discussion today of InBody results including PBF(percen t body fat) SMM (skeletal muscle mass) Visceral fat level level BMR Segmental Fat Analysis and Segmental Lean Analysis.E ncouraged pt to take minimal calories as per BMR and to anticipate changes in SMM and PBF values not just total weight.Fol low-up with Repeat SHEKHAR in 3mth suggested Patient is status post bariatric surgery and at increased risk for vitamin deficienci es and malnutriti on. Bariatric vitamin panel ordered today. Patient will be contacted to correct any vitamin deficienci es. At increas ed risk of nutritional deficit 301707367 Z91.89 Health Concerns Section Related Observation LastModified by Organization Detai ls LastModified Time None Recorded Concern Status LastModified by Organization Details LastModified Time None Recorded Advance Directives Directive None Recorded Payers Insurance Date Sequence Insurance Name Policy Number Policy Iraheta Covered Member ID Iraheta Member ID Guarantor Name 03/18/2025 1 FRANK (PPO) [id number] Marti Hutson [id number] Marti Fooks Notes Date Note Type Note Provider Name and Address Organization Details Recorded Time 01/23/2023 text/html ROS as noted in the HPI Patient presents the office today for routine follow-up status post bariatric surgery- Naldo-en-Y gastric bypass February 2022. Patient doing well. Reports q.i.d. small meal intake. Reports 80-100g/dy protein intake and good hydration. Daily Calories 1000Taking routine vitamins as advised 12/31/22 labs reviewed on patient's phone. elevated MMA o/w normal including B1 ironHeartburn/gastro esophageal reflux: deniesPt Denies : abdominal pain, prandial issues Nausea, Vomiting, bowel or bladder issuesTotal Weight loss 68 lb. Current BMI normal 24.6 with normal% body fat 27.6% visceral fat normal 8Pt is happy with their quality of life after Weight loss Surgery.patient has seen resolution of diabetes and improvement of hypertension. KRISTEN Masters [address] [facility], [place], [address], [facility] [place] & [place] 01/23/2023 10:20:38 08/04/2023 text/html ROS as noted in the [facility] Patient presents the office today for routine follow-up status post bariatric surgery- Naldo-en-Y gastric bypass February 2022.Patient presents the office today for routine follow-up status post bariatric surgery. Patient doing well. Reports q.i.d. small meal intake. Reports >70g/dy protein intake and good hydration. Daily Calories 1000-1200Taking routine vitamins as advised. Hx of B12 deficiencyHeartburn/ gastroesophageal reflux:Pt Denies : abdominal pain, prandial issues Nausea, Vomiting, bowel or bladder issuesWeight maintenance since LOVPt is happy with their quality of life after Weight loss Surgery. January -- Patient doing well. Reports q.i.d. small meal intake. Reports 80-100g/dy protein intake and good hydration. Daily Calories 1000Taking routine vitamins as advised 12/31/22 labs reviewed on patient's phone. elevated MMA o/w normal including B1 ironHeartburn/gastro esophageal reflux: deniesPt Denies : abdominal pain, prandial issues Nausea, Vomiting, bowel or bladder issuesTotal Weight loss 68 lb. Current BMI normal 24.6 with normal% body fat 27.6% visceral fat normal 8Pt is happy with their quality of life after Weight loss Surgery.patient has seen resolution of diabetes and improvement of hypertension. KRISTEN Masters [address], [place], [address], [facility] [place] [facility] [place] 08/04/2023 10:42:28 11/17/2023 text/html ROS as noted in the HPI Patient presents the office today for routine follow-up status post bariatric surgery- Naldo-en-Y gastric bypass February 2022.Patient presents the office today for routine follow-up status post bariatric surgery. Patient doing well. Reports q.i.d. small meal intake. Reports 90g/dy protein intake and good hydration. Daily Calories 1200Taking routine vitamins as advised. Hx of B12 deficiency Elevated copper rechecked in September PCP found to be normal at 157.Heartburn/gastro esophageal reflux: Denies off antacidPt Denies : abdominal pain, prandial issues Nausea, Vomiting, bowel or bladder issuesPatient is a little concerned she has gained 4 lb since last office visit July but overall in body looks good. BMI 25.5 with 30.2% body fat basal metabolic rate 1386 visceral fat 8. Patient requests record of weight over the last year to show stability for pursuit of skin removal surgery with Roberts ChapelyPt is happy with their quality of life after Weight loss Surgery. JUL 2023 - Patient presents the office today for routine follow-up status post bariatric surgery. Patient doing well. Reports q.i.d. small meal intake. Reports >70g/dy protein intake and good hydration. Daily Calories 1000-1200Taking routine vitamins as advised. Hx of B12 deficiencyHeartburn/ gastroesophageal reflux:Pt Denies : abdominal pain, prandial issues Nausea, Vomiting, bowel or bladder issuesWeight maintenance since LOVPt is happy with their quality of life after Weight loss Surgery. January -- Patient doing well. Reports q.i.d. small meal intake. Reports 80-100g/dy protein intake and good hydration. Daily Calories 1000Taking routine vitamins as advised 12/31/22 labs reviewed on patient's phone. elevated MMA o/w normal including B1 ironHeartburn/gastro esophageal reflux: deniesPt Denies : abdominal pain, prandial issues Nausea, Vomiting, bowel or bladder issuesTotal Weight loss 68 lb. Current BMI normal 24.6 with normal% body fat 27.6% visceral fat normal 8Pt is happy with their quality of life after Weight loss Surgery.patient has seen resolution of diabetes and improvement of hypertension. KRISTEN Masters [address], [place], [address], [place] - [facility] - [place] & [place] 11/17/2023 11:19:13 03/20/2024 text/html ROS as noted in the HPI Patient presents the office today for routine follow-up status post bariatric surgery- Naldo-en-Y gastric bypass February 2022.Patient presents the office today for routine follow-up status post bariatric surgery. Patient doing well. Reports q.i.d. small meal intake. Reports 70-90g/dy protein intake and good hydration. Daily Calories 1200In body today shows normal BMI 24. % body fat 27.2% skeletal muscle mass 55.6 and this is 105% predicted visceral fat is normal at 7Taking routine vitamins as advised. Hx of B12 deficiency . Patient is fasting for labs today.Heartburn/fani roesophageal reflux: denies off PPI Improved s/p WLSPt Denies : abdominal pain, prandial issues Nausea, Vomiting, bowel or bladder issuesPt is happy with their quality of life after Weight loss Surgery. Patient has an [facility] plastics to discuss panniculectomy. Oct 2023 OV - Patient presents the office today for routine follow-up status post bariatric surgery. Patient doing well. Reports q.i.d. small meal intake. Reports 90g/dy protein intake and good hydration. Daily Calories 1200Taking routine vitamins as advised. Hx of B12 deficiency Elevated copper rechecked in September w PCP found to be normal at 157.Heartburn/gastro esophageal reflux: Denies off antacidPt Denies : abdominal pain, prandial issues Nausea, Vomiting, bowel or bladder issuesPatient is a little concerned she has gained 4 lb since last office visit July but overall in body looks good. BMI 25.5 with 30.2% body fat basal metabolic rate 1386 visceral fat 8. Patient requests record of weight over the last year to show stability for pursuit of skin removal surgery with Roberts ChapelyPt is happy with their quality of life after Weight loss Surgery. JUL 2023 -OV Patient presents the office today for routine follow-up status post bariatric surgery. Patient doing well. Reports q.i.d. small meal intake. Reports >70g/dy protein intake and good hydration. Daily Calories 1000-1200Taking routine vitamins as advised. Hx of B12 deficiencyHeartburn/ gastroesophageal reflux:Pt Denies : abdominal pain, prandial issues Nausea, Vomiting, bowel or bladder issuesWeight maintenance since LOVPt is happy with their quality of life after Weight loss Surgery. January -- Patient doing well. Reports q.i.d. small meal intake. Reports 80-100g/dy protein intake and good hydration. Daily Calories 1000Taking routine vitamins as advised 12/31/22 labs reviewed on patient's phone. elevated MMA o/w normal including B1 ironHeartburn/gastro esophageal reflux: deniesPt Denies : abdominal pain, prandial issues Nausea, Vomiting, bowel or bladder issuesTotal Weight loss 68 lb. Current BMI normal 24.6 with normal% body fat 27.6% visceral fat normal 8Pt is happy with their quality of life after Weight loss Surgery.patient has seen resolution of diabetes and improvement of hypertension. KRISTEN Masters [address], [place], [address], [facility] [place] [facility] [place] 03/20/2024 10:50:32 07/29/2024 text/html ROS as noted in the HPI Patient presents the office today for routine follow-up status post bariatric surgery- Naldo-en-Y gastric bypass February 2022.Patient presents the office today for routine follow-up status post bariatric surgery. Patient doing well. Reports q.i.d. small meal intake. Reports 90g/dy protein intake and good hydration.Taking routine vitamins as advised. Hx of B12 deficiencyHeartburn/ gastroesophageal reflux: deniesPt Denies : abdominal pain, prandial issues Nausea, Vomiting, bowel or bladder issuesTotal Weight loss 100lbs patient has normal in body readings. Skeletal muscle mass 56 lb % body fat 26.3 BMI 23 sterile fat 7 basal metabolic rate 1366Pt is happy with their quality of life after Weight loss Surgery.Patient does report struggles with pannus. She states this causes frontal forces and inhibits her ability to work/exercise. She reports back pain with increased activity Patient has consulted with [facility] and states she plans to have panniculectomy February - Patient presents the office today for routine follow-up status post bariatric surgery. Patient doing well. Reports q.i.d. small meal intake. Reports 70-90g/dy protein intake and good hydration. Daily Calories 1200In body today shows normal BMI 24. % body fat 27.2% skeletal muscle mass 55.6 and this is 105% predicted visceral fat is normal at 7Taking routine vitamins as advised. Hx of B12 deficiency . Patient is fasting for labs today.Heartburn/fani roesophageal reflux: denies off PPI Improved s/p WLSPt Denies : abdominal pain, prandial issues Nausea, Vomiting, bowel or bladder issuesPt is happy with their quality of life after Weight loss Surgery. Patient has an appt [facility] plastics to discuss panniculectomy. Oct 2023 OV - Patient presents the office today for routine follow-up status post bariatric surgery. Patient doing well. Reports q.i.d. small meal intake. Reports 90g/dy protein intake and good hydration. Daily Calories 1200Taking routine vitamins as advised. Hx of B12 deficiency Elevated copper rechecked in September w PCP found to be normal at 157.Heartburn/gastro esophageal reflux: Denies off antacidPt Denies : abdominal pain, prandial issues Nausea, Vomiting, bowel or bladder issuesPatient is a little concerned she has gained 4 lb since last office visit July but overall in body looks good. BMI 25.5 with 30.2% body fat basal metabolic rate 1386 visceral fat 8. Patient requests record of weight over the last year to show stability for pursuit of skin removal surgery with Roberts ChapelyPt is happy with their quality of life after Weight loss Surgery. Jul 2023 - Patient presents the office today for routine follow-up status post bariatric surgery. Patient doing well. Reports q.i.d. small meal intake. Reports >70g/dy protein intake and good hydration. Daily Calories 1000-1200Taking routine vitamins as advised. Hx of B12 deficiencyHeartburn/ gastroesophageal reflux:Pt Denies : abdominal pain, prandial issues Nausea, Vomiting, bowel or bladder issuesWeight maintenance since LOVPt is happy with their quality of life after Weight loss Surgery. January -- Patient doing well. Reports q.i.d. small meal intake. Reports 80-100g/dy protein intake and good hydration. Daily Calories 1000Taking routine vitamins as advised 12/31/22 labs reviewed on patient's phone. elevated MMA o/w normal including B1 ironHeartburn/gastro esophageal reflux: deniesPt Denies : abdominal pain, prandial issues Nausea, Vomiting, bowel or bladder issuesTotal Weight loss 68 lb. Current BMI normal 24.6 with normal% body fat 27.6% visceral fat normal 8Pt is happy with their quality of life after Weight loss Surgery.patient has seen resolution of diabetes and improvement of hypertension. KRISTEN Masters [address], [place], [address], [facility] [place] [facility] [place] 07/29/2024 10:34:42 OBGyn Episode No OBEpisode recorded.
--- NOTE | 2025-08-07 15:45 | MM_ITS ---
PROCEDURE INFORMATION: Exam: MG Bilateral Screening 3D Mammography Exam date and time: 08/07/2025 3:39 PM Age: 50 years old Clinical indication: Screening exam. TECHNIQUE: Imaging protocol: Bilateral Screening tomosynthesis and 2D mammography including computer-aided detection (CAD) when performed. COMPARISON: 1. MG MM DIG SCREENING MAMM BI W/CAD 08/01/2024 9:46 AM 2. MG MM DIG SCREENING MAMM BI W/CAD 07/31/2023 9:49 AM FINDINGS: MAMMOGRAPHY: Breast composition: There are scattered areas of fibroglandular density. Mass: No suspicious masses. Architectural distortion: None. Calcifications: No suspicious calcifications. Asymmetric density: None. Skin thickening: None. Axillary adenopathy: None. IMPRESSION: No mammographic evidence of malignancy. Annual screening is recommended unless otherwise clinically indicated. ASSESSMENT: BI-RADS Category 1: Negative.
== END 2025-08-07 23:59 | disposition home or self-care (01) ==
LOC: RAD 15:32
PROVIDERS: PCP Internal Medicine; Visit Provider Internal Medicine
DX: Z12.31 Encounter for screening mammogram for malignant neoplasm of breast (principal); R92.323 Mammographic fibroglandular density, bilateral breasts
CPT/HCPCS: 77063; 77067

== ENCOUNTER 2025-10-14 12:08 | Outpatient (CLI) | payer BC, SELFPAY ==
--- OUTSIDE RECORDS SUMMARY | 2025-10-14 12:10 | XMS_ITS | Clinical Summary ---
Author Organization [facility] Address [address] [place] [address] Care Team Providers Care Boatwright Name Role Phone Romulo Hudson MD Primary Care Provider [phone] Allergies Active Allergy Reactions Criticality Noted Date Comments Artificial Sweetener Headache High 05/16/2025 Hydrocodone Itching Medium 05/16/2025 Metformin Rash Low 04/16/2025 Other Rash Low 04/16/2025 Rybelsus Medroxyprogesterone Rash Low 04/16/2025 Medications estradiol (Estrace) 2 MG tablet Take 1 tablet by mouth daily. Active fluconazole (Diflucan) 100 MG tablet Take 1 tablet by mouth daily. as directed 4 Active hydroCHLOROthia zide (HYDRODiuril) 25 MG tablet daily as needed. 4 Active levothyroxine (Synthroid, Levoxyl) 50 MCG tablet Take 1 tablet by mouth every morning. Active Nystop 815690 UNIT/GM powder APPLY TOPICALLY TO THE AFFECTED AREA(S) FOUR TIMES DAILY NEEDED -- FOR EXTERNAL USE ONLY-- Active triamcinolone (Kenalog) 0.1 % cream APPLY TOPICALLY TO THE AFFECTED AREA(S) THREE TIMES DAILY NEEDED FOR RASH 4 Active B Complex-C (b complex-vitamin c) tablet Take 1 tablet by mouth daily. Active Multiple Vitamins-Minera ls (multivitamin with minerals) tablet Take 1 tablet by mouth. Active cyclobenzaprine (Flexeril) 10 MG tablet Take 1 tablet by mouth 3 times a day. 30 tablet 5 Active oxyCODONE-aceta minophen (Percocet) 5-325 MG tablet Take 1 tablet by mouth every 6 hours as needed for severe pain. 12 tablet Active Active Problems Problem Noted Date Diagnosed Date Excessive and redundant skin and subcutaneous ti ssue 05/16/2025 Hypothyroidism 05/16/2025 HTN (hypertension) 05/16/2025 Mild intermittent asthma without complication Excess skin of abdomen 05/09/2024 Resolved Problems Problem Noted Date Diagnosed Date Resolved Date PONV (postoperative nausea and vomiting) 05/16/2025 08/17/2025 Family History Medical History Relation Name Comments Cancer Maternal Grandmother Diabetes Maternal Grandmother Diabetes Mother Diabetes Other Heart disease Other Malig Hyperthermia Neg Hx Relation Name Status Comments Maternal Grandmother Mother Other Social History Tobacco Use Types Packs/Day Years Used Date Smoking Tobacco: Never Smokeless Tobacco: Never Tobacco Cessation:Counseling Given: Not Answered Alcohol Use Standard Drinks/Week Comments Never 0 (1 standard drink = 0.6 oz pur e alcohol) CAGE ASSESSMENT Answer Date Recorded Cage unable to access Not on file 05/16/2025 Cage max number of drinks Not on file 2024 Cage Beverages a week Not on file 05/16/2025 Have you ever felt you should CUT down on your d rinking? 0 05/16/2025 Have you been ANNOYED by people criticizing your drinking? 0 05/16/2025 Have you felt GUILTY about your drinking? 0 05/16/2025 Have you had a drink first t wesley in the morning ([employer]) to steady your nerves or to get rid of a hangover? 0 05/16/2025 CAGE Questionnaire Score 0 025 Comments No Sex and Gender Information Value Date Recorded Sex Assigned at Not on file Legal Sex Female 8:00 PM EDT Gender Identity Not on file Sexual Orientation Not on file Last Filed Vital Signs Vital Sign Reading Time Taken Comments Blood Pressure 149/93 07/04/2025 9:06 AM EDT Pulse 63 07/04/2025 9:06 AM EDT Temperature 36.6 C (97.8 F) 05/17/2025 7:52 AM EDT Respiratory Rate 14 05/16/2025 11:51 PM EDT Oxygen Saturation 99% 07/04/2025 9:06 AM EDT Inhaled Oxygen Concentration - - Weight 69.6 kg (153 lb 7 oz) 07/04/2025 9:06 AM EDT Height 162.6 cm (5' 4 ) 06/06/2025 8:09 AM EDT Body Mass Index 26.34 06/06/2025 8:09 AM EDT Plan of Treatment Health Maintenance Due Date Last Done Comments [facility]-Depression Screening 1975 [facility]-HIV Screening 1975 [facility]-Hepatitis C Screening 1975 [facility]-Infant/Child/Adol SDOH Screenings 1975 [id number] Vaccine (#1) 1975 [facility]- SDOH Screenings 1993 [facility]-Adult SDOH Screenings 1993 [facility]-DTaP,Tdap,and Td Vaccines (1 - Tdap) 1994 [facility]-Hepatitis B Vaccines (1 of 3 - 19+ 3-dose series) 1994 [facility]-Pneumococcal Vaccine: 50+ Years (1 of 2 - PCV) 1994 CT Colonography 2020 Colonoscopy 2020 FIT-DNA 2020 FIT 2020 FOBT 2020 Sigmoidoscopy 2020 [facility]-Colorectal Cancer Screening 2020 [facility]-Breast Cancer Screening 2025 [facility]-Zoster Vaccines (1 of 2) 2025 [facility]-Influenza Vaccine (#1) 2025 07/26/2024, [facility]-Obesity Intervention Completed 025, 06/06/2025, 05/29/2025, Additional history exists HPV Vaccines (No Doses Required) Completed [facility]-HIB Vaccines Aged Out No longer e ligible based on patient's age to complete this topic [facility]-Hepatitis A Vaccines Aged Out No longer eligible based on patient's age to complete this topic [facility]-IPV Vaccines Aged Out No longer e ligible based on patient's age to complete this topic [facility]-Rotavirus Vaccines Aged Out No lo nger eligible based on patient's age to complete this topic Insurance [employer] Advance Directives * Full Code (Latest Code Status on File) Date Activated Date Inactivated Comments 05/16/2025 7:16 PM 05/17/2025 1:25 PM Question Answer Comments I have reviewed the capacity from the link above and, if needed, have updated to appropriate status: Yes Care Teams Boatwright Relationship Specialty Start Date End Date Romulo Hudson MD [address] [facility] [address] [place] [address] PCP - General 11/16/23
[2025-10-14 12:43] LABS: Hematocrit 35.9 % (37.0-47.0); Hemoglobin 10.9 g/dL (12.2-16.2); Immature Granulocytes % 0.1 %; Mean Corpuscular HGB Conc 30.4 g/dL (31.8-35.4); Mean Corpuscular Hemoglobin 26.2 pg (27.0-31.2); Mean Corpuscular Volume 86.3 fl (81-99); Nucleated Red Blood Cells % 0 %; Platelet Count 311 K/mm3 (142-424); Red Blood Count 4.16 M/mm3 (4.20-5.40); Red Cell Distribution Width-SD 53.7 fL; White Blood Count 6.9 K/mm3 (4.8-10.8)
[2025-10-14 12:57] LABS: Alanine Aminotransferase 22 U/L (12-78); Albumin Level 3.9 g/dl (3.5-5.0); Albumin/Globulin Ratio 1.1 (1.1-1.8); Alkaline Phosphatase 79 U/L (38-126); Anion Gap 8.1 mEq/L (5-15); Aspartate Amino Transferase 35 U/L (14-36); Bilirubin,Total 0.5 mg/dl (0.2-1.3); Blood Urea Nitrogen 21 mg/dl (7-17); Calcium 8.9 mg/dl (8.4-10.2); Carbon Dioxide 30 mmol/L (22.0-30.0); Chloride 102 mmol/L (98-107); Creatinine,Serum 0.80 mg/dl (0.52-1.04); Estimated Glomerular Filt Rate 76 ml/min (>60); GFR (African American) 92 ML/MIN (>60); Globulin 3.5 g/dL (1.3-3.2); Glucose 95 mg/dl (74-100); Potassium 4.1 mmoL/L (3.5-5.1); Sodium 136 mmol/L (136-145); Total Protein,Serum 7.4 g/dl (6.3-8.2)
[2025-10-14 13:10] LABS: 25-OH Vitamin D, Total 40.8 ng/mL (30-100)
[2025-10-14 13:12] LABS: T4 (Thyroxine) 10.2 ug/dl (5.53-11.0)
[2025-10-14 13:26] LABS: Thyroid Stimulating Hormone 1.50 uIU/mL (0.465-4.68)
[2025-10-14 14:00] LABS: Folate 16.60 ng/mL
== END 2025-10-14 23:59 | disposition home or self-care (01) ==
LOC: LAB 12:08
PROVIDERS: PCP Internal Medicine; Visit Provider Physician Assistant
DX: E53.8 Deficiency of other specified B group vitamins (principal); E67.3 Hypervitaminosis D; Z90.3 Acquired absence of stomach [part of]; R53.83 Other fatigue
CPT/HCPCS: 36415; 80053; 82306; 82746; 84425; 84436; 84443; 85025